=== PATIENT | female | born 1950 | race Caucasian/White ===

== ENCOUNTER → 2018-04-06 07:50 | Outpatient (CLI) | payer MEDICARE, OTHER, SELFPAY ==
[2018-04-06 08:41] LABS: Estimated Glomerular Filt Rate 49.7 mL/min (>60)
[2018-04-06 09:20] LABS: Cortisol AM (Before 10AM) 14.2 ug/dL (4.46-22.7)
[2018-04-08 18:42] LABS: Aldosterone/Renin Activity Rat 33.3 Ratio (0.9-28.9); Plama Renin, LC/MS/MS 0.12 ng/mL/h (0.25-5.82)
== END ==
PROVIDERS: Family Provider Physician Assistant; PCP Physician Assistant; Visit Provider Internal Medicine Endocrinology, Diabetes & Metabolism
DX: D35.00 Benign neoplasm of unspecified adrenal gland (principal)
CPT/HCPCS: 36415; 82088; 82533; 82565; 84244

== ENCOUNTER → 2018-04-07 10:01 | Outpatient (CLI) | payer MEDICARE, OTHER, SELFPAY ==
--- NOTE | 2018-04-07 | DI.RAD.S_ITS ---
PROCEDURE: XR CHEST 2V INDICATIONS: Acute upper respiratory infection TECHNIQUE: 2 views of the chest were acquired. COMPARISON: [facility], CR, CHEST 1 VIEW, 08/12/2017, 13:38. [facility], CR, CHEST 1 VIEW, 08/10/2017, 20:18. [facility], CT, CHEST/ABD/PEL WITHOUT CONTRAST, 08/12/2017, 15:09. [facility], CR, CHEST FOR PICC PLACEMENT, 08/12/2017, 17:13. FINDINGS: Surgical changes and devices: None. Lungs and pleura: The right lower lobe infiltrate is seen. Blunting of the costophrenic angles can be seen. No pneumothorax is detected. Mediastinum: The cardiac contours are within normal limits. The aorta demonstrates calcification and tortuosity. Bones and chest wall: No suspicious bony abnormalities. Age-appropriate bony degenerative changes are seen. Levoconvex thoracolumbar scoliotic curvature is seen. Soft tissues appear unremarkable. IMPRESSION: Right lower lobe infiltrate. Note: Findings relayed to [facility] office staff, Goldie, at 10:31 AM [place] time on April 07, 2018. [facility] will call back if there any questions. Dictated by: Juan Manuel Pink M.D. on 04/07/2018 at 9:28 Approved by: Juan Manuel Pink M.D. on 04/07/2018 at 9:33
== END ==
PROVIDERS: PCP Physician Assistant; Visit Provider Physician Assistant
DX: J06.9 Acute upper respiratory infection, unspecified (principal)
CPT/HCPCS: 71046

== ENCOUNTER → 2018-04-22 09:21 | Outpatient (CLI) | payer MEDICARE, OTHER, SELFPAY ==
[2018-04-22 11:32] LABS: Collection Time Urine 24 Hours; Creatinine 24 Hour Urine 754 mg/day (800-1800); Total Volume Urine 2600 mL
== END ==
PROVIDERS: Family Provider Physician Assistant; PCP Physician Assistant; Visit Provider Internal Medicine Endocrinology, Diabetes & Metabolism
DX: D35.00 Benign neoplasm of unspecified adrenal gland (principal)
CPT/HCPCS: 82530; 82570

== ENCOUNTER 2018-06-21 08:56 | Emergency (ER) | payer MEDICARE, OTHER, SELFPAY ==
[2018-06-21 09:06] VITALS: BP 145/82; PULSE 94; RESP 18; O2SAT 93; BMI 18.0
--- NOTE | 2018-06-21 09:11 | ED.SOB ---
HPI - SOB/Dyspnea General Chief Complaint: Shortness of Breath/Dyspnea Stated Complaint: DEHYDRATED,CHEST HURTS Time Seen by Provider: 06/21/18 09:06 Source: patient Mode of arrival: ambulatory Limitations: no limitations History of Present Illness Patient is a 68-year-old female here for evaluation of a productive cough, chest discomfort secondary to the cough, diarrhea. Patient states that she also feels very lethargic and dehydrated. States she is taking her medications. Has never been diagnosed with COPD but is a long-term smoker. She received a DuoNeb prior to my evaluation due to right-sided diminished sounds per respiratory therapy evaluation. Patient states that the DuoNeb did help her symptoms somewhat. She denies any fevers. Has had pneumonia multiple times in the past. Related Data Home Medications Medication Instructions Recorded Confirmed amlodipine [Norvasc] 10 mg PO HS #0 04/03/12 11/11/17 diazepam [Valium] 2.5 - 5 mg PO Q8HP #0 04/03/12 11/11/17 levothyroxine 0.088 mg PO QAM #0 04/03/12 11/11/17 morphine [MS Contin] 15 mg PO QAM #0 04/03/12 11/11/17 simvastatin [Zocor] 20 mg PO HS #0 04/03/12 11/11/17 omega 0-pfm-meo-fish oil [Fish Oil] 1,400 mg PO BID #0 08/05/12 11/11/17 topiramate [Topamax] 200 mg PO BID #0 08/05/12 11/11/17 [boswellia glucosamin] PO BID #0 08/10/17 aspirin 81 mg PO QDAY #0 08/10/17 11/11/17 hydromorphone [Dilaudid] 4 mg PO PRN PRN #0 08/10/17 11/12/17 losartan 50 mg PO QDAY #0 08/10/17 11/11/17 methocarbamol 500 mg PO PRN PRN #0 08/10/17 11/11/17 venlafaxine 150 mg PO QDAY #0 08/10/17 11/11/17 calcium citrate-vitamin D3 1,200 mg PO QDAY #0 08/12/17 11/11/17 [Citracal Regular] multivitamin [Multiple Vitamins] 1 tab PO QDAY #0 08/12/17 11/11/17 propranolol 1 cap PO QDAY 11/11/17 11/11/17 Previous Rx's Medication Instructions Recorded albuterol sulfate 2 puff INHALATION Q4-6H PRN #18 06/21/18 gram doxycycline hyclate 100 mg PO BID 7 Days #14 cap 06/21/18 Allergies Allergy/AdvReac Type Severity Reaction Status Date / Time latex Allergy Intermediate HIVES Verified 06/21/18 09:06 adhesive Allergy Mild HIVES Verified 06/21/18 09:06 [place] bupropion [From WELLBUTRIN] Allergy Mild Verified 06/21/18 09:06 cephalexin [From KEFLEX] Allergy Mild Verified 06/21/18 09:06 gabapentin [From NEURONTIN] Allergy Mild Verified 06/21/18 09:06 pregabalin [From LYRICA] Allergy Mild Verified 06/21/18 09:06 indomethacin [INDOMETHACIN] AdvReac Intermediate MEMORY Verified 06/21/18 09:06 ISSUES Review of Systems Constitutional Denies fever(s), Reports lethargy and Reports weakness Cardiovascular Reports chest pain, Denies palpitations, Reports dyspnea and Denies slow heart rate Respiratory Reports cough, Reports excessive phlegm production, Reports dyspnea and Reports wheezing Gastrointestinal Gastrointestinal: Denies abdominal pain, Reports diarrhea, Denies nausea and Denies vomiting Genitourinary Denies dysuria Musculoskeletal Denies myalgias and Denies arthralgias Integumentary/Breasts Denies lesions and Denies rash Neurologic Denies behavioral changes and Reports weakness Comments: Decreased activity Psychiatric Denies behavioral changes Endocrine Denies palpitations Hematologic/Lymphatic Comments: Not on anticoagulation Allergic/Immunologic Denies urticaria and Reports wheezing PFSH Medical History CVA (cerebral vascular accident) (Acute) Social History Smoking Status: Current every day smoker Social History Smoking Status: Current every day smoker Exam Initial Vital Signs Initial Vital Signs: Vital Signs Pulse Rate 94 H 06/21/18 09:06 Respiratory Rate 18 06/21/18 09:06 Blood Pressure 145/82 H 06/21/18 09:06 Pulse Oximetry 93 06/21/18 09:06 Const General: cooperative, comfortable, well developed, well groomed and No acute distress Orientation: alert, awake and oriented x3 HENMT Head: normocephalic Chest Chest: normal inspection of the chest Resp Effort & Inspection: normal respiratory effort Auscultation: other (Coarse breath sounds right side throughout.) Cardio Rate: regular rate Rhythm: regular rhythm Pulses: radial pulses present GI Inspection: non-distended Palpation: soft, No firm and No tender Skin Lesions: no lesions Rashes: no rashes Neuro General: alert, awake and oriented x3 Extrem General: normal to inspection and capillary refill normal Psych Appearance: grossly normal and well kempt Course Orders Ordered: ED Orders 06/21/18 09:10 XR chest 1V Stat B Type Natriuretic Peptide Stat Complete Blood Count AUTO DIFF Stat Comprehensive Metabolic Panel Stat Partial Thromboplastin Time Stat Prothrombin Time INR Stat Troponin I Stat EKG-12 Lead Stat RT Consult Eval and Treat Now Discontinued Medications Albuterol/Ipratropium (Duoneb) 3 ml INH NOW ONE Stop: 06/21/18 09:10 Last Admin: 06/21/18 09:12 Dose: 3 ml Sodium Chloride (Normal Saline 0.9%) 1,000 mls @ 1,000 mls/hr IV BOLUS ONE Stop: 06/21/18 10:10 Last Infusion: 06/21/18 11:14 Dose: 0 mls/hr Admin: 06/21/18 09:27 Dose: 1,000 mls/hr Vital Signs - 8 hr 06/21/18 10:32 06/21/18 11:00 Temperature 98.2 F Pulse Rate 82 87 Respiratory Rate 21 14 Blood Pressure [Right Arm] 152/83 H 149/88 H Pulse Oximetry 95 MDM - SOB/Dyspnea Medical Records Attestation: I reviewed the patient's medical records. Lab Data Attestation: I reviewed the patient's lab results. Result diagrams: 06/21/18 09:10 06/21/18 09:10 Lab Results 06/21/18 06/21/18 06/21/18 Range/Units 09:10 09:10 09:10 WBC 17.9 H (4.5-11.0) X10^3/uL RBC 4.42 (4.0-5.2) X10^6/uL Hgb 12.2 (12.0-16.0) g/dL Hct 37.7 (36-46) % MCV 85.3 (80-100) fL MCH 27.7 (26-34) PG MCHC 32.4 (30-36) % RDW 15.7 H (11.6-14.8) % Plt Count 661 H (150-400) X10^3/uL Neut % (Auto) 81.9 H (50-75) % Lymph % (Auto) 8.7 L (25-40) % [place] % (Auto) 7.7 (3-14) % Eos % (Auto) 0.9 L (2-4) % Baso % (Auto) 0.8 (0-2) % Neut # (Auto) 43535 H (9340-9441) /uL Lymph # (Auto) 1600 (6774-7992) /uL [place] # (Auto) 1400 H (0-900) /uL Eos # (Auto) 200 (0-450) /uL Baso # (Auto) 100 (0-100) /uL PT 12.1 (10.1-12.7) SECONDS INR 1.0 (0.9-1.3) APTT 32 (26.4-36.2) SECONDS Sodium 140 (137-145) mmol/L Potassium 3.4 (3.4-5.1) mmol/L Chloride 105 (98-107) mmol/L Carbon Dioxide 23 (22-32) mmol/L BUN 17 (7-17) mg/dL Creatinine 1.10 H (0.52-1.04) mg/dL Estimated GFR 49.5 L (>60) mL/min BUN/Creatinine Ratio 15.5 (6-22) Glucose 149 H (80-110) mg/dL Calcium 9.9 (8.4-10.2) mg/dL Total Bilirubin 0.6 (0.2-1.3) mg/dL AST 51 H (14-36) IU/L ALT 42 (9-52) IU/L Alkaline Phosphatase 141 H (38-126) U/L Troponin I (0.01-0.034) ng/mL B-Natriuretic Peptide 221 H (<100) Total Protein 8.9 H (6.3-8.2) g/dL Albumin 4.2 (3.5-5.0) g/dL Globulin 4.7 H (1.7-4.1) g/dL Albumin/Globulin Ratio 0.9 L (1.0-2.8) 06/21/18 Range/Units 09:10 WBC (4.5-11.0) X10^3/uL RBC (4.0-5.2) X10^6/uL Hgb (12.0-16.0) g/dL Hct (36-46) % MCV (80-100) fL MCH (26-34) PG MCHC (30-36) % RDW (11.6-14.8) % Plt Count (150-400) X10^3/uL Neut % (Auto) (50-75) % Lymph % (Auto) (25-40) % [place] % (Auto) (3-14) % Eos % (Auto) (2-4) % Baso % (Auto) (0-2) % Neut # (Auto) (1251-0629) /uL Lymph # (Auto) (3741-1476) /uL [place] # (Auto) (0-900) /uL Eos # (Auto) (0-450) /uL Baso # (Auto) (0-100) /uL PT (10.1-12.7) SECONDS INR (0.9-1.3) APTT (26.4-36.2) SECONDS Sodium (137-145) mmol/L Potassium (3.4-5.1) mmol/L Chloride (98-107) mmol/L Carbon Dioxide (22-32) mmol/L BUN (7-17) mg/dL Creatinine (0.52-1.04) mg/dL Estimated GFR (>60) mL/min BUN/Creatinine Ratio (6-22) Glucose (80-110) mg/dL Calcium (8.4-10.2) mg/dL Total Bilirubin (0.2-1.3) mg/dL AST (14-36) IU/L ALT (9-52) IU/L Alkaline Phosphatase (38-126) U/L Troponin I < 0.012 (0.01-0.034) ng/mL B-Natriuretic Peptide (<100) Total Protein (6.3-8.2) g/dL Albumin (3.5-5.0) g/dL Globulin (1.7-4.1) g/dL Albumin/Globulin Ratio (1.0-2.8) Imaging Data Chest x-ray: Radiologist's impression: [address] [id number] XRay Report Signed Patient: Yisel Cuevas JMR#: [id number] : 2Acct:[id number] Age/Sex: 68 / FDate of Service: 06/21/18 Loc: ED Accession Number: [id number] Procedure: XR chest 1V Ordering Provider: Andrea Shaffer D.O. PROCEDURE: XR CHEST 1V INDICATIONS: Shortness of breath TECHNIQUE: One view of the chest was acquired. COMPARISON: [facility], CR, XR CHEST 2V, 04/07/2018, 10:08. [facility], CR, CHEST FOR PICC PLACEMENT, 08/12/2017, 17:13. FINDINGS: Surgical changes and devices: None. Lungs and pleura: Lungs are abnormal with a chronic interstitial prominence and what appears to be mild or early pneumonia left lower lobe. Also, lung volumes are large, COPD is suspected. No pleural effusions or pneumothorax. Mediastinum: Mediastinal contours appear normal. Heart size is normal. Bones and chest wall: No suspicious bony lesions. Overlying soft tissues appear unremarkable. IMPRESSION: Suspect COPD given the large lung volumes present. Chronic interstitial prominence. Left lower lobe mild or early pneumonia. Dictated by: Jose Montoya M.D. on 06/21/2018 at 9:56 Approved by: Jose Montoya M.D. on 06/21/2018 at 9:56 ECG Data Attestation: I personally reviewed and interpreted this ECG as follows: Prior ECG tracings: not available for review Interpretation: Sinus rhythm Ventricular rate of 91 Normal axis Normal QRS Normal QTC LVH Nonspecific ST T wave changes MDM Narrative Medical decision making narrative: Patient not in any respiratory distress. Has a left-sided pneumonia on the chest x-ray. This does explain her leukocytosis. Patient has had thrombocytosis in the past. Was slightly elevated today but this could also be an acute phase reactant secondary to her pneumonia. Will treat the patient with antibiotics. Do not feel like she needs admitted to the hospital. I discussed return precautions with the patient. She expressed understanding and agreement with plan. Discharge Plan Departure Patient Disposition: Home Clinical Impression: Pneumonia, Thrombocytosis Discharge Date/Time: 06/21/18 11:30 Interventions: ED Discharge Assessment Last Done: 06/21/18 12:02 Instructions: DI for Pneumonia -- Adult Activity Restrictions/Additional Instructions: I do recommend that on Friday you contact your primary care doctor for a follow-up. Take your medications as directed. Return to the emergency department for any new or worsening symptoms Prescriptions: New doxycycline hyclate 100 mg capsule 100 mg PO BID 7 Days Qty: 14 RF: 0 albuterol sulfate 90 mcg/actuation HFA aerosol inhaler 2 puff INHALATION Q4-6H PRN (Reason: shortness of breath or wheezing) Qty: 18 RF: 0 No Action morphine [MS Contin] 30 MG tablet extended release 15 mg PO QAM Qty: 0 RF: 0 levothyroxine 88 MCG tablet 0.088 mg PO QAM Qty: 0 RF: 0 simvastatin [Zocor] 20 MG tablet 20 mg PO HS Qty: 0 RF: 0 amlodipine [Norvasc] 10 MG tablet 10 mg PO HS Qty: 0 RF: 0 diazepam [Valium] 5 MG tablet 2.5 - 5 mg PO Q8HP Qty: 0 RF: 0 topiramate [Topamax] 100 MG tablet 200 mg PO BID Qty: 0 RF: 0 omega 1-zcs-xsr-fish oil [Fish Oil] 1,000 mg (120 mg-180 mg) Capsule 1,400 mg PO BID Qty: 0 RF: 0 aspirin 81 MG tablet,chewable 81 mg PO QDAY Qty: 0 RF: 0 [boswellia glucosamin] PO BID Qty: 0 RF: 0 losartan 50 MG tablet 50 mg PO QDAY Qty: 0 RF: 0 hydromorphone [Dilaudid] 4 MG tablet 4 mg PO PRN PRN (Reason: Pain (Scale Score 7-10)) Qty: 0 RF: 0 methocarbamol 500 MG tablet 500 mg PO PRN PRN (Reason: UNKNOWN) Qty: 0 RF: 0 venlafaxine 150 MG capsule,extended release 24hr 150 mg PO QDAY Qty: 0 RF: 0 calcium citrate-vitamin D3 [Citracal Regular] 250 mg calcium- 200 unit Tablet 1,200 mg PO QDAY Qty: 0 RF: 0 multivitamin [Multiple Vitamins] 1 EACH tablet 1 tab PO QDAY Qty: 0 RF: 0 propranolol 120 MG capsule,extended release 24 hr 1 cap PO QDAY RF: 0
[2018-06-21 09:12] VITALS: PULSE 85; RESP 12; O2SAT 92
[2018-06-21] MEDS: ALBUTEROL/IPRATROPIUM 3 ML AMPUL INH (09:12)
[2018-06-21 09:19] LABS: Add Manual Diff / Slide Review NO; Basophils Absolute Auto 100 /uL (0-100); Basophils Percent Auto 0.8 % (0-2); Eosinophils Absolute Auto 200 /uL (0-450); Eosinophils Percent Auto 0.9 % (2-4); Hematocrit 37.7 % (36-46); Hemoglobin 12.2 g/dL (12.0-16.0); Lymphocytes Absolute Auto 1600 /uL (1100-4500); Lymphocytes Percent Auto 8.7 % (25-40); Mean Corpuscular HGB Conc 32.4 % (30-36); Mean Corpuscular Hemoglobin 27.7 PG (26-34); Mean Corpuscular Volume 85.3 fL (80-100); Monocytes Absolute Auto 1400 /uL (0-900); Monocytes Percent Auto 7.7 % (3-14); Neutrophils Absolute Auto 14700 /uL (1500-7000); Neutrophils Percent Auto 81.9 % (50-75); Platelet Count 661 X10^3/uL (150-400); Red Blood Cell Count 4.42 X10^6/uL (4.0-5.2); Red Cell Distribution Width 15.7 % (11.6-14.8); White Blood Cell Count 17.9 X10^3/uL (4.5-11.0)
[2018-06-21 09:25] LABS: Prothrombin Time 12.1 SECONDS (10.1-12.7)
[2018-06-21] MEDS: SODIUM CHLORIDE 0.9% 1,000 ML 1000 ML IV (09:27)
[2018-06-21 09:28] LABS: PTT Partial Thromboplastin Tim 32 SECONDS (26.4-36.2)
[2018-06-21 09:30] LABS: Alanine Aminotransferase 42 IU/L (9-52); Albumin 4.2 g/dL (3.5-5.0); Albumin Globulin Ratio 0.9 (1.0-2.8); Alkaline Phosphatase 141 U/L (38-126); Aspartate Aminotransferase 51 IU/L (14-36); BUN Creatinine Ratio 15.5 (6-22); Bilirubin Total 0.6 mg/dL (0.2-1.3); Blood Urea Nitrogen 17 mg/dL (7-17); Calcium 9.9 mg/dL (8.4-10.2); Carbon Dioxide 23 mmol/L (22-32); Chloride 105 mmol/L (98-107); Estimated Glomerular Filt Rate 49.5 mL/min (>60); Globulin 4.7 g/dL (1.7-4.1); Glucose 149 mg/dL (80-110); HEMOLYSIS 41 (0-50); Potassium 3.4 mmol/L (3.4-5.1); Sodium 140 mmol/L (137-145); Total Protein 8.9 g/dL (6.3-8.2)
[2018-06-21 09:43] LABS: Troponin I < 0.012 ng/mL (0.01-0.034)
[2018-06-21 09:44] LABS: B Type Natriuretic Peptide 221 (<100)
[2018-06-21 10:32] VITALS: BP 152/83; PULSE 82; RESP 21
[2018-06-21 11:00] VITALS: BP 149/88; PULSE 87; RESP 14; TEMP 36.8; O2SAT 95
--- NOTE | 2018-06-21 12:02 | PC.NURSE ---
spacer training done by RT.
== END 2018-06-21 11:30 | disposition home or self-care (01) ==
PROVIDERS: Emergency Provider Emergency Medicine; Family Provider Physician Assistant; PCP Physician Assistant
DX: J18.9 Pneumonia, unspecified organism (principal); D69.6 Thrombocytopenia, unspecified
CPT/HCPCS: 36591; 71045; 80053; 83880; 84484; 85025; 85610; 85730; 93005; 94640; 96360; 96361; 99283; 99285

== ENCOUNTER → 2018-07-15 10:33 | Outpatient (CLI) | payer MEDICARE, OTHER, SELFPAY ==
--- NOTE | 2018-07-15 | DI.CT.S_ITS ---
PROCEDURE: CT CHEST WO CON INDICATIONS: Pneumonia TECHNIQUE: Noncontrast 5 mm thick sections acquired from the pulmonary apices to the posterior costophrenic angles. 7 mm thick coronal and sagittal MIP reformats were then acquired. For radiation dose reduction, the following was used: automated exposure control, adjustment of mA and/or kV according to patient size. COMPARISON: [facility], CT, CHEST/ABD/PEL WITHOUT CONTRAST, 08/12/2017, 15:09. [facility], CR, XR CHEST 2V, 04/07/2018, 10:08. [facility], CR, XR CHEST 1V, 06/21/2018, 9:14. FINDINGS: Image quality: Excellent. Lungs and pleura: Minimal patchy opacities can be seen within the dependent lower lobes, right worse than left. There is also mild patchy opacity seen within the lingula. These areas of abnormal consolidation are clearly improved compared to 08/12/17 and are also believed to be compared to the prior recent plain film. Within the left upper lobe, patchy nodular opacities can be seen. No pneumothorax or pleural effusions are seen. The central airways are patent. Centrilobular emphysematous changes are seen. These are more prominent at the lung apices than at the lung bases. Mediastinum: Heart size is normal. No pericardial effusion. No mediastinal adenopathy by size criteria. Thoracic aorta and central pulmonary arteries are normal in size. Atherosclerotic calcification is noted. Esophagus is normal in caliber. No hiatal hernia. Bones and chest wall: No suspicious bony lesions. No vertebral body compression fractures. No axillary or supraclavicular adenopathy by size criteria. Thyroid gland demonstrates no significant noncontrast abnormality. Abdomen: There is a low-density right adrenal nodule seen that measures 2.3 cm and -18 Hounsfield units. Low-density nodular thickening can also be seen on the left adrenal gland, with the largest nodule measuring 2.6 cm and the -8 Hounsfield units. Visualized upper abdominal solid organs and bowel loops appear normal in the absence of contrast. IMPRESSION: Improving opacity seen at the lung bases, with an appearance is most consistent with resolving infection. As clinically appropriate, please consider a followup noncontrast chest CT in 3 months, to assure complete resolution. Benign fatty lesions are seen of both adrenal glands. As clinically appropriate, please correlate with macronodular adrenal hyperplasia and serum cortical levels. Dictated by: Juan Manuel Pink M.D. on 07/15/2018 at 12:32 Approved by: Juan Manuel Pink M.D. on 07/15/2018 at 12:37
== END ==
PROVIDERS: Family Provider Physician Assistant; PCP Physician Assistant; Visit Provider Physician Assistant
DX: J18.9 Pneumonia, unspecified organism (principal)
CPT/HCPCS: 71250

== ENCOUNTER → 2018-07-20 07:41 | Outpatient (CLI) | payer MEDICARE, OTHER, SELFPAY ==
--- NOTE | 2018-07-20 | DI.MG.S_ITS ---
BILATERAL DIGITAL SCREENING MAMMOGRAM 3D/2D WITH CAD: 07/20/2018 CLINICAL: Routine screening. Family history of breast cancer. Comparison is made to exams dated: 04/21/2017 mammogram, 04/11/2014 mammogram, and 03/28/2011 mammogram - [facility]. The tissue of both breasts is heterogeneously dense. This may lower the sensitivity of mammography. Current study was also evaluated with a Computer Aided Detection (CAD) system. No significant masses, calcifications, or other findings are seen in either breast. There has been no significant interval change. IMPRESSION: NEGATIVE There is no mammographic evidence of malignancy. A 1 year screening mammogram is recommended. This exam was interpreted at Station ID: [id number]. NOTE: For mammograms, a report in lay terms will be sent to the patient. Approximately 15% of breast malignancies will not be visualized mammographically. In the management of a palpable breast mass, a negative mammogram must not discourage biopsy of a clinically suspicious lesion. Electronically Signed By: Antony heredia/lynn:07/20/2018 12:43:50 letter sent: Normal Exam ACR BI-RADS Category 1: Negative [id number]
== END ==
PROVIDERS: PCP Physician Assistant; Visit Provider Physician Assistant
DX: Z12.31 Encounter for screening mammogram for malignant neoplasm of breast (principal); Z80.3 Family history of malignant neoplasm of breast
CPT/HCPCS: 77063; 77067

== ENCOUNTER → 2018-07-23 06:39 | Outpatient (CLI) | payer MEDICARE, OTHER, SELFPAY ==
--- NOTE | 2018-07-23 06:40 | DI.US.S_ITS ---
PROCEDURE: US ABDOMEN LIMITED INDICATIONS: ESSENTIAL THROBOCYTHEMIA TECHNIQUE: Real-time focused scanning was performed of the abdomen, with image documentation. COMPARISON: None. FINDINGS: Study limited at clinician request to splenic evaluation. There is normal spleen volume at 33.3 CC with a craniocaudad length of the spleen at 7.6 cm. Splenic vein thrombosis is not present. IMPRESSION: Normal spleen. Dictated by: Jose Montoya M.D. on 07/23/2018 at 9:06 Approved by: Jose Montoya M.D. on 07/23/2018 at 9:07
== END ==
PROVIDERS: Family Provider Physician Assistant; PCP Physician Assistant; Visit Provider Nurse Practitioner Gerontology
DX: D47.3 Essential (hemorrhagic) thrombocythemia (principal)
CPT/HCPCS: 76705

== ENCOUNTER → 2018-10-19 08:52 | Outpatient (CLI) | payer MEDICARE, OTHER, SELFPAY ==
[2018-10-19 09:49] LABS: Add Manual Diff / Slide Review NO; Basophils Absolute Auto 100 /uL (0-100); Basophils Percent Auto 1.2 % (0-2); Eosinophils Absolute Auto 300 /uL (0-450); Hematocrit 35.8 % (36-46); Hemoglobin 11.4 g/dL (12.0-16.0); Lymphocytes Absolute Auto 2600 /uL (1100-4500); Lymphocytes Percent Auto 22.1 % (25-40); Mean Corpuscular HGB Conc 31.9 % (30-36); Mean Corpuscular Hemoglobin 27.8 PG (26-34); Mean Corpuscular Volume 87.2 fL (80-100); Monocytes Absolute Auto 900 /uL (0-900); Monocytes Percent Auto 7.4 % (3-14); Neutrophils Absolute Auto 7700 /uL (1500-7000); Neutrophils Percent Auto 66.3 % (50-75); Platelet Count 420 X10^3/uL (150-400); Red Cell Distribution Width 17.6 % (11.6-14.8); White Blood Cell Count 11.6 X10^3/uL (4.5-11.0)
[2018-10-19 09:58] LABS: Alanine Aminotransferase 38 IU/L (9-52); Albumin Globulin Ratio 1.2 (1.0-2.8); Alkaline Phosphatase 67 U/L (38-126); Aspartate Aminotransferase 37 IU/L (14-36); BUN Creatinine Ratio 13.6 (6-22); Bilirubin Total 0.3 mg/dL (0.2-1.3); Blood Urea Nitrogen 15 mg/dL (7-17); Calcium 9.4 mg/dL (8.4-10.2); Carbon Dioxide 27 mmol/L (22-32); Chloride 108 mmol/L (98-107); Estimated Glomerular Filt Rate 49.5 mL/min (>60); Globulin 3.3 g/dL (1.7-4.1); Glucose 161 mg/dL (80-110); HEMOLYSIS < 15 (0-50); Lactate Dehydrogenase 569 U/L (313-618); Sodium 143 mmol/L (137-145); Total Protein 7.3 g/dL (6.3-8.2)
[2018-10-19 09:59] LABS: Potassium 2.8 mmol/L (3.4-5.1)
[2018-10-19 10:10] LABS: HEMOLYSIS < 15 (0-50); Iron 41 ug/dL (37-170)
[2018-10-19 10:22] LABS: Percent Iron Saturation 10 % (15-50); Total Iron Binding Capacity 394 ug/dL (265-497); Transferrin 323 mg/dL (206-381)
[2018-10-19 10:32] LABS: Ferritin 10.5 ng/mL (11.1-264)
[2018-10-21 13:53] LABS: Beta-2-Microglobulin 2.86 mg/L (< 2.52)
[2018-10-21 21:37] LABS: Albumin 3.5 g/dL (3.8-4.8); Alpha 1 Globulin 0.3 g/dL (0.2-0.3); Alpha 2 Globulin 0.9 g/dL (0.5-0.9); Beta 1 Globulin 0.5 g/dL (0.4-0.6); Protein, Total 6.7 g/dL (6.1-8.1)
== END ==
PROVIDERS: Family Provider Physician Assistant; PCP Physician Assistant; Visit Provider Internal Medicine Hematology & Oncology
DX: D47.3 Essential (hemorrhagic) thrombocythemia (principal)
CPT/HCPCS: 36415; 80053; 82232; 82728; 83540; 83550; 83615; 84155; 84165; 85025

== ENCOUNTER 2018-12-03 11:08 | Day surgery (SDC) | payer MEDICARE, OTHER, SELFPAY ==
[2018-12-03] MEDS: PROPARACAINE 0.5% OPHTH SOL 2 DROPS EYE-OP (11:28)
[2018-12-03 11:34] VITALS: BP 153/89; PULSE 75; RESP 16; TEMP 37; O2SAT 99; BMI 20.5
[2018-12-03] MEDS: CATARACT EYE COMPOUND (10 DROPS/SYRINGE) 3 DROPS EYE-OP (11:36)
--- NOTE | 2018-12-03 11:58 | PM.PREOP ---
Pre-operative Note Interval Note History & Physical reviewed/Exam performed by Physician: Yes Changes to H&P: No
[2018-12-03] MEDS: MOXIFLOXACIN OPHTH DROPS 3 ML BOTTLE 2 DROPS INJ (12:22)
[2018-12-03] MEDS: PHENYLEPHRINE/LIDOCAINE VIAL (OR) 0.2 ML EYE-OP (12:22)
[2018-12-03] MEDS: TETRACAINE 0.5% OPHTH DROPS 4 ML 2 DROPS EYE-OP (12:23)
[2018-12-03] MEDS: CHONDROIDTIN/SOD HYALURONATE 1.05 ML SYRINGE INTRAOCULA (12:23)
[2018-12-03] MEDS: BALANCED SALT IRRIG SOLN NO.2 15 ML 5 ML IRR (12:23)
[2018-12-03] MEDS: LIDOCAINE 2% INJ SDV 0.5 ML TOP (12:24)
[2018-12-03] MEDS: BALANCED SALT IRRIG SOLN NO.2 500 ML, EPINEPHrine 1 MG IRR (12:24)
--- NOTE | 2018-12-03 12:50 | PM.OP.1 ---
Procedure & Clinicians Procedure: Cataract extraction with intraocular lens implant, right Same procedure as scheduled: Yes Indications: Visually significant age related nuclear sclerosis cataract, right Surgeon: Girma Regan Click Yes if Unassisted: Yes Anesthesia Type: MAC +/- Operative Notes Procedure in detail: The patient was brought to the operating suite. The correct patient, surgical site and lens were confirmed. 0.5 % tetracaine drops were placed in the right eye. The patient was prepped and draped in the typical sterile manner. A lid speculum was placed in the eye. 2% lidocaine was placed on the eye. A paracentesis port was created with a side-port blade. 0.1 mL of 1% preservative free lidocaine with phenylephrine was injected into the anterior chamber. Viscoelastic was injected into the anterior chamber. A 2.6mm keratome was used to create a clear corneal temporal incision. Cystotome and Utrata forceps were used to create a continuous curvilinear capsulorrhexis. Balanced salt solution was used to hydrodissect the nucleus. Phacoemulsification was used to remove the lens. The capsular bag was inflated with viscoelastic. A Beckford ZBOO +23.0D lens was inserted into the capsule. Viscoelastic was removed and the wound hydrated. The wound was found to be leak free and the eye was assessed to be at normal physiologic pressure. 0.1mL Vigamox was injected into the anterior chamber. The lid speculum was removed and the patient left the operating room in excellent condition. Complications: none Condition: stable Disposition: same day surgery
[2018-12-03 12:52] VITALS: BP 135/81; PULSE 59; RESP 16; TEMP 36.8; O2SAT 100
[2018-12-03 13:03] VITALS: BP 135/81; PULSE 59; RESP 16; TEMP 36.8; O2SAT 100
--- NOTE | 2018-12-03 14:57 | SUR.PHASEII ---
R eye c/d/i dr singh retaped clear patch, pt dressedw hen ready and left when ready and in stable condition.
== END 2018-12-03 13:10 | disposition home or self-care (01) ==
LOC: OR 11:13
PROVIDERS: Family Provider Physician Assistant; PCP Physician Assistant; Visit Provider Ophthalmology
PROC: (CPT 66984; principal; 2018-12-03 12:30)
DX: H25.11 Age-related nuclear cataract, right eye (principal); I10 Essential (primary) hypertension; D64.9 Anemia, unspecified; F41.9 Anxiety disorder, unspecified
CPT/HCPCS: 66984; J0171; J2250; J3010

== ENCOUNTER 2018-12-24 08:46 | Day surgery (SDC) | payer MEDICARE, OTHER, SELFPAY ==
[2018-12-24 07:55] VITALS: BP 167/92; PULSE 64; RESP 15; TEMP 36; O2SAT 99
[2018-12-24] MEDS: PROPARACAINE 0.5% OPHTH SOL 2 DROPS EYE-OP (08:18)
[2018-12-24] MEDS: CATARACT EYE COMPOUND (10 DROPS/SYRINGE) 3 DROPS EYE-OP ×3 (08:23→08:33)
[2018-12-24 08:32] VITALS: BMI 19.9
--- NOTE | 2018-12-24 08:47 | PM.PREOP ---
Pre-operative Note Interval Note History & Physical reviewed/Exam performed by Physician: Yes Changes to H&P: No
[2018-12-24] MEDS: CHONDROIDTIN/SOD HYALURONATE 1.05 ML SYRINGE INTRAOCULA (09:18)
[2018-12-24] MEDS: MOXIFLOXACIN OPHTH DROPS 3 ML BOTTLE 2 DROPS INJ (09:18)
[2018-12-24] MEDS: PHENYLEPHRINE/LIDOCAINE VIAL (OR) 0.2 ML EYE-OP (09:18)
[2018-12-24] MEDS: BALANCED SALT IRRIG SOLN NO.2 15 ML 5 ML IRR (09:18)
[2018-12-24] MEDS: LIDOCAINE 2% INJ SDV 2 ML INJ (09:19)
[2018-12-24] MEDS: BALANCED SALT IRRIG SOLN NO.2 500 ML, EPINEPHrine 1 MG IRR (09:19)
[2018-12-24] MEDS: TETRACAINE 0.5% OPHTH DROPS 15 ML 2 DROPS EYE-LEFT (09:19)
--- NOTE | 2018-12-24 09:40 | PM.OP.1 ---
Procedure & Clinicians Procedure: Cataract extraction with intraocular lens implant, left Same procedure as scheduled: Yes Indications: Visually significant nuclear sclerosis, left Surgeon: Girma Regan Click Yes if Unassisted: Yes Operative Notes Procedure in detail: The patient was brought to the operating suite. The correct patient, surgical site and lens were confirmed. 0.5 % tetracaine drops were placed in the left eye. The patient was prepped and draped in the typical sterile manner. A lid speculum was placed in the eye. 2% lidocaine was placed on the eye. A paracentesis port was created with a side-port blade. 0.1 mL of 1% preservative free lidocaine with phenylephrine was injected into the anterior chamber. Viscoelastic was injected into the anterior chamber. A 2.6mm keratome was used to create a clear corneal temporal incision. Cystotome and Utrata forceps were used to create a continuous curvilinear capsulorrhexis. Balanced salt solution was used to hydrodissect the nucleus. Phacoemulsification was used to remove the lens. The capsular bag was inflated with viscoelastic. A Beckford ZBOO +23.0D lens was inserted into the capsule. Viscoelastic was removed and the wound hydrated. The wound was found to be leak free and the eye was assessed to be at normal physiologic pressure. 0.1mL Vigamox was injected into the anterior chamber. The lid speculum was removed and the patient left the operating room in excellent condition. Complications: none Condition: stable Disposition: same day surgery
[2018-12-24 09:55] VITALS: BP 145/79; PULSE 66; RESP 16; TEMP 36.6; O2SAT 99
== END 2018-12-24 10:10 | disposition home or self-care (01) ==
LOC: OR 08:47
PROVIDERS: PCP Internal Medicine; Visit Provider Ophthalmology
PROC: (CPT 66984; principal; 2018-12-24 08:45)
DX: H25.12 Age-related nuclear cataract, left eye (principal); I10 Essential (primary) hypertension; M79.7 Fibromyalgia; B19.20 Unspecified viral hepatitis C without hepatic coma; D64.9 Anemia, unspecified; F41.9 Anxiety disorder, unspecified; Z86.73 Personal history of transient ischemic attack (TIA), and cerebral infarction without residual deficits
CPT/HCPCS: 66984; J0171; J2250; J3010

== ENCOUNTER → 2019-01-05 10:50 | Outpatient (CLI) | payer MEDICARE, OTHER, SELFPAY ==
--- NOTE | 2019-01-05 | DI.CT.S_ITS ---
PROCEDURE: CT CHEST ABD PEL W CON INDICATIONS: Disorder of adrenal gland, unspecified TECHNIQUE: After the administration of oral and intravenous contrast, 5 mm thick sections acquired from the lung apices to the symphysis. 5 mm coronal and sagittal reformats were performed, with additional 7 mm coronal MIP reformats through the lungs. For radiation dose reduction, the following was used: automated exposure control, adjustment of mA and/or kV according to patient size. COMPARISON: [facility], CT, CT CHEST WO CON, 07/15/2018, 10:47. Merged With [facility], CT, CHEST/ABD/PEL WITHOUT CONTRAST, 08/12/2017, 15:09. FINDINGS: Image quality: Excellent. CHEST: Lungs and pleura: No acute consolidative opacities. Spiculated left upper lobe pulmonary nodule measures 1.7 x 0.8 cm, previously 1.0 x 0.6 cm. There is upper lobe predominant centrilobular emphysema. Additional 4 mm nodule seen in the lingula appears increased in size, previously 1 mm. Branching tubular structure in the left upper lobe image 75 could represent mucoid impaction. No pleural effusions or pneumothorax. Central and peripheral airways appear patent and normal in caliber. Scattered scarring and atelectasis. Mediastinum: Heart size is normal. No pericardial effusion. No mediastinal or hilar adenopathy by size criteria. Thoracic aorta and central pulmonary arteries are normal in size. Esophagus is normal in caliber. No hiatal hernia. Chest wall: No axillary or supraclavicular adenopathy by size criteria. Thyroid gland unremarkable. ABDOMEN: Solid organs: Hepatic steatosis. Gallbladder unremarkable. Biliary system is mildly prominent although probably unchanged since 08/12/17. Pancreas enhances normally. Spleen is normal in size and enhancement. Bilateral adrenal nodules or hyperplasia appear grossly unchanged dating back to 08/12/17. Kidneys demonstrate normal size and enhancement, without hydronephrosis. Peritoneum and bowel: Bowel loops demonstrate normal wall thickness and caliber. No free fluid or air. Nodes and vessels: No retroperitoneal or mesenteric adenopathy by size criteria. Aorta and inferior vena cava are normal in size. Scattered vascular calcifications. As Miscellaneous: No ventral hernias. PELVIS: Distended appearance of the bladder. Miscellaneous: No inguinal hernias or adenopathy. Bones: No suspicious bony lesions. No vertebral body compression fractures. Multilevel spondylosis, Multilevel degenerative endplate sclerosis and spurring. Diffuse facet arthropathy. IMPRESSION: Bilateral adrenal hyperplasia appears grossly unchanged. Interval enlargement of left upper lobe spiculated pulmonary nodule now measuring 1.7 cm, concerning for active metastatic disease. Interval development of 4 mm lingular pulmonary nodule also suspicious for early metastatic disease although recommend continued surveillance on subsequent studies. Additional chronic and incidental findings as above. Upper lobe predominant centrilobular emphysema. No acute consolidation. Dictated by: Raffaele Ramirez M.D. on 01/05/2019 at 15:57 Approved by: Raffaele Ramirez M.D. on 01/05/2019 at 16:09
[2019-01-05 11:57] LABS: BUN Creatinine Ratio 17.3 (6-22); Blood Urea Nitrogen 19 mg/dL (7-17); Estimated Glomerular Filt Rate 49.5 mL/min (>60)
== END ==
PROVIDERS: PCP Internal Medicine; Visit Provider Internal Medicine
DX: E27.9 Disorder of adrenal gland, unspecified (principal); R91.8 Other nonspecific abnormal finding of lung field
CPT/HCPCS: 36415; 71260; 74177; 82565; 84520; Q9967

== ENCOUNTER → 2019-01-22 10:41 | Outpatient (CLI) | payer MEDICARE, OTHER, SELFPAY ==
--- NOTE | 2019-01-29 09:00 | PM.PFT.1 ---
Pulmonary Function Test Referral & Results Date Patient Seen: 01/22/19 Requesting provider: Ce Contreras Results: The spirometry demonstrates an FVC of 3.48 L which is 112% of predicted. The FEV1 was measured at 2.58 L which is 110% of predicted. The FEV1/FVC ratio was 70 for which is 97% of predicted. Following the administration of bronchodilator there was no appreciable change to above normal numbers. Lung volumes show an SVC of 3.36 L which is 115% of predicted. The diffusing capacity was measured at 11.90 which is 49% of predicted. No hemoglobin value was provided, so no correction for potential anemia could be made, if appropriate. The maximum voluntary ventilation was slightly reduced Interpretation: This study demonstrates normal spirometry There is a significant reduction in diffusing capacity suggesting significant disease at the capillary alveolar level.
== END ==
PROVIDERS: PCP Internal Medicine; Visit Provider Internal Medicine
DX: R91.8 Other nonspecific abnormal finding of lung field (principal); J44.9 Chronic obstructive pulmonary disease, unspecified; J43.2 Centrilobular emphysema
CPT/HCPCS: 94060; 94726; 94729

== ENCOUNTER → 2019-01-26 06:19 | Outpatient (CLI) | payer MEDICARE, OTHER, SELFPAY | PROVIDERS: PCP Internal Medicine; Visit Provider Internal Medicine | DX: M54.16 Radiculopathy, lumbar region (principal); Z53.9 Procedure and treatment not carried out, unspecified reason ==

== ENCOUNTER → 2019-02-09 09:03 | Outpatient (CLI) | payer MEDICARE, OTHER, SELFPAY ==
--- NOTE | 2019-02-09 | DI.MRI.S_ITS ---
PROCEDURE: MR LUMBAR SPINE WO CON INDICATIONS: Radiculopathy, lumbar region TECHNIQUE: Noncontrast sagittal T1 spin echo and T2 fast echo, coronal T2, sagittal STIR, axial T1 and T2 fast spin echo through the lumbar spine. COMPARISON: [facility], CT, CT CHEST ABD PEL W CON, 01/05/2019, 12:13. [facility], MR, LUMBAR SPINE W&W/O CONTRAST, 04/09/2010, 14:58. [facility], CT, L-SPINE W/O CONTRAST, 04/09/2010, 11:04. [facility], CR, L-SPINE 2-3 VIEWS, 08/18/2012, 8:27. FINDINGS: Image quality: Excellent. Alignment and Curvature: The same numbering system which was employed on the prior MRI and CT reports will be used on the current examination. There is mild grade 1 retrolisthesis of L1 on L2 and L2 on L3. Mild grade 1 anterolisthesis of L4 on L5. Moderate leftward curvature of the upper lumbar spine. Mild rightward curvature of the lower lumbar spine. Bone Marrow: Marrow is of normal overall signal. No acute vertebral body compression fractures. Left-sided L5-S1 fusion has been performed. Right-sided L4-L5 fusion has been performed. Moderate reactive signal within the endplates adjacent to the L1-L2 and L4-L5 intervertebral discs. Mild reactive signal within the endplates adjacent to the T12-L1, L2-L3, and L3-L4 intervertebral discs. Spinal Cord: Conus medullaris terminates at the L1-L2 disc space level. Visualized cord demonstrates normal signal and size. Paraspinous Soft Tissues: No change in bilateral adrenal nodules. T12-L1: Moderate disc desiccation. Mild disc height loss. Mild diffuse disc bulge with superimposed right paracentral protrusion. Mild facet and ligament flavum hypertrophy. Mild canal stenosis. Mild bilateral foraminal stenosis. No change. L1-L2: Severe disc height loss and desiccation. Moderate diffuse disc bulge with superimposed broad-based right far lateral protrusion. Mild facet and ligamentum flavum hypertrophy. Mild canal stenosis is unchanged. Increased, moderate right foraminal stenosis. No change in mild left foraminal stenosis. L2-L3: Moderate disc height loss and desiccation. Moderate diffuse disc bulge. Mild facet and ligamentum flavum hypertrophy. Mild epidural lipomatosis. Increased, severe canal stenosis. Increased, moderate right and severe left foraminal stenosis. Left intraforaminal L2 nerve root compression, new since the prior examination. L3-L4: Mild disc height loss and desiccation. Mild diffuse disc bulge. Moderate facet and ligamentum flavum hypertrophy. Mild canal stenosis. Mild right and moderate left foraminal stenosis. No change. L4-L5: Interbody device placement and right kelsey-fusion. Mild residual disc osteophyte complex. Mild facet hypertrophy bilaterally. Mild canal stenosis. Moderate left and mild right foraminal stenosis. No change. L5-S1: Interbody device placement and left kelsey-fusion. Mild bilateral facet hypertrophy. No significant canal stenosis. Mild bilateral foraminal stenosis. No change. IMPRESSION: 1. L4-L5 and L5-S1 fusion has been performed, with no significant canal, nor foraminal stenosis at the fused levels. 2. Multilevel degenerative disc and facet disease, as well as ligamentum flavum hypertrophy and epidural lipomatosis. 3. Multilevel canal stenoses, worst at L2-L3, where there is severe canal stenosis. 4. Multilevel foraminal stenoses, worst at L2-L3 on the left, where there is associated L2 nerve root compression. Recommend correlation with clinical symptoms to ascertain relevance of this finding. 5. No change in bilateral adrenal nodules. Dictated by: Harpreet Miller M.D. on 02/09/2019 at 10:16 Approved by: Harpreet Miller M.D. on 02/09/2019 at 10:26
== END ==
PROVIDERS: PCP Internal Medicine; Visit Provider Internal Medicine
DX: M51.16 Intervertebral disc disorders with radiculopathy, lumbar region (principal); M47.26 Other spondylosis with radiculopathy, lumbar region; M48.061 Spinal stenosis, lumbar region without neurogenic claudication; E27.9 Disorder of adrenal gland, unspecified; E88.2 Lipomatosis, not elsewhere classified; Z98.1 Arthrodesis status
CPT/HCPCS: 72148

== ENCOUNTER 2019-05-22 19:13 | Emergency (ER) | payer MEDICARE, OTHER, SELFPAY ==
[2019-05-22 19:16] VITALS: BP 145/88; PULSE 69; RESP 24; TEMP 36.3; O2SAT 97
--- NOTE | 2019-05-22 19:17 | DI.RAD.S_ITS ---
PROCEDURE: XR CHEST 1V INDICATIONS: CP, SOB, felt pop in chest TECHNIQUE: One view of the chest was acquired. COMPARISON: [facility], CR, XR CHEST 1V, 06/21/2018, 9:14. FINDINGS: Surgical changes and devices: None. Lungs and pleura: Small left pleural effusion and left basilar infiltrate/atelectasis is seen. No gross pneumothorax. Right lung is clear. Mediastinum: Mediastinal contours appear normal. Heart size is enlarged. Bones and chest wall: No suspicious bony lesions. Overlying soft tissues appear unremarkable. IMPRESSION: Finding is suggestive of small left pleural effusion and left basilar infiltrate/atelectasis. No gross pneumothorax. Dictated by: Norbert Pena M.D. on 05/22/2019 at 19:31 Approved by: Norbert Pena M.D. on 05/22/2019 at 19:33
--- NOTE | 2019-05-22 19:31 | ED_ITS ---
HPI - Chest Pain General Chief Complaint: Chest Pain Stated Complaint: Chest pain Time Seen by Provider: 05/22/19 19:13 Source: patient and EMS Mode of arrival: EMS Limitations: no limitations History of Present Illness HPI narrative: 68F former smoker with history of lung cancer, HTN, and lymphoma presents with a sudden onset left-sided chest pain with any inspiration after she felt a pop this afternoon at about noon. She denies any fever or chills and states she is short of breath only because it hurts to breathe. She denies any nausea, vomiting or diarrhea. She recently had partial lung resection due to lung cancer at the [facility] about 3 weeks ago. She was seen and evaluated by her oncologist yesterday and otherwise had been at her baseline. She denies any other cardiac equivalent such as dizziness, weakness, lightheadedness, nausea, vomiting or profound fatigue. MD complaint: chest pain Onset (ago): hour(s) Duration: intermittent Onset: during rest Pain location: left chest Severity: severe Quality: sharp Pain radiation: none Relieving factors: nothing Exacerbating factors: inspiration and movement Context: recent surgery Related Data On Oral Contraceptives: No Home Medications Medication Instructions Recorded Confirmed amlodipine [Norvasc] 10 mg PO HS #0 04/03/12 12/24/18 diazepam [Valium] 2.5 - 5 mg PO Q8HP #0 04/03/12 12/24/18 levothyroxine 0.088 mg PO QAM #0 04/03/12 12/24/18 morphine [MS Contin] 15 mg PO QAM #0 04/03/12 12/24/18 simvastatin [Zocor] 20 mg PO HS #0 04/03/12 12/24/18 omega [id number]-fish oil [Fish Oil] 1,400 mg PO BID #0 08/05/12 12/24/18 topiramate [Topamax] 200 mg PO BID #0 08/05/12 12/24/18 [boswellia glucosamin] See Rx Instructions .ROUTE 08/10/17 12/17/18 .COMPLEX #0 aspirin 81 mg PO QDAY #0 08/10/17 12/24/18 hydromorphone [Dilaudid] 4 mg PO PRN PRN #0 08/10/17 12/24/18 losartan 50 mg PO QDAY #0 08/10/17 12/24/18 venlafaxine 150 mg PO QDAY #0 08/10/17 12/24/18 calcium citrate-vitamin D3 1,200 mg PO QDAY #0 08/12/17 12/24/18 [Citracal Regular] multivitamin [Multiple Vitamins] 1 tab PO QDAY #0 08/12/17 12/24/18 propranolol 1 cap PO QDAY 11/11/17 12/24/18 biotin See Rx Instructions .ROUTE .COMPLEX 07/21/18 12/24/18 Allergies Allergy/AdvReac Type Severity Reaction Status Date / Time latex Allergy Intermediate HIVES Verified 05/22/19 19:20 adhesive Allergy Mild HIVES Verified 05/22/19 19:20 [place] bupropion [From WELLBUTRIN] Allergy Mild Verified 05/22/19 19:20 cephalexin [From KEFLEX] Allergy Mild Verified 05/22/19 19:20 gabapentin [From NEURONTIN] Allergy Mild Verified 05/22/19 19:20 pregabalin [From LYRICA] Allergy Mild Verified 05/22/19 19:20 indomethacin [INDOMETHACIN] AdvReac Intermediate MEMORY Verified 05/22/19 19:20 ISSUES Review of Systems Constitutional Constitutional: Denies chills, Denies fatigue, Denies fever(s), Denies frequent falls, Denies lethargy and Denies weakness Eyes Eyes: Denies change in vision, Denies eye discharge, Denies irritation and Denies loss of vision ENT Ears, Nose, Mouth, and Throat: Denies change in voice, Denies dizziness, Denies neck pain, Denies sore throat and Denies throat swelling Cardiovascular Cardiovascular: Denies chest pain, Denies irregular heart rhythm, Denies lightheadedness, Denies palpitations, Denies dyspnea, Denies dyspnea on exertion and Denies orthopnea Respiratory Respiratory: Denies cough, Reports pain on inspiration, Reports pain with cough, Denies dyspnea, Denies dyspnea on exertion and Denies wheezing Gastrointestinal Gastrointestinal: Denies abdominal pain, Denies change in bowel habits, Denies diarrhea, Denies nausea and Denies vomiting Genitourinary Genitourinary: Denies hematuria, Denies flank pain, Denies urinary incontinence and Denies urinary urgency Musculoskeletal Musculoskeletal: Denies back pain, Denies muscle weakness, Denies neck pain, Denies numbness and Denies tingling Integumentary/Breasts Skin/Breast: Denies pruritus, Denies erythema, Denies rash and Denies wounds Neurologic Neurologic: Denies behavioral changes, Denies confusion, Denies dizziness, Denies frequent falls, Denies loss of vision, Denies numbness, Denies tingling and Denies weakness Psychiatric Psychiatric: Denies anxiety, Denies behavioral changes, Denies confusion, Denies depression, Denies homicidal ideation and Denies suicidal ideation Endocrine Endocrine: Denies fatigue, Denies flushing and Denies palpitations Hematologic/Lymphatic Hematologic/Lymphatic: Denies easy bruising Allergic/Immunologic Allergic/Immunologic: Denies urticaria, Denies throat swelling and Denies wheezing Patient History Medical History CVA (cerebral vascular accident) (Acute) Social History household members: spouse Smoking Status: Former smoker Smoking Status: Former smoker alcohol intake frequency: other Substance Use Type: marijuana Exam Narrative Exam Narrative: GENERAL: [68] year old patient appears stated age. Well-n ourished, well-developed patient, in mild distress. Obviously uncomfortable and clutching her left chest HEAD: Atraumatic. Normocephalic. EYES: Pupils equal round and reactive. Extraocular motions intact. No scleral icterus. No injection or drainage. ENT: Nose without bleeding, purulent drainage. Throat without erythema, tonsillar hypertrophy or exudate. Airway patent. NECK: Trachea midline. Non tender CARDIOVASCULAR: Regular rate and rhythm without murmurs, gallops, or rubs. Incision is clean, dry and intact with no evidence of swelling, infection or dehiscence RESPIRATORY: Clear to auscultation. Breath sounds equal bilaterally. No wheezes, rales, or rhonchi. GASTROINTESTINAL: Abdomen soft, non-tender, nondistended. EXTREMITIES: No edema or joint tenderness. BACK: Nontender without deformity or crepitance. No flank tenderness. NEURO: AOx3. SKIN: No rash or erythema of visible areas Initial Vital Signs Initial Vital Signs: Vital Signs Temperature 97.4 F L 05/22/19 19:16 Pulse Rate 69 05/22/19 19:16 Respiratory Rate 24 05/22/19 19:16 Blood Pressure 145/88 H 05/22/19 19:16 Pulse Oximetry 97 05/22/19 19:16 Course Orders Ordered: ED Orders 05/22/19 19:43 CT angio chest PE protocol Stat Discontinued Medications Hydromorphone HCl (Dilaudid) 1 mg IV NOW ONE Stop: 05/22/19 22:34 Last Admin: 05/22/19 22:40 Dose: 1 mg Documented by: TONYA Sodium Chloride (Normal Saline 0.9%) 1,000 mls @ 150 mls/hr IV BOLUS ONE Stop: 05/23/19 02:08 Last Infusion: 05/22/19 23:16 Dose: 0 mls/hr Documented by: Admin: 05/22/19 19:35 Dose: 150 mls/hr Documented by: DAMARIS Ketorolac Tromethamine (Toradol) 15 mg IV NOW ONE Stop: 05/22/19 22:46 Last Admin: 05/22/19 22:52 Dose: 15 mg Documented by: TONYA Consultations Consultation #1: Of discussed this case with the on-call cardiothoracic surgeon at the [facility]. After discussing her history and physical as well as labs and imaging we sure the opinion that this is a scenario that will require symptomatic treatment, close follow-up and extensive return precautions. There is nothing in the story that prompts the need for transfer or other specific intervention. Vital Signs Vital signs: Vital Signs - 8 hr 05/22/19 20:43 05/22/19 21:30 05/22/19 22:54 Pulse Rate 88 84 90 Respiratory Rate 25 H 18 19 Blood Pressure [Right Arm] 152/78 H 160/89 H 155/95 H Pulse Oximetry 88 L 92 92 MDM - Chest Pain Lab Data Result diagrams: 05/22/19 19:27 05/22/19 19:27 Labs: Lab Results 05/22/19 05/22/19 05/22/19 Range/Units 19:27 19:27 19:27 WBC 12.7 H (4.5-11.0) X10^3/uL RBC 4.12 (4.0-5.2) X10^6/uL Hgb 11.0 L (12.0-16.0) g/dL Hct 34.1 L (36-46) % MCV 82.9 (80-100) fL MCH 26.7 (26-34) PG MCHC 32.2 (30-36) % RDW 16.8 H (11.6-14.8) % Plt Count 634 H (150-400) X10^3/uL Neut % (Auto) 77.2 H (50-75) % Lymph % (Auto) 10.8 L (25-40) % [place] % (Auto) 6.4 (3-14) % Eos % (Auto) 4.3 H (2-4) % Baso % (Auto) 1.3 (0-2) % Neut # (Auto) 9800 H (3865-5094) /uL Lymph # (Auto) 1400 (2602-8564) /uL [place] # (Auto) 800 (0-900) /uL Eos # (Auto) 500 H (0-450) /uL Baso # (Auto) 200 H (0-100) /uL PT 10.3 (10.1-12.7) SECONDS INR 0.9 (0.9-1.3) Sodium 141 (137-145) mmol/L Potassium 3.3 L (3.4-5.1) mmol/L Chloride 108 H (98-107) mmol/L Carbon Dioxide 25 (22-32) mmol/L BUN 13 (7-17) mg/dL Creatinine 1.00 (0.52-1.04) mg/dL Estimated GFR 55.3 L (>60) mL/min BUN/Creatinine Ratio 13.0 (6-22) Glucose 135 H (80-110) mg/dL Calcium 8.8 (8.4-10.2) mg/dL Total Creatine Kinase 124 (30-135) U/L CK-MB (CK-2) 4.87 H (<2.37) ng/mL CK-MB (CK-2) Rel Index 3.9 (1.5-5.0) % Troponin I < 0.012 (0.01-0.034) ng/mL MDM Narrative Medical decision making narrative: Patient with extensive medical history and recent thoracotomy and lobectomy presents with sudden onset left chest pain which is sharp and stabbing and in the absence of many other symptoms. Extensi ve evaluation rules out multiple significant diagnoses such as pneumothorax, cardiac ischemia, pulmonary contusion, hematoma or other postoperative complications. Patient given return precautions and had questions answered to her apparent satisfaction Critical Care Time Critical Care Time Critical Care Time: Yes Total Critical Care Time: 30 Attestation: The high probability of a clinically significant, sudden or life threatening deterioration of the [CV] system(s) required my full and direct attention, intervention and personal management. The aggregate critical care time was [30] minutes. This time is in addition to time spent performing reported procedures but includes the following: [x] Data Review and interpretation [x] Patient assessment and monitoring of vital signs [x] Documentation [x] Medication orders and management Discharge Plan Departure Patient Disposition: Home Clinical Impression: Atypical chest pain Discharge Date/Time: 05/22/19 23:15 Instructions: DI for Atypical Chest Pain Activity Restrictions/Additional Instructions: *You have been diagnosed with [ atypical chest pain ] *What to do: *Take medications as directed *Follow up with your primary care provider in 2-3 days, call for an appo intment. Let them know you were seen in the Emergency Department and that we ask that you be seen in follow up. Call your doctors at on Friday to let them know you were here. *Return to ER if you should have any new, worsening or concerning symptoms Prescriptions: No Action morphine [MS Contin] 30 MG tablet extended release 15 mg PO QAM Qty: 0 RF: 0 levothyroxine 88 MCG tablet 0.088 mg PO QAM Qty: 0 RF: 0 simvastatin [Zocor] 20 MG tablet 20 mg PO HS Qty: 0 RF: 0 amlodipine [Norvasc] 10 MG tablet 10 mg PO HS Qty: 0 RF: 0 diazepam [Valium] 5 MG tablet 2.5 - 5 mg PO Q8HP Qty: 0 RF: 0 topiramate [Topamax] 100 MG tablet 200 mg PO BID Qty: 0 RF: 0 omega 1-jnn-nkt-fish oil [Fish Oil] 1,000 mg (120 mg-180 mg) Capsule 1,400 mg PO BID Qty: 0 RF: 0 aspirin 81 MG tablet,chewable 81 mg PO QDAY Qty: 0 RF: 0 [boswellia glucosamin] See Rx Instructions .ROUTE .COMPLEX Qty: 0 RF: 0 losartan 50 MG tablet 50 mg PO QDAY Qty: 0 RF: 0 hydromorphone [Dilaudid] 4 MG tablet 4 mg PO PRN PRN (Reason: Pain (Scale Score 7-10)) Qty: 0 RF: 0 venlafaxine 150 MG capsule,extended release 24hr 150 mg PO QDAY Qty: 0 RF: 0 calcium citrate-vitamin D3 [Citracal Regular] 250 mg calcium- 200 unit Tablet 1,200 mg PO QDAY Qty: 0 RF: 0 multivitamin [Multiple Vitamins] 1 EACH tablet 1 tab PO QDAY Qty: 0 RF: 0 propranolol 120 MG capsule,extended release 24 hr 1 cap PO QDAY RF: 0 biotin 5 mg Capsule See Rx Instructions .ROUTE .COMPLEX RF: 0 Referrals: Ce Contreras MD [Primary Care Provider] -
[2019-05-22 19:33] LABS: Add Manual Diff / Slide Review NO; Basophils Absolute Auto 200 /uL (0-100); Basophils Percent Auto 1.3 % (0-2); Eosinophils Absolute Auto 500 /uL (0-450); Eosinophils Percent Auto 4.3 % (2-4); Hematocrit 34.1 % (36-46); Lymphocytes Absolute Auto 1400 /uL (1100-4500); Lymphocytes Percent Auto 10.8 % (25-40); Mean Corpuscular HGB Conc 32.2 % (30-36); Mean Corpuscular Hemoglobin 26.7 PG (26-34); Mean Corpuscular Volume 82.9 fL (80-100); Monocytes Absolute Auto 800 /uL (0-900); Monocytes Percent Auto 6.4 % (3-14); Neutrophils Absolute Auto 9800 /uL (1500-7000); Neutrophils Percent Auto 77.2 % (50-75); Platelet Count 634 X10^3/uL (150-400); Red Blood Cell Count 4.12 X10^6/uL (4.0-5.2); Red Cell Distribution Width 16.8 % (11.6-14.8); White Blood Cell Count 12.7 X10^3/uL (4.5-11.0)
[2019-05-22] MEDS: SODIUM CHLORIDE 0.9% 1,000 ML 150 ML IV (19:35)
[2019-05-22] MEDS: HYDROMORPHONE 1 MG INJ (19:36)
[2019-05-22] MEDS: ONDANSETRON 4 MG/2 ML INJ (19:36)
--- NOTE | 2019-05-22 19:43 | DI.CT.S_ITS ---
PROCEDURE: CT ANGIO CHEST PE PROTOCOL INDICATIONS: CP, recent surgery, history of cancer, pleuritic TECHNIQUE: After the administration of intravenous contrast, 2 mm thick sections acquired from the pulmonary apices to the posterior costophrenic angles. 3-dimensional maximum intensity projection (MIP) coronal and sagittal reformats were then acquired through the thorax. For radiation dose reduction, the following was used: automated exposure control, adjustment of mA and/or kV according to patient size. COMPARISON: [facility], CT, CT CHEST ABD PEL W CON, 01/05/2019, 12:13. [facility], NM, NM PET CT FUSION SKULL 2 THIGH, 02/03/2019, 18:04. FINDINGS: Image quality: Excellent. Pulmonary arteries: Pulmonary arteries are normal in size, and demonstrate no intraluminal filling defects to suggest central pulmonary embolism. Lungs and pleura: There is a moderate sized at least partially left pleural effusion with compressive atelectasis in left upper and lower lobes. Hazy groundglass opacities are seen throughout bilateral aerated lung box suggestive of pulmonary edema versus pneumonitis. No definite discrete pulmonary nodule is noted on the current study. No pneumothorax. No right-sided pleural effusion. Chronic emphysematous changes are seen. Central and peripheral airway is patent. Mediastinum: Heart size is normal, with small pericardial effusion. A few small pockets of air are seen in anterior superior mediastinum measures up to 9 mm in size and likely represent post procedural changes. Excessive mediastinal and hilar soft tissue fullness is seen suggestive of lymphadenopathy.. Thoracic aorta is normal in caliber and enhancement. Esophagus is normal in caliber, with a small hiatal hernia. Bones and chest wall: No suspicious bony lesions. Ribs and thoracic spine appear intact throughout. Thyroid gland is within normal limits. No axillary or supraclavicular adenopathy. Abdomen: Visualized upper abdominal solid organs appear normal in the early arterial phase of enhancement. Extensive bilateral hypodense adrenal nodules are not significantly changed in size and appearance from prior studies. IMPRESSION: 1. Moderate-sized partially loculated left pleural effusion with left lung atelectasis. No significant right-sided pleural effusion. Centrilobular emphysema. Hazy groundglass opacities scattered throughout bilateral lung box concerning for pulmonary edema versus pneumonitis. No pneumothorax. 2. Extensive mediastinal and hilar lymphadenopathy. Small pockets of air seen in superior mediastinum, likely represent iatrogenic air from recent chest procedure. 3. Cardiomegaly and small amount of pericardial effusion. 4. Small hiatal hernia. Stable appearing bilateral adrenal gland hypodense nodules. 5. No evidence of pulmonary emboli. No thoracic aortic dissection or aneurysm. Dictated by: Norbert Pena M.D. on 05/22/2019 at 20:44 Approved by: Norbert Pena M.D. on 05/22/2019 at 21:02
[2019-05-22 19:44] LABS: INR 0.9 (0.9-1.3); Prothrombin Time 10.3 SECONDS (10.1-12.7)
[2019-05-22 19:49] LABS: Blood Urea Nitrogen 13 mg/dL (7-17); Calcium 8.8 mg/dL (8.4-10.2); Carbon Dioxide 25 mmol/L (22-32); Chloride 108 mmol/L (98-107); Creatine Kinase 124 U/L (30-135); Estimated Glomerular Filt Rate 55.3 mL/min (>60); Glucose 135 mg/dL (80-110); HEMOLYSIS < 15 (0-50); Potassium 3.3 mmol/L (3.4-5.1); Sodium 141 mmol/L (137-145)
[2019-05-22 20:00] LABS: Troponin I < 0.012 ng/mL (0.01-0.034)
[2019-05-22 20:03] LABS: CKMB % Relative Index 3.9 % (1.5-5.0); Creatine Kinase MB 4.87 ng/mL (<2.37)
[2019-05-22 20:43] VITALS: BP 152/78; PULSE 88; RESP 25; O2SAT 88
[2019-05-22 21:30] VITALS: BP 160/89; PULSE 84; RESP 18; O2SAT 92
[2019-05-22] MEDS: HYDROMORPHONE 1 MG INJ IV (22:40)
[2019-05-22] MEDS: KETOROLAC 60 MG/2 ML VIAL 15 MG IV (22:52)
[2019-05-22 22:54] VITALS: BP 155/95; PULSE 90; RESP 19; O2SAT 92
== END 2019-05-22 23:15 | disposition home or self-care (01) ==
PROVIDERS: Emergency Provider Emergency Medicine; PCP Internal Medicine
DX: R07.89 Other chest pain (principal); C34.90 Malignant neoplasm of unspecified part of unspecified bronchus or lung; Z98.890 Other specified postprocedural states
CPT/HCPCS: 36415; 71045; 71275; 80048; 82550; 82553; 84484; 85025; 85610; 96361; 96374; 96375; 96376; 99284; 99291; J1170; J1885; J2405

== ENCOUNTER 2020-02-02 09:54 | Emergency (ER) | payer MEDICARE, OTHER, SELFPAY ==
[2020-02-02] VITALS (11 sets, daily range): BP systolic 115–148; BP diastolic 64–77; PULSE 84–89; RESP 14–18; TEMP 36.6; O2SAT 93–100; BMI 20.9
[2020-02-02 10:22] LABS: Bacteria Urine None Seen
[2020-02-02 10:32] LABS: Appearance Urine UA CLOUDY; Bilirubin Urine UA NEGATIVE (NEGATIVE); Color Urine UA RED; Glucose Urine UA NEGATIVE (Negative); Ketones Urine UA NEGATIVE (NEGATIVE); Leukocyte Esterase Urine UA 1+ (NEGATIVE); Nitrite Urine UA NEGATIVE (Negative); Occult Blood Urine UA 3+ (Negative); Protein Urine UA 2+ (Negative); Specific Gravity Urine UA 1.015 (1.000-1.035); Urobilinogen Urine UA 0.2 E.U./dL (0.2); pH Urine UA 5.5 (4.5-8.0)
[2020-02-02 10:33] LABS: Culture Indicated Urine Specimen Cultured; RBC Urine >100/HPF (0-5/HPF); WBC Urine >100/HPF (0-5/HPF)
[2020-02-02 11:11] LABS: Add Manual Diff / Slide Review NO; Basophils Absolute Auto 200 /uL (0-100); Basophils Percent Auto 1.2 % (0-2); Eosinophils Absolute Auto 200 /uL (0-450); Hematocrit 42.5 % (36-46); Lymphocytes Absolute Auto 700 /uL (1100-4500); Lymphocytes Percent Auto 4.4 % (25-40); Mean Corpuscular Hemoglobin 31.4 PG (26-34); Mean Corpuscular Volume 95.2 fL (80-100); Monocytes Absolute Auto 1700 /uL (0-900); Monocytes Percent Auto 11.1 % (3-14); Neutrophils Absolute Auto 12700 /uL (1500-7000); Neutrophils Percent Auto 82.3 % (50-75); Platelet Count 510 X10^3/uL (150-400); Red Blood Cell Count 4.46 X10^6/uL (4.0-5.2); Red Cell Distribution Width 14.1 % (11.6-14.8); White Blood Cell Count 15.5 X10^3/uL (4.5-11.0)
[2020-02-02 11:19] LABS: Alanine Aminotransferase 61 IU/L (<35); Alkaline Phosphatase 126 U/L (38-126); Aspartate Aminotransferase 41 IU/L (14-36); BUN Creatinine Ratio 21.9 (6-22); Bilirubin Total 0.5 mg/dL (0.2-1.3); Blood Urea Nitrogen 60 mg/dL (7-17); Calcium 9.4 mg/dL (8.4-10.2); Carbon Dioxide 24 mmol/L (22-32); Chloride 99 mmol/L (98-107); Estimated Glomerular Filt Rate 17.2 mL/min (>60); Globulin 4.2 g/dL (1.7-4.1); Glucose 128 mg/dL (80-110); HEMOLYSIS 19 (0-50); Potassium 4.5 mmol/L (3.4-5.1); Sodium 135 mmol/L (137-145); Total Protein 8.2 g/dL (6.3-8.2)
--- NOTE | 2020-02-02 11:23 | PC.NURSE ---
Pt is very sleepy but rouses w/ general stimulation. States she is tired. Laying in position of comfort. Denies needs at this time. Records requested from [facility] and PCP office.
--- NOTE | 2020-02-02 11:25 | ED.FEMALEGU ---
HPI - Female Genitourinary <Joy Smalls PA-C - Last Filed: 02/02/20 21:59> General Chief complaint: Urogenital-Female Stated complaint: Thinks she had a stroke last Friday Time Seen by Provider: 02/02/20 10:59 Source: patient Mode of arrival: Wheelchair History of Present Illness HPI Narrative: This is a 69-year-old woman with a history of lung cancer, [place] lymphoma not actively being treated, HTN, renal failure, thrombocytosis, former smoker, abdominal hernia, and NSTEMI who presents to the emergency department complaining of increased fatigue, blood in her urine, generalized confusion and slow thinking, new flank pain on the right, abdominal pain, nausea today, balance issues. She states that on Friday of last week she was feeling more tired than usual and since that time she has been sleeping a lot alternating between sleeping and getting up and cleaning things obsessiveley and intensely, she says that she has been seeing people such as her or family members in her peripheral vision and when she turns to look, there is no one there. She says she has also been hearing very loud noises is is but there does not seem to be anything making the noises. She notes she has never had this experience before. She says that she has chronic back pain but she has new bad pain on the right side flank in the back, she says her last bowel movement was about ?2 and half days ago but it was very small couple little pellets.She says she is normally regular and goes every day. She has had abdominal surgery for an appendicitis. She has a hernia on the left side of her belly that she says ?they are not going to do anything about because all the other staff that is going on which only hurts ?if you press on it hard. She generally says that she does not eat very much and is not great a drinking fluids although in the last few days she has had no appetite and has had to try to force herself to eat. She thinks she has had some mild subjective fevers but denies any chills. Complaint: dysuria and other (fatigue, blood in urine, spacy) Onset (ago): day(s) (6) Location: other (RUQ, RLQ) Female Urogenital Radiation: R Flank Severity: moderate Severity scale (1-10): 4 Quality: Dull and Sharp (Abd pain is sharp, flank pain dull) Duration: constant and intermittent (Abd pain is not constant, flank/back pain is constant) Relieving factors: none Exacerbating factors: none Urinary symptoms: Flank Pain and Hematuria Related Data Home Medications Medication Instructions Recorded Confirmed amlodipine [Norvasc] 10 mg PO HS #0 04/03/12 02/02/20 diazepam [Valium] 2.5 - 5 mg PO Q8HP PRN #0 04/03/12 02/02/20 levothyroxine 0.088 mg PO QAM #0 04/03/12 02/02/20 morphine [MS Contin] 15 mg PO QAM #0 04/03/12 02/02/20 simvastatin [Zocor] 20 mg PO HS #0 04/03/12 02/02/20 omega 7-uvd-ndw-fish oil [Fish Oil] 1,400 mg PO BID #0 08/05/12 02/02/20 topiramate [Topamax] 200 mg PO BID #0 08/05/12 02/02/20 [boswellia glucosamin] See Rx Instructions .ROUTE 08/10/17 02/02/20 .COMPLEX #0 aspirin 81 mg PO QDAY #0 08/10/17 02/02/20 losartan 50 mg PO QDAY #0 08/10/17 02/02/20 venlafaxine 150 mg PO QDAY #0 08/10/17 02/02/20 calcium citrate-vitamin D3 1,200 mg PO QDAY #0 08/12/17 02/02/20 [Citracal Regular] multivitamin [Multiple Vitamins] 1 tab PO QDAY #0 08/12/17 02/02/20 propranolol 1 cap PO QDAY 11/11/17 02/02/20 biotin 10 mg PO DAILY 07/21/18 02/02/20 hydrocodone-acetaminophen 1 tab PO TID PRN 02/02/20 02/02/20 Allergies Allergy/AdvReac Type Severity Reaction Status Date / Time latex Allergy Intermediate HIVES Verified 02/02/20 11:11 adhesive Allergy Mild HIVES Verified 02/02/20 11:11 CLOTH [place]AN[place] bupropion [From WELLBUTRIN] Allergy Mild Verified 02/02/20 11:11 cephalexin [From KEFLEX] Allergy Mild Verified 02/02/20 11:11 gabapentin [From NEURONTIN] Allergy Mild Verified 02/02/20 11:11 pregabalin [From LYRICA] Allergy Mild Verified 02/02/20 11:11 indomethacin [INDOMETHACIN] AdvReac Intermediate MEMORY Verified 02/02/20 11:11 ISSUES Review of Systems <Joy Smalls PA-C - Last Filed: 02/02/20 21:59> Review of Systems Narrative: GENERAL: Denies chills, fatigue, malaise, positive for fever, negative for sweats. HEENT: Denies sinus pain, ear pain, sore throat, difficulty swallowing, dizziness. RESPIRATORY: Denies dyspnea, cough, wheezing, hemoptysis, sputum. CARDIOVASCULAR: Denies chest pain, palpitations, orthopnea, edema, GASTROINTESTINAL: Positive for nausea today, negative for vomiting, positive for abdominal pain, negative for diarrhea, positive for constipation, negative for melena. : Denies dysuria, frequency, incontinence, hematuria, urinary retention. MUSCULOSKELETAL: Positive for generalized weakness, negative for joint pain, or bony pain SKIN: Denies rash, skin lesions, or other NEUROLOGIC: Positive for general weakness, positive for headache last Friday that has resolved, negative for numbness, change in speech, positive for confusion compared to her baseline per her , ?spacey? per patient, negative for seizures, negative for incoordination. PSYCHIATRIC: Patient endorses hearing loud noises that do not have a cause, also endorses alternately sleeping for long periods and then being very active in cleaning things, also endorses seeing people in her peripheral vision turning to look and then they are not there, endorses no history of similar. No other concerning psychosocial issues. 12 point review of systems is negative except for those stated above Patient History <Joy Smalls PA-C - Last Filed: 02/02/20 21:59> Medical History CVA (cerebral vascular accident) (Acute) alcohol intake frequency: other Substance Use Type: marijuana Exam <Joy Smalls PA-C - Last Filed: 02/02/20 21:59> Narrative Exam Narrative: GENERAL: 69 year old patient appears stated age. Slim, well-developed patient, in mild distress, her speech is slightly delayed, difficulty gathering her thoughts, is able to answer questions appropriately. HEAD: Atraumatic. Normocephalic. EYES: Pupils equal round and reactive. Extraocular motions intact. No scleral icterus. No injection or drainage. ENT: Nose without bleeding, purulent drainage. Throat without erythema, tonsillar hypertrophy or exudate. Airway patent. NECK: Trachea midline. Non tender CARDIOVASCULAR: Regular rate and rhythm without murmurs, gallops, or rubs. RESPIRATORY: Clear to auscultation. Breath sounds equal bilaterally. No wheezes, rales, or rhonchi. GASTROINTESTINAL: Abdomen tender in the right upper quadrant and right lower quadrant, no epigastric tenderness, nondistended, there is a palpable mass consistent with a hernia containing small bowel on her left lateral abdomen/flank, it is without tenderness. EXTREMITIES: No edema or joint tenderness. BACK: Nontender without deformity or crepitance. Right flank tenderness, negative left flank tenderness. NEURO: AOx3. Cranial nerves are intact, strength is reduced bilaterally upper and lower extremities, 3/5 sensation is intact. Coordination is intact. Negative arm drift. SKIN: No rash or erythema of visible areas Initial Vital Signs Initial Vital Signs: Vital Signs Temperature 97.9 F 02/02/20 10:00 Pulse Rate 88 02/02/20 10:00 Respiratory Rate 14 02/02/20 10:00 Blood Pressure 135/77 02/02/20 10:00 Pulse Oximetry 100 02/02/20 10:00 <Lacey Mercado MD - Last Filed: 02/08/20 07:31> Initial Vital Signs Initial Vital Signs: Vital Signs Temperature 97.9 F 02/02/20 10:00 Pulse Rate 88 02/02/20 10:00 Respiratory Rate 14 02/02/20 10:00 Blood Pressure 135/77 02/02/20 10:00 Pulse Oximetry 100 02/02/20 10:00 Scores <Joy Smalls PA-C - Last Filed: 02/02/20 21:59> GCS Register coma scale eye opening: Spontaneous Register coma scale verbal response: Orientated Deisy coma scale motor response: Obey commands Register coma scale total score: 15 Course <Joy Smalls PA-C - Last Filed: 02/02/20 21:59> Course Course Narrative: Given the patient's presentation, workup for sepsis, also possible concern for metastasis affecting her brain, SHAYNA. Discussed this patient with Dr. Mercado who advises she will not be a candidate to be admitted here given her kidney failure, advising she be transferred to facility where she usually gets her care. She she also reviewed the patient's labs and history. We are still awaiting records from [facility] where she gets her cancer care. 1206 Attempted to find the patient's in the lobby however he was not there, to discuss the plan and where she normally gets her care as well as her recent symptoms from his perspective. 1237 Radiology call to report that this patient has a 6 mm stone the right UPJ which is causing hydronephrosis. 1 mm stone also noted that the renal pelvis. Difficult to tell without contrast but he also thinks there may be some thickening of the cecum wall which may correlate with an elevated white count. 1318 Attempted to work on transfer this patient to [facility] however they have a 4-5 hour wait for for beds. Spoke with Dr. Mercado again and we are consulting Dr. Ho, to see if he would consider putting a stent and may consider contacting Dr. Rizo to see if she would consider admitting this patient to the floor here for further management. [address] Vera at [facility], she says she is happy to take this patient they will admit her to general medicine floor, calling back with a bed assignment shortly. 1422 Orders Ordered: Discontinued Medications Sodium Chloride (Normal Saline 0.9%) 1,000 mls @ 1,000 mls/hr IV BOLUS ONE Stop: 02/02/20 12:31 Last Infusion: 02/02/20 13:29 Dose: 0 mls/hr Documented by: Admin: 02/02/20 11:36 Dose: 1,000 mls/hr Documented by: DAMARIS Sodium Chloride (Normal Saline 0.9%) 1,000 mls @ 1,000 mls/hr IV BOLUS PRN PRN Reason: Fluid replacement Piperacillin/Tazobactam/Dextrose (Zosyn) 2.25 gm in 50 mls @ 100 mls/hr IV NOW ONE Stop: 02/02/20 12:44 Last Infusion: 02/02/20 13:29 Dose: 0 mls/hr Documented by: Admin: 02/02/20 12:39 Dose: 100 mls/hr Documented by: DAMARIS Sodium Chloride (Normal Saline 0.9%) 1,000 mls @ 150 mls/hr IV BOLUS ONE Stop: 02/02/20 18:59 Last Infusion: 02/02/20 15:23 Dose: 0 mls/hr Documented by: Infusion: 02/02/20 14:25 Dose: 150 mls/hr Documented by: Admin: 02/02/20 12:39 Dose: 500 mls/hr Documented by: DAMARIS Vital Signs Vital signs: Vital Signs - 8 hr 02/02/20 14:00 02/02/20 15:12 Pulse Rate 85 Respiratory Rate 18 Blood Pressure 148/72 H 143/77 H Pulse Oximetry 98 <Lacey Mercado MD - Last Filed: 02/08/20 07:31> Orders Ordered: Discontinued Medications Sodium Chloride (Normal Saline 0.9%) 1,000 mls @ 1,000 mls/hr IV BOLUS ONE Stop: 02/02/20 12:31 Last Infusion: 02/02/20 13:29 Dose: 0 mls/hr Documented by: Admin: 02/02/20 11:36 Dose: 1,000 mls/hr Documented by: DAMARIS Sodium Chloride (Normal Saline 0.9%) 1,000 mls @ 1,000 mls/hr IV BOLUS PRN PRN Reason: Fluid replacement Piperacillin/Tazobactam/Dextrose (Zosyn) 2.25 gm in 50 mls @ 100 mls/hr IV NOW ONE Stop: 02/02/20 12:44 Last Infusion: 02/02/20 13:29 Dose: 0 mls/hr Documented by: Admin: 02/02/20 12:39 Dose: 100 mls/hr Documented by: DAMARIS Sodium Chloride (Normal Saline 0.9%) 1,000 mls @ 150 mls/hr IV BOLUS ONE Stop: 02/02/20 18:59 Last Infusion: 02/02/20 15:23 Dose: 0 mls/hr Documented by: Infusion: 02/02/20 14:25 Dose: 150 mls/hr Documented by: Admin: 02/02/20 12:39 Dose: 500 mls/hr Documented by: DAMARIS Vital Signs Vital signs: Vital Signs - 8 hr 02/02/20 14:00 02/02/20 15:12 Pulse Rate 85 Respiratory Rate 18 Blood Pressure 148/72 H 143/77 H Pulse Oximetry 98 MDM - Female Genitourinary <Joy Smalls PA-C - Last Filed: 02/02/20 21:59> Differential Diagnosis Differential diagnosis: Likely cystitis and other (Ureterolithiasis, hydronephrosis, SHAYNA, sepsis) Medical Records Attestation: I reviewed the patient's medical records. Medical records narrative: await records from , reviewed records from [facility] Lab Data Attestation: I reviewed the patient's lab results. Result diagrams: 02/02/20 10:30 02/02/20 10:30 Labs: Lab Results 02/02/20 02/02/20 02/02/20 Range/Units 10:10 10:30 10:30 WBC 15.5 H (4.5-11.0) X10^3/uL RBC 4.46 (4.0-5.2) X10^6/uL Hgb 14.0 (12.0-16.0) g/dL Hct 42.5 (36-46) % MCV 95.2 (80-100) fL MCH 31.4 (26-34) PG MCHC 33.0 (30-36) % RDW 14.1 (11.6-14.8) % Plt Count 510 H (150-400) X10^3/uL Neut % (Auto) 82.3 H (50-75) % Lymph % (Auto) 4.4 L (25-40) % Nance % (Auto) 11.1 (3-14) % Eos % (Auto) 1.0 L (2-4) % Baso % (Auto) 1.2 (0-2) % Neut # (Auto) 77515 H (3747-3618) /uL Lymph # (Auto) 700 L (6823-9571) /uL Nance # (Auto) 1700 H (0-900) /uL Eos # (Auto) 200 (0-450) /uL Baso # (Auto) 200 H (0-100) /uL PT (10.1-12.7) SECONDS INR (0.9-1.3) APTT (26.4-36.2) SECONDS Sodium 135 L (137-145) mmol/L Potassium 4.5 (3.4-5.1) mmol/L Chloride 99 (98-107) mmol/L Carbon Dioxide 24 (22-32) mmol/L BUN 60 H (7-17) mg/dL Creatinine 2.74 H (0.52-1.04) mg/dL Estimated GFR 17.2 L (>60) mL/min BUN/Creatinine Ratio 21.9 (6-22) Glucose 128 H (80-110) mg/dL Lactate (0.7-2.1) mmol/L Calcium 9.4 (8.4-10.2) mg/dL Total Bilirubin 0.5 (0.2-1.3) mg/dL AST 41 H (14-36) IU/L ALT 61 H (<35) IU/L Alkaline Phosphatase 126 (38-126) U/L Ammonia (9-30) umol/L Total Protein 8.2 (6.3-8.2) g/dL Albumin 4.0 (3.5-5.0) g/dL Globulin 4.2 H (1.7-4.1) g/dL Albumin/Globulin Ratio 1.0 (1.0-2.8) Lipase (23-300) U/L Procalcitonin (<0.5) ng/mL Urine Color Red Urine Appearance Cloudy Urine pH 5.5 (4.5-8.0) Ur Specific Bend 1.015 (1.000-1.035) Urine Protein 2+ H (Negative) Urine Glucose (UA) Negative (Negative) g/dL Urine Ketones Negative (NEGATIVE) Urine Occult Blood 3+ H (Negative) Urine Nitrate Negative (Negative) Urine Bilirubin Negative (NEGATIVE) Urine Urobilinogen 0.2 (0.2) E.U./dL Ur Leukocyte Esterase 1+ H (NEGATIVE) Urine RBC >100/hpf H (0-5/HPF) Urine WBC >100/hpf H (0-5/HPF) Urine Bacteria None seen (None) Ur Culture Indicated? Specimen cultured A. baumannii (PCR) Shefali albicans (PCR) C. glabrata (PCR) C. krusei (PCR) C. parapsilosis (PCR) C. tropicalis (PCR) COVID-19 PCR (Negative) Enterobacteriac sp PCR E. cloacae complex PCR Enterococcus sp PCR E. coli (PCR) H. influenzae (PCR) Klebsiella oxytoca PCR Klebsiella pneumoniae List. monocytogenes PCR N. meningitidis (PCR) Proteus species (PCR) Serratia marcescens PCR Staphylococcus sp PCR Staph aureus (PCR) mecA-Methicil Res Gene Streptococcus sp PCR Group A Strep (PCR) Strep agalactiae (PCR) Strep pneumoniae (PCR) P. aeruginosa (PCR) Rosendo/B-Vanco Res Genes KPC-Carbap Res Gene PCR 02/02/20 02/02/20 02/02/20 Range/Units 11:44 11:44 11:44 WBC (4.5-11.0) X10^3/uL RBC (4.0-5.2) X10^6/uL Hgb (12.0-16.0) g/dL Hct (36-46) % MCV (80-100) fL MCH (26-34) PG MCHC (30-36) % RDW (11.6-14.8) % Plt Count (150-400) X10^3/uL Neut % (Auto) (50-75) % Lymph % (Auto) (25-40) % Nance % (Auto) (3-14) % Eos % (Auto) (2-4) % Baso % (Auto) (0-2) % Neut # (Auto) (5683-9400) /uL Lymph # (Auto) (8819-2302) /uL Nance # (Auto) (0-900) /uL Eos # (Auto) (0-450) /uL Baso # (Auto) (0-100) /uL PT 10.7 (10.1-12.7) SECONDS INR 0.9 (0.9-1.3) APTT 31 (26.4-36.2) SECONDS Sodium (137-145) mmol/L Potassium (3.4-5.1) mmol/L Chloride (98-107) mmol/L Carbon Dioxide (22-32) mmol/L BUN (7-17) mg/dL Creatinine (0.52-1.04) mg/dL Estimated GFR (>60) mL/min BUN/Creatinine Ratio (6-22) Glucose (80-110) mg/dL Lactate 0.5 L (0.7-2.1) mmol/L Calcium (8.4-10.2) mg/dL Total Bilirubin (0.2-1.3) mg/dL AST (14-36) IU/L ALT (<35) IU/L Alkaline Phosphatase (38-126) U/L Ammonia (9-30) umol/L Total Protein (6.3-8.2) g/dL Albumin (3.5-5.0) g/dL Globulin (1.7-4.1) g/dL Albumin/Globulin Ratio (1.0-2.8) Lipase (23-300) U/L Procalcitonin 0.32 (<0.5) ng/mL Urine Color Urine Appearance Urine pH (4.5-8.0) Ur Specific Bend (1.000-1.035) Urine Protein (Negative) Urine Glucose (UA) (Negative) g/dL Urine Ketones (NEGATIVE) Urine Occult Blood (Negative) Urine Nitrate (Negative) Urine Bilirubin (NEGATIVE) Urine Urobilinogen (0.2) E.U./dL Ur Leukocyte Esterase (NEGATIVE) Urine RBC (0-5/HPF) Urine WBC (0-5/HPF) Urine Bacteria (None) Ur Culture Indicated? A. baumannii (PCR) Shefali albicans (PCR) C. glabrata (PCR) C. krusei (PCR) C. parapsilosis (PCR) C. tropicalis (PCR) COVID-19 PCR (Negative) Enterobacteriac sp PCR E. cloacae complex PCR Enterococcus sp PCR E. coli (PCR) H. influenzae (PCR) Klebsiella oxytoca PCR Klebsiella pneumoniae List. monocytogenes PCR N. meningitidis (PCR) Proteus species (PCR) Serratia marcescens PCR Staphylococcus sp PCR Staph aureus (PCR) mecA-Methicil Res Gene Streptococcus sp PCR Group A Strep (PCR) Strep agalactiae (PCR) Strep pneumoniae (PCR) P. aeruginosa (PCR) Rosendo/B-Vanco Res Genes KPC-Carbap Res Gene PCR 02/02/20 02/02/20 02/02/20 Range/Units 11:44 11:44 11:55 WBC (4.5-11.0) X10^3/uL RBC (4.0-5.2) X10^6/uL Hgb (12.0-16.0) g/dL Hct (36-46) % MCV (80-100) fL MCH (26-34) PG MCHC (30-36) % RDW (11.6-14.8) % Plt Count (150-400) X10^3/uL Neut % (Auto) (50-75) % Lymph % (Auto) (25-40) % Nance % (Auto) (3-14) % Eos % (Auto) (2-4) % Baso % (Auto) (0-2) % Neut # (Auto) (6092-5126) /uL Lymph # (Auto) (9223-5912) /uL Nance # (Auto) (0-900) /uL Eos # (Auto) (0-450) /uL Baso # (Auto) (0-100) /uL PT (10.1-12.7) SECONDS INR (0.9-1.3) APTT (26.4-36.2) SECONDS Sodium (137-145) mmol/L Potassium (3.4-5.1) mmol/L Chloride (98-107) mmol/L Carbon Dioxide (22-32) mmol/L BUN (7-17) mg/dL Creatinine (0.52-1.04) mg/dL Estimated GFR (>60) mL/min BUN/Creatinine Ratio (6-22) Glucose (80-110) mg/dL Lactate (0.7-2.1) mmol/L Calcium (8.4-10.2) mg/dL Total Bilirubin (0.2-1.3) mg/dL AST (14-36) IU/L ALT (<35) IU/L Alkaline Phosphatase (38-126) U/L Ammonia 13 (9-30) umol/L Total Protein (6.3-8.2) g/dL Albumin (3.5-5.0) g/dL Globulin (1.7-4.1) g/dL Albumin/Globulin Ratio (1.0-2.8) Lipase 87 (23-300) U/L Procalcitonin (<0.5) ng/mL Urine Color Urine Appearance Urine pH (4.5-8.0) Ur Specific Bend (1.000-1.035) Urine Protein (Negative) Urine Glucose (UA) (Negative) g/dL Urine Ketones (NEGATIVE) Urine Occult Blood (Negative) Urine Nitrate (Negative) Urine Bilirubin (NEGATIVE) Urine Urobilinogen (0.2) E.U./dL Ur Leukocyte Esterase (NEGATIVE) Urine RBC (0-5/HPF) Urine WBC (0-5/HPF) Urine Bacteria (None) Ur Culture Indicated? A. baumannii (PCR) Cancelled Shefali albicans (PCR) Cancelled C. glabrata (PCR) Cancelled C. krusei (PCR) Cancelled C. parapsilosis (PCR) Cancelled C. tropicalis (PCR) Cancelled COVID-19 PCR (Negative) Enterobacteriac sp PCR Cancelled E. cloacae complex PCR Cancelled Enterococcus sp PCR Cancelled E. coli (PCR) Cancelled H. influenzae (PCR) Cancelled Klebsiella oxytoca PCR Cancelled Klebsiella pneumoniae Cancelled List. monocytogenes PCR Cancelled N. meningitidis (PCR) Cancelled Proteus species (PCR) Cancelled Serratia marcescens PCR Cancelled Staphylococcus sp PCR Cancelled Staph aureus (PCR) Cancelled mecA-Methicil Res Gene Cancelled Streptococcus sp PCR Cancelled Group A Strep (PCR) Cancelled Strep agalactiae (PCR) Cancelled Strep pneumoniae (PCR) Cancelled P. aeruginosa (PCR) Cancelled Rosendo/B-Vanco Res Genes Cancelled KPC-Carbap Res Gene PCR Cancelled 02/02/20 Range/Units 11:55 WBC (4.5-11.0) X10^3/uL RBC (4.0-5.2) X10^6/uL Hgb (12.0-16.0) g/dL Hct (36-46) % MCV (80-100) fL MCH (26-34) PG MCHC (30-36) % RDW (11.6-14.8) % Plt Count (150-400) X10^3/uL Neut % (Auto) (50-75) % Lymph % (Auto) (25-40) % Nance % (Auto) (3-14) % Eos % (Auto) (2-4) % Baso % (Auto) (0-2) % Neut # (Auto) (8563-3159) /uL Lymph # (Auto) (8683-1502) /uL Nance # (Auto) (0-900) /uL Eos # (Auto) (0-450) /uL Baso # (Auto) (0-100) /uL PT (10.1-12.7) SECONDS INR (0.9-1.3) APTT (26.4-36.2) SECONDS Sodium (137-145) mmol/L Potassium (3.4-5.1) mmol/L Chloride (98-107) mmol/L Carbon Dioxide (22-32) mmol/L BUN (7-17) mg/dL Creatinine (0.52-1.04) mg/dL Estimated GFR (>60) mL/min BUN/Creatinine Ratio (6-22) Glucose (80-110) mg/dL Lactate (0.7-2.1) mmol/L Calcium (8.4-10.2) mg/dL Total Bilirubin (0.2-1.3) mg/dL AST (14-36) IU/L ALT (<35) IU/L Alkaline Phosphatase (38-126) U/L Ammonia (9-30) umol/L Total Protein (6.3-8.2) g/dL Albumin (3.5-5.0) g/dL Globulin (1.7-4.1) g/dL Albumin/Globulin Ratio (1.0-2.8) Lipase (23-300) U/L Procalcitonin (<0.5) ng/mL Urine Color Urine Appearance Urine pH (4.5-8.0) Ur Specific Bend (1.000-1.035) Urine Protein (Negative) Urine Glucose (UA) (Negative) g/dL Urine Ketones (NEGATIVE) Urine Occult Blood (Negative) Urine Nitrate (Negative) Urine Bilirubin (NEGATIVE) Urine Urobilinogen (0.2) E.U./dL Ur Leukocyte Esterase (NEGATIVE) Urine RBC (0-5/HPF) Urine WBC (0-5/HPF) Urine Bacteria (None) Ur Culture Indicated? A. baumannii (PCR) Shefali albicans (PCR) C. glabrata (PCR) C. krusei (PCR) C. parapsilosis (PCR) C. tropicalis (PCR) COVID-19 PCR Negative (Negative) Enterobacteriac sp PCR E. cloacae complex PCR Enterococcus sp PCR E. coli (PCR) H. influenzae (PCR) Klebsiella oxytoca PCR Klebsiella pneumoniae List. monocytogenes PCR N. meningitidis (PCR) Proteus species (PCR) Serratia marcescens PCR Staphylococcus sp PCR Staph aureus (PCR) mecA-Methicil Res Gene Streptococcus sp PCR Group A Strep (PCR) Strep agalactiae (PCR) Strep pneumoniae (PCR) P. aeruginosa (PCR) Rosendo/B-Vanco Res Genes KPC-Carbap Res Gene PCR Imaging Data Chest x-ray: Attestation: I personally reviewed and interpreted this imaging study as follows: Radiologist's Impression: [address] [address] XRay Report Signed Patient: Yisel Cuevas JESSICAR#: [id number] : [id number]:[id number] Age/Sex: 69 / FDate of Service: 02/02/20 Loc: ED Accession Number: [id number] Procedure: XR chest 1V Ordering Provider: Joy Smalls P.A-C PROCEDURE: XR CHEST 1V INDICATIONS: suspected sepsis TECHNIQUE: One view of the chest was acquired. COMPARISON: [facility], , XR CHEST 1V, 05/22/2019, 19:20. FINDINGS: Surgical changes and devices: There are surgical sutures in the left hilar region. Lungs and pleura: Lungs are clear. No pleural effusions or pneumothorax. Mediastinum: Mediastinal contours appear normal. Heart size is normal. Bones and chest wall: No suspicious bony lesions. Overlying soft tissues appear unremarkable. IMPRESSION: 1. No acute cardiopulmonary disease. Dictated by: Raphael Vergara M.D. on 02/02/2020 at 12:18 Approved by: Raphael Vergara M.D. on 02/02/2020 at 12:19 CT scan - head: Attestation: I personally reviewed and interpreted this imaging study as follows: Radiologist's Impression: [address] [address] [address] Scan Report Signed Patient: Yisel Cuevas JMR#: [id number] : [id number]:[id number] Age/Sex: 69 / FDate of Service: 02/02/20 Loc: ED Accession Number: [id number] Procedure: CT head/brain wo con Ordering Provider: Joy Smalls P.A-C PROCEDURE: CT HEAD/BRAIN WO CON INDICATIONS: new confusion, CA hx, balance issues TECHNIQUE: Noncontrast 4.5 mm thick angled axial sections acquired from the foramen magnum to the vertex, with coronal and sagittal reformats. For radiation dose reduction, the following was used: automated exposure control, adjustment of mA and/or kV according to patient size. COMPARISON: [facility], CT, CT ANGIO CHEST PE PROTOCOL, 05/22/2019, 20:12. [facility], MR, STROKE PROTOCOL, 05/15/2017, 8:40. [facility], MR, BRAIN WITHOUT CONTRAST, 04/30/2017, 7:47. FINDINGS: Image quality: Excellent. CSF spaces: Basal cisterns are patent. No extra-axial fluid collections. The ventricles are symmetric in size and shape. Brain: No intracranial bleeds or masses. There is minimal cerebral volume loss for age, with resultant ventricular and sulcal prominence. There are mild periventricular and deep white matter chronic small vessel ischemic changes. There is intracranial internal carotid artery atherosclerosis. Skull and face: Calvarium and visualized facial bones appear intact, without suspicious lesions. Sinuses: Visualized sinuses and mastoids are clear. IMPRESSION: 1. No acute intracranial abnormalities. Dictated by: Jimmy Smith M.D. on 02/02/2020 at 12:43 Approved by: Jimmy Simth M.D. on 02/02/2020 at 12:45 CT scan - abdomen/pelvis: Attestation: I personally reviewed and interpreted this imaging study as follows: Radiologist's Impression: [place] [address] CT Scan Report Signed Patient: Yisel Cuevas R#: [id number] : 2Acct:[id number] Age/Sex: 69 / FDate of Service: 02/02/20 Loc: ED Accession Number: [id number] Procedure: CT abdomen pelvis wo con Ordering Provider: Joy Smalls P.A-C PROCEDURE: CT ABDOMEN PELVIS WO CON INDICATIONS: new RLQ, RUQ abd pain, R flank pain TECHNIQUE: Noncontrast 5 mm thick sections acquired from the diaphragms to the symphysis. 5 mm thick coronal and sagittal reformats were then performed. For radiation dose reduction, the following was used: automated exposure control, adjustment of mA and/or kV according to patient size. COMPARISON: [facility], CT, CT ANGIO CHEST PE PROTOCOL, 05/22/2019, 20:12. [facility], CT, CT CHEST ABD PEL W CON, 01/05/2019, 12:13. [facility], CT, CHEST/ABD/PEL WITHOUT CONTRAST, 08/12/2017, 15:09. [facility], CT, CT CHEST WO CON, 07/15/2018, 10:47. FINDINGS: Image quality: Excellent. Lung bases: There are multiple small lung nodules bilaterally. Irregular subpleural densities in right middle lobe and lingula are likely scars/atelectasis. Mild centrilobular emphysema. Heart size is normal. Urinary system: There is a 6.5 mm stone at the right ureteropelvic junction. There is mild right hydronephrosis and perinephric stranding. A 4 mm nonobstructing stone is seen in the right renal pelvis. In the distal right ureter, there is a 2 mm stone near the right UVJ. The right kidney is slightly edematous with mild perinephric stranding in trace perinephric fluid. Left kidney is normal in size without stone or hydronephrosis. Both ureters appear non-dilated throughout their expected courses. Bladder wall thickness is normal; no calcified bladder stones. Other solid organs: Liver is normal in size. Gallbladder is unremarkable. Pancreas is normal in contours. Spleen is normal in size. There are bilateral adrenal nodules or nodular hyperplasia, unchanged. Peritoneum and bowel: Cecum may be thickened. There is a moderate to large amount of stool in colon. Unenhanced bowel loops demonstrate normal wall thickness and caliber. No free fluid or air. Nodes and vessels: No retroperitoneal or mesenteric adenopathy by size criteria. Aorta and inferior vena cava are normal in caliber. Moderate atherosclerosis. Abdominal wall: No ventral hernias. Pelvis: No free pelvic fluid. No inguinal hernias or adenopathy. Bones: No suspicious bony lesions. No vertebral body compression fractures. Severe degenerative changes, as well as postsurgical changes in lumbar spine. IMPRESSION: 1. A 6.5 mm stone in the proximal right ureter at the right UPJ causing mild right hydronephrosis and perinephric stranding. A tiny 2 mm stone is seen in the distal right ureter near the UVJ. 2. A 4 mm nonobstructing stone in right kidney. 3. Cecum may be mildly thickened. In the absence of oral contrast, the finding could be related to inflammatory/infectious process or artifact. 4. Bilateral adrenal nodules or nodular hyperplasia, unchanged. 5. Bilateral small pulmonary nodules, not definitively seen on the prior CT dated 05/22/2019. These nodules may be secondary to infectious, inflammatory or neoplastic etiologies. Recommend clinical correlation. Short-term follow-up chest CT is recommended. Dictated by: Jimmy Smith M.D. on 02/02/2020 at 13:11 Approved by: Jimmy Smith M.D. on 02/02/2020 at 13:30 [facility] Narrative Medical decision making narrative: This is a 69-year-old woman with a history of lung cancer, non-Hodgkin's lymphoma, thrombocytosis, renal failure, and NSTEMI who presents to the emergency department complaining of feeling ?off and spacey since Friday? with flank pain on the right, abdominal pain, blood in her urine and fatigue. Concern for sepsis, UTI, ureterolithiasis, CVA, metastatic disease. Other than generalized weakness her neuro exam is unremarkable, she does have a slight delay in processing and thought finding however no dysarthria or other symptoms suggestive of CVA, she has a negative noncontrast head CT. On abdominal pelvic CT Patient is found to have a ureterolithiasis with a 6mm obstructing stone at the UPJ and associated hydronephrosis. She has elevated white count, negative lactic. She also is found have an SHAYNA with more than doubled increase in her baseline creatinine. She is given fluids, Zosyn due to Keflex allergy, and given her SHAYNA, complex medical history including active untreated and non-Hodgkin's lymphoma and lung cancer history, is transferred to [facility] where she has previously received care, and where she will be able to receive emergent dialysis if necessary. Care is transferred to hospitalist Dr. Vera with family aware. <Lacey Mercado MD - Last Filed: 02/08/20 07:31> Lab Data Labs: Lab Results 02/02/20 02/02/20 02/02/20 Range/Units 10:10 10:30 10:30 WBC 15.5 H (4.5-11.0) X10^3/uL RBC 4.46 (4.0-5.2) X10^6/uL Hgb 14.0 (12.0-16.0) g/dL Hct 42.5 (36-46) % MCV 95.2 (80-100) fL MCH 31.4 (26-34) PG MCHC 33.0 (30-36) % RDW 14.1 (11.6-14.8) % Plt Count 510 H (150-400) X10^3/uL Neut % (Auto) 82.3 H (50-75) % Lymph % (Auto) 4.4 L (25-40) % Nance % (Auto) 11.1 (3-14) % Eos % (Auto) 1.0 L (2-4) % Baso % (Auto) 1.2 (0-2) % Neut # (Auto) 24224 H (1276-8485) /uL Lymph # (Auto) 700 L (3822-5507) /uL Nance # (Auto) 1700 H (0-900) /uL Eos # (Auto) 200 (0-450) /uL Baso # (Auto) 200 H (0-100) /uL PT (10.1-12.7) SECONDS INR (0.9-1.3) APTT (26.4-36.2) SECONDS Sodium 135 L (137-145) mmol/L Potassium 4.5 (3.4-5.1) mmol/L Chloride 99 (98-107) mmol/L Carbon Dioxide 24 (22-32) mmol/L BUN 60 H (7-17) mg/dL Creatinine 2.74 H (0.52-1.04) mg/dL Estimated GFR 17.2 L (>60) mL/min BUN/Creatinine Ratio 21.9 (6-22) Glucose 128 H (80-110) mg/dL Lactate (0.7-2.1) mmol/L Calcium 9.4 (8.4-10.2) mg/dL Total Bilirubin 0.5 (0.2-1.3) mg/dL AST 41 H (14-36) IU/L ALT 61 H (<35) IU/L Alkaline Phosphatase 126 (38-126) U/L Ammonia (9-30) umol/L Total Protein 8.2 (6.3-8.2) g/dL Albumin 4.0 (3.5-5.0) g/dL Globulin 4.2 H (1.7-4.1) g/dL Albumin/Globulin Ratio 1.0 (1.0-2.8) Lipase (23-300) U/L Procalcitonin (<0.5) ng/mL Urine Color Red Urine Appearance Cloudy Urine pH 5.5 (4.5-8.0) Ur Specific Bend 1.015 (1.000-1.035) Urine Protein 2+ H (Negative) Urine Glucose (UA) Negative (Negative) g/dL Urine Ketones Negative (NEGATIVE) Urine Occult Blood 3+ H (Negative) Urine Nitrate Negative (Negative) Urine Bilirubin Negative (NEGATIVE) Urine Urobilinogen 0.2 (0.2) E.U./dL Ur Leukocyte Esterase 1+ H (NEGATIVE) Urine RBC >100/hpf H (0-5/HPF) Urine WBC >100/hpf H (0-5/HPF) Urine Bacteria None seen (None) Ur Culture Indicated? Specimen cultured A. baumannii (PCR) Shefali albicans (PCR) C. glabrata (PCR) C. krusei (PCR) C. parapsilosis (PCR) C. tropicalis (PCR) COVID-19 PCR (Negative) Enterobacteriac sp PCR E. cloacae complex PCR Enterococcus sp PCR E. coli (PCR) H. influenzae (PCR) Klebsiella oxytoca PCR Klebsiella pneumoniae List. monocytogenes PCR N. meningitidis (PCR) Proteus species (PCR) Serratia marcescens PCR Staphylococcus sp PCR Staph aureus (PCR) mecA-Methicil Res Gene Streptococcus sp PCR Group A Strep (PCR) Strep agalactiae (PCR) Strep pneumoniae (PCR) P. aeruginosa (PCR) Rosendo/B-Vanco Res Genes KPC-Carbap Res Gene PCR 02/02/20 02/02/20 02/02/20 Range/Units 11:44 11:44 11:44 WBC (4.5-11.0) X10^3/uL RBC (4.0-5.2) X10^6/uL Hgb (12.0-16.0) g/dL Hct (36-46) % MCV (80-100) fL MCH (26-34) PG MCHC (30-36) % RDW (11.6-14.8) % Plt Count (150-400) X10^3/uL Neut % (Auto) (50-75) % Lymph % (Auto) (25-40) % Nance % (Auto) (3-14) % Eos % (Auto) (2-4) % Baso % (Auto) (0-2) % Neut # (Auto) (3297-7467) /uL Lymph # (Auto) (0925-1605) /uL Nance # (Auto) (0-900) /uL Eos # (Auto) (0-450) /uL Baso # (Auto) (0-100) /uL PT 10.7 (10.1-12.7) SECONDS INR 0.9 (0.9-1.3) APTT 31 (26.4-36.2) SECONDS Sodium (137-145) mmol/L Potassium (3.4-5.1) mmol/L Chloride (98-107) mmol/L Carbon Dioxide (22-32) mmol/L BUN (7-17) mg/dL Creatinine (0.52-1.04) mg/dL Estimated GFR (>60) mL/min BUN/Creatinine Ratio (6-22) Glucose (80-110) mg/dL Lactate 0.5 L (0.7-2.1) mmol/L Calcium (8.4-10.2) mg/dL Total Bilirubin (0.2-1.3) mg/dL AST (14-36) IU/L ALT (<35) IU/L Alkaline Phosphatase (38-126) U/L Ammonia (9-30) umol/L Total Protein (6.3-8.2) g/dL Albumin (3.5-5.0) g/dL Globulin (1.7-4.1) g/dL Albumin/Globulin Ratio (1.0-2.8) Lipase (23-300) U/L Procalcitonin 0.32 (<0.5) ng/mL Urine Color Urine Appearance Urine pH (4.5-8.0) Ur Specific Bend (1.000-1.035) Urine Protein (Negative) Urine Glucose (UA) (Negative) g/dL Urine Ketones (NEGATIVE) Urine Occult Blood (Negative) Urine Nitrate (Negative) Urine Bilirubin (NEGATIVE) Urine Urobilinogen (0.2) E.U./dL Ur Leukocyte Esterase (NEGATIVE) Urine RBC (0-5/HPF) Urine WBC (0-5/HPF) Urine Bacteria (None) Ur Culture Indicated? A. baumannii (PCR) Shefali albicans (PCR) C. glabrata (PCR) C. krusei (PCR) C. parapsilosis (PCR) C. tropicalis (PCR) COVID-19 PCR (Negative) Enterobacteriac sp PCR E. cloacae complex PCR Enterococcus sp PCR E. coli (PCR) H. influenzae (PCR) Klebsiella oxytoca PCR Klebsiella pneumoniae List. monocytogenes PCR N. meningitidis (PCR) Proteus species (PCR) Serratia marcescens PCR Staphylococcus sp PCR Staph aureus (PCR) mecA-Methicil Res Gene Streptococcus sp PCR Group A Strep (PCR) Strep agalactiae (PCR) Strep pneumoniae (PCR) P. aeruginosa (PCR) Rosendo/B-Vanco Res Genes KPC-Carbap Res Gene PCR 02/02/20 02/02/20 02/02/20 Range/Units 11:44 11:44 11:55 WBC (4.5-11.0) X10^3/uL RBC (4.0-5.2) X10^6/uL Hgb (12.0-16.0) g/dL Hct (36-46) % MCV (80-100) fL MCH (26-34) PG MCHC (30-36) % RDW (11.6-14.8) % Plt Count (150-400) X10^3/uL Neut % (Auto) (50-75) % Lymph % (Auto) (25-40) % Nance % (Auto) (3-14) % Eos % (Auto) (2-4) % Baso % (Auto) (0-2) % Neut # (Auto) (5607-4063) /uL Lymph # (Auto) (9654-5613) /uL Nance # (Auto) (0-900) /uL Eos # (Auto) (0-450) /uL Baso # (Auto) (0-100) /uL PT (10.1-12.7) SECONDS INR (0.9-1.3) APTT (26.4-36.2) SECONDS Sodium (137-145) mmol/L Potassium (3.4-5.1) mmol/L Chloride (98-107) mmol/L Carbon Dioxide (22-32) mmol/L BUN (7-17) mg/dL Creatinine (0.52-1.04) mg/dL Estimated GFR (>60) mL/min BUN/Creatinine Ratio (6-22) Glucose (80-110) mg/dL Lactate (0.7-2.1) mmol/L Calcium (8.4-10.2) mg/dL Total Bilirubin (0.2-1.3) mg/dL AST (14-36) IU/L ALT (<35) IU/L Alkaline Phosphatase (38-126) U/L Ammonia 13 (9-30) umol/L Total Protein (6.3-8.2) g/dL Albumin (3.5-5.0) g/dL Globulin (1.7-4.1) g/dL Albumin/Globulin Ratio (1.0-2.8) Lipase 87 (23-300) U/L Procalcitonin (<0.5) ng/mL Urine Color Urine Appearance Urine pH (4.5-8.0) Ur Specific Bend (1.000-1.035) Urine Protein (Negative) Urine Glucose (UA) (Negative) g/dL Urine Ketones (NEGATIVE) Urine Occult Blood (Negative) Urine Nitrate (Negative) Urine Bilirubin (NEGATIVE) Urine Urobilinogen (0.2) E.U./dL Ur Leukocyte Esterase (NEGATIVE) Urine RBC (0-5/HPF) Urine WBC (0-5/HPF) Urine Bacteria (None) Ur Culture Indicated? A. baumannii (PCR) Cancelled Shefali albicans (PCR) Cancelled C. glabrata (PCR) Cancelled C. krusei (PCR) Cancelled C. parapsilosis (PCR) Cancelled C. tropicalis (PCR) Cancelled COVID-19 PCR (Negative) Enterobacteriac sp PCR Cancelled E. cloacae complex PCR Cancelled Enterococcus sp PCR Cancelled E. coli (PCR) Cancelled H. influenzae (PCR) Cancelled Klebsiella oxytoca PCR Cancelled Klebsiella pneumoniae Cancelled List. monocytogenes PCR Cancelled N. meningitidis (PCR) Cancelled Proteus species (PCR) Cancelled Serratia marcescens PCR Cancelled Staphylococcus sp PCR Cancelled Staph aureus (PCR) Cancelled mecA-Methicil Res Gene Cancelled Streptococcus sp PCR Cancelled Group A Strep (PCR) Cancelled Strep agalactiae (PCR) Cancelled Strep pneumoniae (PCR) Cancelled P. aeruginosa (PCR) Cancelled Rosendo/B-Vanco Res Genes Cancelled KPC-Carbap Res Gene PCR Cancelled 02/02/20 Range/Units 11:55 WBC (4.5-11.0) X10^3/uL RBC (4.0-5.2) X10^6/uL Hgb (12.0-16.0) g/dL Hct (36-46) % MCV (80-100) fL MCH (26-34) PG MCHC (30-36) % RDW (11.6-14.8) % Plt Count (150-400) X10^3/uL Neut % (Auto) (50-75) % Lymph % (Auto) (25-40) % Nance % (Auto) (3-14) % Eos % (Auto) (2-4) % Baso % (Auto) (0-2) % Neut # (Auto) (1827-7846) /uL Lymph # (Auto) (6738-1716) /uL Nance # (Auto) (0-900) /uL Eos # (Auto) (0-450) /uL Baso # (Auto) (0-100) /uL PT (10.1-12.7) SECONDS INR (0.9-1.3) APTT (26.4-36.2) SECONDS Sodium (137-145) mmol/L Potassium (3.4-5.1) mmol/L Chloride (98-107) mmol/L Carbon Dioxide (22-32) mmol/L BUN (7-17) mg/dL Creatinine (0.52-1.04) mg/dL Estimated GFR (>60) mL/min BUN/Creatinine Ratio (6-22) Glucose (80-110) mg/dL Lactate (0.7-2.1) mmol/L Calcium (8.4-10.2) mg/dL Total Bilirubin (0.2-1.3) mg/dL AST (14-36) IU/L ALT (<35) IU/L Alkaline Phosphatase (38-126) U/L Ammonia (9-30) umol/L Total Protein (6.3-8.2) g/dL Albumin (3.5-5.0) g/dL Globulin (1.7-4.1) g/dL Albumin/Globulin Ratio (1.0-2.8) Lipase (23-300) U/L Procalcitonin (<0.5) ng/mL Urine Color Urine Appearance Urine pH (4.5-8.0) Ur Specific Bend (1.000-1.035) Urine Protein (Negative) Urine Glucose (UA) (Negative) g/dL Urine Ketones (NEGATIVE) Urine Occult Blood (Negative) Urine Nitrate (Negative) Urine Bilirubin (NEGATIVE) Urine Urobilinogen (0.2) E.U./dL Ur Leukocyte Esterase (NEGATIVE) Urine RBC (0-5/HPF) Urine WBC (0-5/HPF) Urine Bacteria (None) Ur Culture Indicated? A. baumannii (PCR) Shefali albicans (PCR) C. glabrata (PCR) C. krusei (PCR) C. parapsilosis (PCR) C. tropicalis (PCR) COVID-19 PCR Negative (Negative) Enterobacteriac sp PCR E. cloacae complex PCR Enterococcus sp PCR E. coli (PCR) H. influenzae (PCR) Klebsiella oxytoca PCR Klebsiella pneumoniae List. monocytogenes PCR N. meningitidis (PCR) Proteus species (PCR) Serratia marcescens PCR Staphylococcus sp PCR Staph aureus (PCR) mecA-Methicil Res Gene Streptococcus sp PCR Group A Strep (PCR) Strep agalactiae (PCR) Strep pneumoniae (PCR) P. aeruginosa (PCR) Rosendo/B-Vanco Res Genes KPC-Carbap Res Gene PCR Discharge Plan Departure Patient Disposition: [facility] Clinical Impression: SHAYNA (acute kidney injury), Ureterolithiasis Hydronephrosis Qualifiers: Hydronephrosis type: with renal calculous obstruction Qualified Code(s): N13.2 - Hydronephrosis with renal and ureteral calculous obstruction Leukocytosis Qualifiers: Leukocytosis type: unspecified Qualified Code(s): D72.829 - Elevated white blood cell count, unspecified Discharge Date/Time: 02/02/20 15:31 Prescriptions: No Action morphine [MS Contin] 30 MG tablet extended release 15 mg PO QAM Qty: 0 RF: 0 levothyroxine 88 MCG tablet 0.088 mg PO QAM Qty: 0 RF: 0 simvastatin [Zocor] 20 MG tablet 20 mg PO HS Qty: 0 RF: 0 amlodipine [Norvasc] 10 MG tablet 10 mg PO HS Qty: 0 RF: 0 diazepam [Valium] 5 MG tablet 2.5 - 5 mg PO Q8HP PRN (Reason: Anxiety) Qty: 0 RF: 0 topiramate [Topamax] 100 MG tablet 200 mg PO BID Qty: 0 RF: 0 omega 2-fab-ifx-fish oil [Fish Oil] 1,000 mg (120 mg-180 mg) Capsule 1,400 mg PO BID Qty: 0 RF: 0 aspirin 81 MG tablet,chewable 81 mg PO QDAY Qty: 0 RF: 0 [boswellia glucosamin] See Rx Instructions .ROUTE .COMPLEX Qty: 0 RF: 0 losartan 50 MG tablet 50 mg PO QDAY Qty: 0 RF: 0 venlafaxine 150 MG capsule,extended release 24hr 150 mg PO QDAY Qty: 0 RF: 0 calcium citrate-vitamin D3 [Citracal Regular] 250 mg calcium- 200 unit Tablet 1,200 mg PO QDAY Qty: 0 RF: 0 multivitamin [Multiple Vitamins] 1 EACH tablet 1 tab PO QDAY Qty: 0 RF: 0 propranolol 120 MG capsule,extended release 24 hr 1 cap PO QDAY RF: 0 biotin 5 mg Capsule 10 mg PO DAILY RF: 0 hydrocodone-acetaminophen 10-325 mg Tablet 1 tab PO TID PRN (Reason: Breakthrough Pain) RF: 0 Referrals: Ce Contreras MD [Primary Care Provider] - <Lacey Mercado MD - Last Filed: 02/08/20 07:31> Cosign ED Attending Cosjacquiature Attestation: I was immediately available in the department for consultation throughout this patient's visit. I agree with documentation as above. Lacey Mercado MD
--- NOTE | 2020-02-02 11:32 | DI.RAD.S_ITS ---
PROCEDURE: XR CHEST 1V INDICATIONS: suspected sepsis TECHNIQUE: One view of the chest was acquired. COMPARISON: [facility], CR, XR CHEST 1V, 05/22/2019, 19:20. FINDINGS: Surgical changes and devices: There are surgical sutures in the left hilar region. Lungs and pleura: Lungs are clear. No pleural effusions or pneumothorax. Mediastinum: Mediastinal contours appear normal. Heart size is normal. Bones and chest wall: No suspicious bony lesions. Overlying soft tissues appear unremarkable. IMPRESSION: 1. No acute cardiopulmonary disease. Dictated by: Raphael Vergara M.D. on 02/02/2020 at 12:18 Approved by: Raphael Vergara M.D. on 02/02/2020 at 12:19
[2020-02-02] MEDS: SODIUM CHLORIDE 0.9% 1,000 ML 1000 ML IV (11:36)
--- NOTE | 2020-02-02 11:49 | DI.CT.S_ITS ---
PROCEDURE: CT HEAD/BRAIN WO CON INDICATIONS: new confusion, CA hx, balance issues TECHNIQUE: Noncontrast 4.5 mm thick angled axial sections acquired from the foramen magnum to the vertex, with coronal and sagittal reformats. For radiation dose reduction, the following was used: automated exposure control, adjustment of mA and/or kV according to patient size. COMPARISON: [facility], CT, CT ANGIO CHEST PE PROTOCOL, 05/22/2019, 20:12. [facility], MR, STROKE PROTOCOL, 05/15/2017, 8:40. [facility], MR, BRAIN WITHOUT CONTRAST, 04/30/2017, 7:47. FINDINGS: Image quality: Excellent. CSF spaces: Basal cisterns are patent. No extra-axial fluid collections. The ventricles are symmetric in size and shape. Brain: No intracranial bleeds or masses. There is minimal cerebral volume loss for age, with resultant ventricular and sulcal prominence. There are mild periventricular and deep white matter chronic small vessel ischemic changes. There is intracranial internal carotid artery atherosclerosis. Skull and face: Calvarium and visualized facial bones appear intact, without suspicious lesions. Sinuses: Visualized sinuses and mastoids are clear. IMPRESSION: 1. No acute intracranial abnormalities. Dictated by: Jimmy Smith M.D. on 02/02/2020 at 12:43 Approved by: Jimmy Smith M.D. on 02/02/2020 at 12:45
[2020-02-02 11:50] LABS: INR 0.9 (0.9-1.3); Prothrombin Time 10.7 SECONDS (10.1-12.7)
--- NOTE | 2020-02-02 11:50 | DI.CT.S_ITS ---
PROCEDURE: CT ABDOMEN PELVIS WO CON INDICATIONS: new RLQ, RUQ abd pain, R flank pain TECHNIQUE: Noncontrast 5 mm thick sections acquired from the diaphragms to the symphysis. 5 mm thick coronal and sagittal reformats were then performed. For radiation dose reduction, the following was used: automated exposure control, adjustment of mA and/or kV according to patient size. COMPARISON: [facility], CT, CT ANGIO CHEST PE PROTOCOL, 05/22/2019, 20:12. [facility], CT, CT CHEST ABD PEL W CON, 01/05/2019, 12:13. [facility], CT, CHEST/ABD/PEL WITHOUT CONTRAST, 08/12/2017, 15:09. [facility], CT, CT CHEST WO CON, 07/15/2018, 10:47. FINDINGS: Image quality: Excellent. Lung bases: There are multiple small lung nodules bilaterally. Irregular subpleural densities in right middle lobe and lingula are likely scars/atelectasis. Mild centrilobular emphysema. Heart size is normal. Urinary system: There is a 6.5 mm stone at the right ureteropelvic junction. There is mild right hydronephrosis and perinephric stranding. A 4 mm nonobstructing stone is seen in the right renal pelvis. In the distal right ureter, there is a 2 mm stone near the right UVJ. The right kidney is slightly edematous with mild perinephric stranding in trace perinephric fluid. Left kidney is normal in size without stone or hydronephrosis. Both ureters appear non-dilated throughout their expected courses. Bladder wall thickness is normal; no calcified bladder stones. Other solid organs: Liver is normal in size. Gallbladder is unremarkable. Pancreas is normal in contours. Spleen is normal in size. There are bilateral adrenal nodules or nodular hyperplasia, unchanged. Peritoneum and bowel: Cecum may be thickened. There is a moderate to large amount of stool in colon. Unenhanced bowel loops demonstrate normal wall thickness and caliber. No free fluid or air. Nodes and vessels: No retroperitoneal or mesenteric adenopathy by size criteria. Aorta and inferior vena cava are normal in caliber. Moderate atherosclerosis. Abdominal wall: No ventral hernias. Pelvis: No free pelvic fluid. No inguinal hernias or adenopathy. Bones: No suspicious bony lesions. No vertebral body compression fractures. Severe degenerative changes, as well as postsurgical changes in lumbar spine. IMPRESSION: 1. A 6.5 mm stone in the proximal right ureter at the right UPJ causing mild right hydronephrosis and perinephric stranding. A tiny 2 mm stone is seen in the distal right ureter near the UVJ. 2. A 4 mm nonobstructing stone in right kidney. 3. Cecum may be mildly thickened. In the absence of oral contrast, the finding could be related to inflammatory/infectious process or artifact. 4. Bilateral adrenal nodules or nodular hyperplasia, unchanged. 5. Bilateral small pulmonary nodules, not definitively seen on the prior CT dated 05/22/2019. These nodules may be secondary to infectious, inflammatory or neoplastic etiologies. Recommend clinical correlation. Short-term follow-up chest CT is recommended. Dictated by: Jimmy Smith M.D. on 02/02/2020 at 13:11 Approved by: Jimmy Smith M.D. on 02/02/2020 at 13:30
[2020-02-02 11:52] LABS: PTT Partial Thromboplastin Tim 31 SECONDS (26.4-36.2)
[2020-02-02 11:54] LABS: Lipase 87 U/L (23-300)
[2020-02-02 11:55] LABS: Lactate (Lactic Acid) 0.5 mmol/L (0.7-2.1)
[2020-02-02 12:08] LABS: Procalcitonin 0.32 ng/mL (<0.5)
[2020-02-02 12:15] LABS: Ammonia (NH3) 13 umol/L (9-30)
[2020-02-02] MEDS: SODIUM CHLORIDE 0.9% 1,000 ML 500 ML IV (12:39)
[2020-02-02] MEDS: PIPERACILLIN-TAZO 2.25 GM/50 ML FROZ.PIGGY IV (12:39)
[2020-02-02 13:24] LABS: COVID19 -Nasal RAPID Negative (Negative)
== END 2020-02-02 15:31 | disposition short-term general hospital (02) ==
PROVIDERS: Emergency Medicine; Emergency Provider Student in an Organized Health Care Education/Training Program; PCP Internal Medicine; Referring Provider Student in an Organized Health Care Education/Training Program
DX: N13.2 Hydronephrosis with renal and ureteral calculous obstruction (principal); N17.9 Acute kidney failure, unspecified; D72.829 Elevated white blood cell count, unspecified; R53.83 Other fatigue; I10 Essential (primary) hypertension; R41.0 Disorientation, unspecified; R11.0 Nausea; K59.00 Constipation, unspecified; I25.2 Old myocardial infarction; Z85.118 Personal history of other malignant neoplasm of bronchus and lung; R10.31 Right lower quadrant pain; R10.11 Right upper quadrant pain
CPT/HCPCS: 36415; 70450; 71045; 74176; 80053; 81001; 82140; 83605; 83690; 84145; 85025; 85610; 85730; 87040; 87077; 87086; 87150; 87186; 87205; 87635; 93005; 93010; 96361; 96365; 99285; J2543

== ENCOUNTER → 2020-02-14 19:06 | Outpatient (ROUT) | payer MEDICARE, OTHER, SELFPAY ==
[2020-02-14 19:28] LABS: Add Manual Diff / Slide Review NO; Basophils Absolute Auto 200 /uL (0-100); Basophils Percent Auto 1.8 % (0-2); Eosinophils Absolute Auto 200 /uL (0-450); Eosinophils Percent Auto 1.7 % (2-4); Hematocrit 35.9 % (36-46); Hemoglobin 11.9 g/dL (12.0-16.0); Lymphocytes Absolute Auto 2000 /uL (1100-4500); Lymphocytes Percent Auto 19.7 % (25-40); Mean Corpuscular HGB Conc 33.2 % (30-36); Mean Corpuscular Hemoglobin 31.4 PG (26-34); Mean Corpuscular Volume 94.7 fL (80-100); Monocytes Absolute Auto 900 /uL (0-900); Monocytes Percent Auto 8.8 % (3-14); Neutrophils Absolute Auto 6800 /uL (1500-7000); Platelet Count 640 X10^3/uL (150-400); Red Cell Distribution Width 14.3 % (11.6-14.8)
[2020-02-14 19:41] LABS: Alanine Aminotransferase 25 IU/L (<35); Albumin 3.7 g/dL (3.5-5.0); Alkaline Phosphatase 140 U/L (38-126); Aspartate Aminotransferase 31 IU/L (14-36); BUN Creatinine Ratio 12.1 (6-22); Bilirubin Total 0.4 mg/dL (0.2-1.3); Blood Urea Nitrogen 19 mg/dL (7-17); Calcium 9.1 mg/dL (8.4-10.2); Carbon Dioxide 20 mmol/L (22-32); Chloride 109 mmol/L (98-107); Estimated Glomerular Filt Rate 32.8 mL/min (>60); Globulin 3.8 g/dL (1.7-4.1); Glucose 110 mg/dL (80-110); HEMOLYSIS < 15 (0-50); Potassium 4.7 mmol/L (3.4-5.1); Sodium 139 mmol/L (137-145); Total Protein 7.5 g/dL (6.3-8.2)
== END ==
PROVIDERS: PCP Internal Medicine; Visit Provider Internal Medicine
DX: N20.0 Calculus of kidney (principal); Z86.19 Personal history of other infectious and parasitic diseases; N17.9 Acute kidney failure, unspecified
CPT/HCPCS: 80053; 85025; 87086

== ENCOUNTER → 2020-08-23 11:39 | Outpatient (CLI) | payer MEDICARE, OTHER, SELFPAY ==
--- NOTE | 2020-08-23 11:43 | DI.MG.S_ITS ---
BILATERAL DIGITAL SCREENING MAMMOGRAM 3D/2D WITH CAD: 08/23/2020 CLINICAL: Routine screening. Family history of breast cancer. Comparison is made to exams dated: 07/20/2018 mammogram, 04/21/2017 mammogram, and 04/11/2014 mammogram - [facility]. The tissue of both breasts is heterogeneously dense. This may lower the sensitivity of mammography. Current study was also evaluated with a Computer Aided Detection (CAD) system. No significant masses, calcifications, or other findings are seen in either breast. There has been no significant interval change. IMPRESSION: NEGATIVE There is no mammographic evidence of malignancy. A 1 year screening mammogram is recommended. This exam was interpreted at Station ID: [id number]. NOTE: For mammograms, a report in lay terms will be sent to the patient. Approximately 15% of breast malignancies will not be visualized mammographically. In the management of a palpable breast mass, a negative mammogram must not discourage biopsy of a clinically suspicious lesion. Electronically Signed By: Raphael mart/lynn:08/24/2020 12:20:55 letter sent: Normal Exam ACR BI-RADS Category 1: Negative [id number]
== END ==
PROVIDERS: PCP Internal Medicine; Referring Provider Internal Medicine; Visit Provider Internal Medicine
DX: Z12.31 Encounter for screening mammogram for malignant neoplasm of breast (principal)
CPT/HCPCS: 77063; 77067

== ENCOUNTER → 2021-01-04 09:23 | Outpatient (CLI) | payer MEDICARE, OTHER, SELFPAY | PROVIDERS: PCP Internal Medicine; Referring Provider Internal Medicine; Visit Provider Internal Medicine | DX: Z78.0 Asymptomatic menopausal state (principal); M81.0 Age-related osteoporosis without current pathological fracture; E07.9 Disorder of thyroid, unspecified; Z85.118 Personal history of other malignant neoplasm of bronchus and lung; Z85.71 Personal history of Hodgkin lymphoma; Z90.722 Acquired absence of ovaries, bilateral; Z72.0 Tobacco use; Z82.62 Family history of osteoporosis | CPT/HCPCS: 77080 ==

== ENCOUNTER → 2021-01-19 11:21 | Outpatient (CLI) | payer MEDICARE, OTHER, SELFPAY ==
[2021-01-19 13:21] LABS: BUN Creatinine Ratio 12.6 (6-22); Blood Urea Nitrogen 15 mg/dL (7-17)
[2021-01-23 14:55] LABS: Calcium 9.9 mg/dL (8.4-10.2)
== END ==
PROVIDERS: PCP Internal Medicine; Referring Provider Internal Medicine; Visit Provider Internal Medicine
DX: M81.0 Age-related osteoporosis without current pathological fracture (principal)
CPT/HCPCS: 36415; 82310; 82565; 84520

== ENCOUNTER → 2021-04-11 11:28 | Outpatient (CLI) | payer MEDICARE, OTHER, SELFPAY ==
--- NOTE | 2021-04-11 11:31 | DI.MRI.S_ITS ---
PROCEDURE: MR LUMBAR SPINE WO CON INDICATIONS: Other low back pain TECHNIQUE: Noncontrast sagittal T1 spin echo and T2 fast echo, sagittal STIR, axial T1 and T2 fast spin echo through the lumbar spine. In cases with scoliosis, additional coronal T2 fast spin echo may be performed. COMPARISON: [facility], MR, MR LUMBAR SPINE WO CON, 02/09/2019, 9:17. FINDINGS: Image quality: Excellent. Alignment and Curvature: Grade 1 retrolisthesis of L1 on L2 and L2 on L3. Grade 1 anterolisthesis of L4 on L5. Postsurgical changes related to posterior spinal fixation and interbody cage grafts at L4-L5 and L5-S1. Bone Marrow: No evidence of acute fracture. Multilevel degenerative endplate sclerosis and spurring. Diffuse facet arthropathy. Scattered Schmorl's nodes incidentally noted Spinal Cord: Conus medullaris terminates at the L1 level. Visualized cord demonstrates normal signal and size. Paraspinous Soft Tissues: No paravertebral masses. T12-L1: Mild canal narrowing. Partial effacement of both lateral recesses with bilaterally symmetric appearance. Mild left and severe right foraminal stenosis with nerve root compression on the right. This has progressed on both sides since 02/09/19 L1-L2: Dorsal epidural lipomatosis. Mild canal narrowing. Partial effacement of both lateral recesses with bilaterally symmetric appearance. Severe right foraminal stenosis with nerve root compression. There is moderate left foraminal stenosis. Minimal interval progression on the right since the prior study. L2-L3: Dorsal epidural lipomatosis. Severe canal stenosis. Near complete effacement of both lateral recesses with bilaterally symmetric appearance. Moderate to severe right foraminal stenosis. Severe left foraminal narrowing with nerve root compression. No interval change L3-L4: Mild canal narrowing. Partial effacement of both lateral recesses with bilaterally symmetric appearance. Mild right foraminal stenosis and moderate left foraminal narrowing. There is slight nerve root compression on both sides however grossly unchanged appearance since the prior study L4-L5: Mild central canal narrowing. Partial effacement of both lateral recesses with bilaterally symmetric appearance. Moderate left and [id number] right foraminal stenosis, with slight nerve root compression on both sides although unchanged. L5-S1: No canal stenosis. Partial effacement of both lateral recesses with bilaterally symmetric appearance. Moderate bilateral foraminal stenoses. There is questionable nerve root compression on both sides however partially obscured by hardware artifact. Overall, no definite interval change IMPRESSION: Diffuse postsurgical and spondylitic changes. Multilevel spondylolisthesis as above. Interval progression in bilateral foraminal stenoses at T12-L1, L1-L2. Otherwise, unchanged appearance at the remaining spinal levels. Dictated by: Raffaele Ramirez M.D. on 04/11/2021 at 13:06 Approved by: Raffaele Ramirez M.D. on 04/11/2021 at 13:16
== END ==
PROVIDERS: PCP Internal Medicine; Referring Provider Acupuncturist; Visit Provider Acupuncturist
DX: M54.59 Other low back pain (principal); M43.16 Spondylolisthesis, lumbar region; M48.05 Spinal stenosis, thoracolumbar region; M48.061 Spinal stenosis, lumbar region without neurogenic claudication; Z98.1 Arthrodesis status
CPT/HCPCS: 72148

== ENCOUNTER → 2021-10-16 11:38 | Outpatient (CLI) | payer MEDICARE, OTHER, SELFPAY | PROVIDERS: PCP Internal Medicine; Referring Provider Internal Medicine; Visit Provider Internal Medicine | DX: M81.0 Age-related osteoporosis without current pathological fracture (principal); M85.80 Other specified disorders of bone density and structure, unspecified site | CPT/HCPCS: 77080 ==

== ENCOUNTER → 2022-05-30 08:07 | Outpatient (CLI) | payer MEDICARE, OTHER, SELFPAY ==
--- NOTE | 2022-05-30 | DI.MG.S_ITS ---
BILATERAL DIGITAL SCREENING MAMMOGRAM 3D/2D WITH CAD: 05/30/2022 CLINICAL: Routine screening. Family history of breast cancer. Comparison is made to exams dated: 08/23/2020 mammogram, 07/20/2018 mammogram, and 04/21/2017 mammogram - [facility]. Both breasts are heterogeneously dense, which may obscure small masses (category c / 51-75% glandular tissue). Current study was also evaluated with a Computer Aided Detection (CAD) system. No significant masses, calcifications, or other findings are seen in either breast. There has been no significant interval change. IMPRESSION: NEGATIVE There is no mammographic evidence of malignancy. A 1 year screening mammogram is recommended. Based on the Tyrer Cuzick model (a risk assessment model) the patient's lifetime risk is 9.7% and her 10 year risk is 6.7%. According to the ACR, ACS, and NCCN guidelines, an annual breast MRI exam along with mammogram is recommended if the patient's lifetime risk is 20% or greater. This exam was interpreted at Station ID: [id number]. NOTE: For mammograms, a report in lay terms will be sent to the patient. Approximately 15% of breast malignancies will not be visualized mammographically. In the management of a palpable breast mass, a negative mammogram must not discourage biopsy of a clinically suspicious lesion. Electronically Signed By: Mohsen Castro M.D., jr/lynn:05/30/2022 12:53:28 letter sent: Normal Exam ACR BI-RADS Category 1: Negative [id number]
== END ==
PROVIDERS: PCP Internal Medicine; Referring Provider Internal Medicine; Visit Provider Internal Medicine
DX: Z12.31 Encounter for screening mammogram for malignant neoplasm of breast (principal); Z80.3 Family history of malignant neoplasm of breast
CPT/HCPCS: 77063; 77067

== ENCOUNTER → 2022-06-06 12:47 | Outpatient (CLI) | payer MEDICARE, OTHER, SELFPAY | PROVIDERS: PCP Internal Medicine; Visit Provider Physician Assistant Medical | DX: N39.0 Urinary tract infection, site not specified (principal) | CPT/HCPCS: 87086 ==

== ENCOUNTER → 2023-05-21 09:44 | Outpatient (CLI) | payer MEDICARE, OTHER, SELFPAY ==
--- NOTE | 2023-05-21 | DI.RAD.S_ITS ---
PROCEDURE: XR CERVICAL SPINE 2V OR 3V INDICATIONS: BACK PAIN TECHNIQUE: 4 view(s) of the cervical spine were acquired. COMPARISON: None. FINDINGS: Bones: Moderate to severe degenerative changes, particularly in the lower cervical spine, with facet and uncovertebral arthropathy, disc space height loss, and osteophytes. No acute vertebral body height loss up to the level of C6. No traumatic subluxation identified. Soft tissues: Prevertebral soft tissues are within normal limits. There are vascular calcifications. C1 on C2 alignment within normal limits on odontoid views. Possible left lung apex opacity. IMPRESSION: Moderate to severe spondylosis. No acute radiographic abnormality up to the level of C6. If there is high concern for further derangement, consider MRI evaluation. Possible opacity at the left lung apex is partially seen, consider follow-up chest imaging. Dictated by: Sunil Mejia M.D. on 05/21/2023 at 12:49 Approved by: Sunil Mejia M.D. on 05/21/2023 at 12:51
--- NOTE | 2023-05-21 | DI.RAD.S_ITS ---
PROCEDURE: XR THORACIC SPINE 2V INDICATIONS: BACK PAIN TECHNIQUE: 3 views of the thoracic spine were acquired. COMPARISON: None. FINDINGS: Bones: There are moderate degenerative changes. No traumatic subluxation. Partially seen leftward spinal curvature of the thoracolumbar junction. Partially seen intrathecal device, terminating in the mid thoracic thecal sac. Soft tissues: No suspicious calcifications. The aorta is tortuous. IMPRESSION: Moderate thoracic degenerative changes and leftward thoracolumbar spinal curvature If there is high concern for further derangement, consider MRI evaluation. Dictated by: Sunil Mejia M.D. on 05/21/2023 at 12:52 Approved by: Sunil Mejia M.D. on 05/21/2023 at 12:54
--- NOTE | 2023-05-21 | DI.RAD.S_ITS ---
PROCEDURE: XR LUMBAR SPINE 2-3V INDICATIONS: BACK PAIN TECHNIQUE: 3 views of the lumbar spine were acquired. COMPARISON: [facility], CR, L-SPINE 2-3 VIEWS, 08/18/2012, 8:27. [facility], CT, CT ABDOMEN PELVIS WITH CONTRAST, 05/14/2022, 12:38. FINDINGS: Bones: Lumbosacral fusion hardware with interbody spacers. There is spinal curvature centered at the thoracolumbar junction. Overall moderate degenerative changes, with disc space height loss, facet arthropathy, and osteophytes. Anterolisthesis of L4 on L5 again seen. Partially seen intrathecal device. Soft tissues: Vascular calcifications are present. IMPRESSION: Moderate degenerative changes. Lumbosacral fusion hardware. Consider cross-sectional imaging if there is further concern. Dictated by: Sunil Mejia M.D. on 05/21/2023 at 12:54 Approved by: Sunil Mejia M.D. on 05/21/2023 at 12:55
== END ==
LOC: RAD 09:47
PROVIDERS: PCP Nurse Practitioner Family; Referring Provider Nurse Practitioner Family; Visit Provider Nurse Practitioner Family
DX: M47.812 Spondylosis without myelopathy or radiculopathy, cervical region (principal); M47.814 Spondylosis without myelopathy or radiculopathy, thoracic region; M47.816 Spondylosis without myelopathy or radiculopathy, lumbar region; M54.2 Cervicalgia; M54.9 Dorsalgia, unspecified; T14.90XA Injury, unspecified, initial encounter; Z98.1 Arthrodesis status
CPT/HCPCS: 72040; 72070; 72100

== ENCOUNTER → 2023-06-19 10:32 | Outpatient (CLI) | payer MEDICARE, OTHER, SELFPAY ==
--- NOTE | 2023-06-19 10:34 | DI.MRI.S_ITS ---
PROCEDURE: MR CERVICAL SPINE WO CON INDICATIONS: Spinal stenosis, cervical region TECHNIQUE: Noncontrast sagittal T1 spin echo and T2 fast spin echo, sagittal STIR, foraminal oblique sagittal T2 fast spin echo, and axial gradient echo or T2 fast spin echo through the cervical spine. COMPARISON: None. FINDINGS: Image quality: Excellent. Alignment and Curvature: Straightening of the normal cervical lordosis. Bone Marrow: Degenerative endplate edema at C3-C4. Marrow demonstrates normal overall signal. Spinal Cord: Visualized spinal cord has normal size and signal. No cerebellar tonsillar herniation. Paraspinous Soft Tissues: No paravertebral masses. Prevertebral soft tissues are normal in thickness. C2-C3: Disc desiccation and mild posterior disc osteophyte complex. Mild central canal stenosis. Facet and uncovertebral arthropathy. Mild bilateral neural foraminal stenosis. C3-C4: Disc desiccation height loss. Posterior disc osteophyte complex. Moderate central canal stenosis. Facet and uncovertebral arthropathy. Severe bilateral neural foraminal stenosis. C4-C5: Disc desiccation height loss. Minimal posterior disc osteophyte complex. Mild central canal stenosis. Facet and uncovertebral arthropathy. Moderate left and no right neural foraminal stenosis. C5-C6: Disc desiccation height loss. Posterior disc osteophyte complex. Mild central canal stenosis. Facet and uncovertebral arthropathy. Severe left and moderate to severe right neural foraminal stenosis. C6-C7: Disc desiccation height loss. Posterior disc osteophyte complex. Moderate central canal stenosis. Facet and uncovertebral arthropathy. Moderate bilateral neural foraminal stenosis. C7-T1: Disc desiccation height loss. Minimal posterior disc osteophyte complex. No central canal stenosis. No neural foraminal stenosis. IMPRESSION: 1. Multilevel degenerative changes of the cervical spine. 2. There is moderate central canal stenosis at C3-C4 and C6-C7. 3. Severe bilateral neural foraminal stenosis at C3-C4. Severe left and moderate to severe right neural foraminal stenosis at C5-C6. Dictated by: Salvatore Barraza M.D. on 06/19/2023 at 12:19 Approved by: Salvatore Barraza M.D. on 06/19/2023 at 12:23
== END ==
LOC: MRI 10:33
PROVIDERS: PCP Nurse Practitioner Family; Referring Provider Acupuncturist; Visit Provider Acupuncturist
DX: M48.02 Spinal stenosis, cervical region (principal); M47.812 Spondylosis without myelopathy or radiculopathy, cervical region
CPT/HCPCS: 72141

== ENCOUNTER → 2024-03-17 12:04 | Outpatient (CLI) | payer MEDICARE, OTHER, SELFPAY ==
--- NOTE | 2024-03-17 12:06 | DI.MG.S_ITS ---
BILATERAL DIGITAL SCREENING MAMMOGRAM 3D/2D WITH CAD: 03/17/2024 CLINICAL: Routine screening. Family history of breast cancer. Comparison is made to exams dated: 05/30/2022 mammogram, 08/23/2020 mammogram, and 07/20/2018 mammogram - [facility]. The breasts are heterogeneously dense, which may obscure small masses (category c / 51-75% glandular tissue). Current study was also evaluated with a Computer Aided Detection (CAD) system. No significant masses, calcifications, or other findings are seen in either breast. There has been no significant interval change. IMPRESSION: NEGATIVE There is no mammographic evidence of malignancy. A 1 year screening mammogram is recommended. Based on the Tyrer Cuzick model (a risk assessment model) the patient's lifetime risk is 9.2% and her 10 year risk is 6.9%. According to the ACR, ACS, and NCCN guidelines, an annual breast MRI exam along with mammogram is recommended if the patient's lifetime risk is 20% or greater. This exam was interpreted at Station ID: [id number]. NOTE: For mammograms, a report in lay terms will be sent to the patient. Approximately 15% of breast malignancies will not be visualized mammographically. In the management of a palpable breast mass, a negative mammogram must not discourage biopsy of a clinically suspicious lesion. Electronically Signed By: Malia domingo/lynn:03/17/2024 19:29:23 letter sent: Normal Exam ACR BI-RADS Category 1: Negative
== END ==
PROVIDERS: PCP Nurse Practitioner Family; Referring Provider Nurse Practitioner Family; Visit Provider Nurse Practitioner Family
DX: Z12.31 Encounter for screening mammogram for malignant neoplasm of breast (principal); Z80.3 Family history of malignant neoplasm of breast; R92.333 Mammographic heterogeneous density, bilateral breasts
CPT/HCPCS: 77063; 77067

== ENCOUNTER → 2024-04-19 13:42 | Outpatient (CLI) | payer MEDICARE, OTHER, SELFPAY ==
--- NOTE | 2024-04-19 13:44 | DI.MRI.S_ITS ---
PROCEDURE: MR LUMBAR SPINE WO CON INDICATIONS: spinal stenosis TECHNIQUE: Noncontrast sagittal T1 spin echo and T2 fast echo, sagittal STIR, and T2 fast spin echo through the lumbar spine. In cases with scoliosis, additional coronal T2 fast spin echo may be performed. COMPARISON: [facility], CR, XR LUMBAR SPINE 2-3V, 05/21/2023, 11:09. [facility], MR, MR LUMBAR SPINE WO CON, 04/11/2021, 12:16. FINDINGS: Image quality: Excellent. Alignment and Curvature: There is moderate S-shaped scoliotic curvature of the lower thoracic and lumbar spine. Grade 1 anterolisthesis of L4 on L5 and grade 1 retrolisthesis of L1 on L2 and L2 on L3, which do not appear significantly changed when compared to the MRI from 04/11/2021. Bone Marrow: Chronic postsurgical changes are again seen at the L4 through S1 levels with right sided pedicle screws and interbody ethan at the L4-5 level and left-sided pedicle screws and interbody ethan at the L5-S1 level as well as disc spacers at the L4-5 and L5-S1 levels. Modic type 1 degenerative endplate edema adjacent to the L2-3 disc space. No suspicious marrow replacing mass. No acute vertebral body compression fractures. Spinal Cord: Conus medullaris terminates at the L1-2 level. Visualized cord demonstrates normal signal and size. Paraspinous Soft Tissues: No paravertebral masses. Grade 2 fatty infiltration of the paraspinous musculature superiorly. Grade 4 fatty infiltration of the paraspinous musculature at L4 through the sacrum. Small bilateral supple [id number] renal cysts. Bilateral adrenal nodules do not appear significantly changed when compared to the prior MRI. T12-L1: Loss of disc space height with posterior disc-osteophyte complex and bilateral facet hypertrophy. Findings result in severe right and mild left neural foraminal narrowing as well as mild narrowing of the spinal canal. Findings have mildly progressed when compared to the prior MRI from 04/11/2021. L1-L2: Loss of disc space height with posterior disc-osteophyte complex and bilateral facet hypertrophy. Findings result in severe narrowing of the right neural foramen and mild narrowing of the left neural foramen as well as mild narrowing of the spinal canal. Findings have mildly progressed. L2-L3: Loss of disc space height with circumferential disc bulging/disc-osteophyte complex as well as bilateral facet hypertrophy that is greater on the left than on the right and mild epidural lipomatosis. Findings result in severe narrowing of the spinal canal with effacement of the lateral recesses that is slightly greater on the left as well as moderate right and severe left neural foraminal narrowing. Findings have progressed when compared to the MRI from 04/11/2021. L3-L4: Disc desiccation and mild circumferential disc bulging as well as severe facet hypertrophy that is greater on the left. Findings result in moderate to severe left and mild right neural foraminal narrowing as well as mild narrowing of the spinal canal and crowding of the left lateral recess. L4-L5: Postsurgical changes with decompression of the spinal canal. At least moderate residual bilateral neural foraminal narrowing, which does not appear significantly changed. L5-S1: Postsurgical changes with decompression of the spinal canal. No significant residual neural foraminal narrowing is seen. Findings do not appear significantly changed. IMPRESSION: 1. Postsurgical changes again seen at the L4-5 and L5-S1 levels. 2. At L2-3, progressive degenerative changes and mild epidural lipomatosis result in in severe narrowing of the spinal canal with effacement of the lateral recesses as well as severe left and moderate right neural foraminal narrowing, mildly progressed when compared to the MRI from 04/11/2021. 3. Additional multilevel degenerative disc disease and facet hypertrophy curvature as described in detail in the body of the report superimposed on moderate scoliotic curvature. Findings result in multi focal high-grade neural foraminal narrowing without additional levels of high-grade spinal canal stenosis. 4. Stable appearance of bilateral adrenal nodules. Approved by: Torsten Celeste M.D. on 04/19/2024 at 15:53
== END ==
PROVIDERS: PCP Nurse Practitioner Family; Referring Provider Acupuncturist; Visit Provider Acupuncturist
DX: M48.061 Spinal stenosis, lumbar region without neurogenic claudication (principal); M47.816 Spondylosis without myelopathy or radiculopathy, lumbar region; M51.369 Other intervertebral disc degeneration, lumbar region without mention of lumbar back pain or lower extremity pain; E27.9 Disorder of adrenal gland, unspecified; M41.9 Scoliosis, unspecified; Z98.1 Arthrodesis status
CPT/HCPCS: 72148

== ENCOUNTER 2024-05-06 12:02 | Emergency (ER) | payer MEDICARE, OTHER, SELFPAY ==
[2024-05-06] VITALS (7 sets, daily range): BP systolic 120–144; BP diastolic 70–79; PULSE 38–75; RESP 16–21; TEMP 36.4; O2SAT 94–97; BMI 20.3
--- NOTE | 2024-05-06 12:13 | ED_ITS ---
HPI - Back Pain/Injury <Gurpreet Santiago PA-C - Last Filed: 05/06/24 13:55> General Chief Complaint: Back Pain/Injury Stated Complaint: Back pain-out of MS-concerned about withdrawals Time Seen by Provider: 05/06/24 12:13 History of Present Illness HPI Narrative: This is a 73-year-old female presenting to the emergency department due to chronic back pain has been affecting for the last 4 months. She had surgery for her cervical and lumbar spine 4 months ago and the pain began after that. She was seen her surgeon 2 days ago without any surgical concerns. She denies any urinary bowel incontinence, saddle paresthesias. States she was ?pain all over?. Patient states that she was out of her pain medications, morphine, that she sees via a pain contract and pain clinic. Poor historian. Per daughter who arrived later to the room: Patient was seen 2 days ago by her orthopedist and was ordered an urgent MRI to rule out a stroke as she has been falling to her left side over the last 2 months. Related Data Home Medications Medication Instructions Recorded Confirmed amlodipine 10 mg tablet (Norvasc) 10 mg PO HS ##0 04/03/12 02/02/20 diazepam 5 mg tablet (Valium) 2.5 - 5 mg PO Q8HP PRN Anxiety ##0 04/03/12 02/02/20 levothyroxine 88 mcg tablet 0.088 mg PO QAM ##0 04/03/12 02/02/20 morphine 30 mg tablet,extended 15 mg PO QAM ##0 04/03/12 02/02/20 release (MS Contin) simvastatin 20 mg tablet (Zocor) 20 mg PO HS ##0 04/03/12 02/02/20 omega [id number]-kpy-kwq-fish oil 1,000 mg 1,400 mg PO BID ##0 08/05/12 02/02/20 (120 mg-180 mg) capsule (Fish Oil) topiramate 100 mg tablet (Topamax) 200 mg PO BID ##0 08/05/12 02/02/20 [boswellia glucosamin] See Rx Instructions .Route 08/10/17 02/02/20 .COMPLEX ##0 aspirin 81 mg chewable tablet 81 mg PO QDAY ##0 08/10/17 02/02/20 losartan 50 mg tablet 50 mg PO QDAY ##0 08/10/17 02/02/20 venlafaxine 150 mg 150 mg PO QDAY ##0 08/10/17 02/02/20 capsule,extended release 24 hr calcium citrate 250 mg 1,200 mg PO QDAY ##0 08/12/17 02/02/20 calcium-vitamin D3 5 mcg (200 unit) tablet (Citracal Regular) multivitamin (Multiple Vitamins 1 tab PO QDAY ##0 08/12/17 02/02/20 tablet) propranolol 120 mg capsule,24 1 cap PO QDAY 11/11/17 02/02/20 hr,extended release biotin 5 mg capsule 10 mg PO DAILY 07/21/18 02/02/20 hydrocodone 10 mg-acetaminophen 1 tab PO TID PRN Breakthrough Pain 02/02/20 02/02/20 325 mg tablet Previous Rx's Medication Instructions Recorded albuterol sulfate 90 mcg/actuation 2 inh inhalation Q8H PRN shortness 06/06/22 aerosol inhaler (ProAir HFA) of breath or wheezing 30 days #8.5 grams nitrofurantoin macrocrystal 100 mg 100 mg PO BID #10 caps 06/06/22 capsule Allergies Allergy/AdvReac Type Severity Reaction Status Date / Time latex Allergy Intermediate HIVES Verified 02/02/20 11:11 adhesive Allergy Mild HIVES Verified 02/02/20 11:11 CLOTH BANDAIDS [place] bupropion [From WELLBUTRIN] Allergy Mild Verified 02/02/20 11:11 cephalexin [From KEFLEX] Allergy Mild Verified 02/02/20 11:11 gabapentin [From NEURONTIN] Allergy Mild Verified 02/02/20 11:11 pregabalin [From LYRICA] Allergy Mild Verified 02/02/20 11:11 indomethacin [INDOMETHACIN] AdvReac Intermediate MEMORY Verified 02/02/20 11:11 ISSUES Review of Systems <Gurpreet Santiago PA-C - Last Filed: 05/06/24 13:55> Review of Systems Narrative: GENERAL: Denies chills, fatigue, malaise, fever, sweats. HEENT: Denies sinus pain, ear pain, sore throat, difficulty swallowing, dizziness. RESPIRATORY: Denies dyspnea, cough, wheezing, hemoptysis, sputum. CARDIOVASCULAR: Denies chest pain, palpitations, orthopnea, edema, GASTROINTESTINAL: Denies nausea, vomiting, abdominal pain, diarrhea, constipation, melena. : Denies dysuria, frequency, incontinence, hematuria, urinary retention. MUSCULOSKELETAL: Reports back pain and myalgia, denies weakness, joint pain, or bony pain SKIN: Denies rash, skin lesions, or other NEUROLOGIC: Denies weakness, headache, numbness, change in speech, confusion, seizures, incoordination. PSYCHIATRIC: No concerning psychosocial issues. 12 point review of systems is negative except for those stated above Patient History <Gurpreet Santiago PA-C - Last Filed: 05/06/24 13:55> Medical History (Updated 05/06/24 @ 21:36 by Flaquita Lucia RN) CVA (cerebral vascular accident) Social History household members: spouse Smoking Status: Former smoker Smoking Status: Former smoker alcohol intake frequency: other Exam <Gurpreet Santiago PA-C - Last Filed: 05/06/24 13:55> Narrative Exam Narrative: GENERAL: Well-developed patient, in mild distress. HEAD: Atraumatic. Normocephalic. EYES: Pupils equal round and reactive. Extraocular motions intact. No scleral icterus. No injection or drainage. ENT: Nose without bleeding, purulent drainage. Throat without erythema, tonsillar hypertrophy or exudate. Airway patent. NECK: Trachea midline. Non tender EXTREMITIES: No edema or joint tenderness. NEURO: AOx3. When asked to move her upper extremities patient moves solely the right although she was able to move the left upper extremity when repeatedly directed. After direction patient isn't demonstrating any acute weakness in her upper or lower extremities. Cranial nerves 2-12 intact. SKIN: No rash or erythema of visible areas Initial Vital Signs Initial Vital Signs: Vital Signs Temperature 97.5 F L 05/06/24 12:11 Pulse Rate 72 05/06/24 12:11 Respiratory Rate 16 05/06/24 12:11 Blood Pressure 132/79 05/06/24 12:11 Pulse Oximetry 97 05/06/24 12:11 Oxygen Delivery Method Room Air 05/06/24 12:11 <Andrea Shaffer DO - Last Filed: 05/13/24 18:03> Initial Vital Signs Initial Vital Signs: Vital Signs Temperature 97.5 F L 05/06/24 12:11 Pulse Rate 72 05/06/24 12:11 Respiratory Rate 16 05/06/24 12:11 Blood Pressure 132/79 05/06/24 12:11 Pulse Oximetry 97 05/06/24 12:11 Oxygen Delivery Method Room Air 05/06/24 12:11 <Nickie Levine MD - Last Filed: 05/06/24 22:26> Initial Vital Signs Initial Vital Signs: Vital Signs Temperature 97.5 F L 05/06/24 12:11 Pulse Rate 72 05/06/24 12:11 Respiratory Rate 16 05/06/24 12:11 Blood Pressure 132/79 05/06/24 12:11 Pulse Oximetry 97 05/06/24 12:11 Oxygen Delivery Method Room Air 05/06/24 12:11 Course <Gurpreet Santiago PA-C - Last Filed: 05/06/24 13:55> Orders Ordered: Discontinued Medications Dexamethasone (Dexamethasone 10 Mg/Ml Vial) 10 mg IV NOW ONE Stop: 05/06/24 13:35 Last Admin: 05/06/24 14:14 Dose: 10 mg Documented By: RAPHAEL Levetiracetam 1,000 mg/ Sodium (Chloride) 110 mls @ 440 mls/hr IV NOW ONE Stop: 05/06/24 13:35 Last Infusion: 05/06/24 14:59 Dose: Infused Documented By: Admin: 05/06/24 14:14 Dose: 440 mls/hr Documented By: RAPHAEL Morphine Sulfate (Morphine 4 Mg/Ml Inj) 4 mg IV NOW ONE Stop: 05/06/24 18:00 Last Admin: 05/06/24 19:06 Dose: 4 mg Documented By: RAPHAEL Reevaluation(s) Reevaluation #1: 1245: Daughter arrived to room he was a much better historian. She was stating the patient was here for a stroke rule out as patient was reports falling to the left and saw her orthopedist 2 days ago where he ordered an urgent MRI. Vital Signs Vital signs: Vital Signs - 8 hr 05/06/24 14:30 05/06/24 17:56 05/06/24 17:56 Pulse Rate 75 38 L Respiratory Rate Blood Pressure 122/70 Pulse Oximetry 96 Oxygen Delivery Method Room Air 05/06/24 18:00 05/06/24 21:15 Pulse Rate 74 72 Respiratory Rate 18 21 Blood Pressure 122/70 120/71 Pulse Oximetry 96 96 Oxygen Delivery Method Room Air Room Air <Andrea Shaffer DO - Last Filed: 05/13/24 18:03> Orders Ordered: Discontinued Medications Dexamethasone (Dexamethasone 10 Mg/Ml Vial) 10 mg IV NOW ONE Stop: 05/06/24 13:35 Last Admin: 05/06/24 14:14 Dose: 10 mg Documented By: RAPHAEL Levetiracetam 1,000 mg/ Sodium (Chloride) 110 mls @ 440 mls/hr IV NOW ONE Stop: 05/06/24 13:35 Last Infusion: 05/06/24 14:59 Dose: Infused Documented By: Admin: 05/06/24 14:14 Dose: 440 mls/hr Documented By: RAPHAEL Morphine Sulfate (Morphine 4 Mg/Ml Inj) 4 mg IV NOW ONE Stop: 05/06/24 18:00 Last Admin: 05/06/24 19:06 Dose: 4 mg Documented By: RAPHAEL Vital Signs Vital signs: Vital Signs - 8 hr 05/06/24 14:30 05/06/24 17:56 05/06/24 17:56 Pulse Rate 75 38 L Respiratory Rate Blood Pressure 122/70 Pulse Oximetry 96 Oxygen Delivery Method Room Air 05/06/24 18:00 05/06/24 21:15 Pulse Rate 74 72 Respiratory Rate 18 21 Blood Pressure 122/70 120/71 Pulse Oximetry 96 96 Oxygen Delivery Method Room Air Room Air <Nickie Levine MD - Last Filed: 05/06/24 22:26> Orders Ordered: Discontinued Medications Dexamethasone (Dexamethasone 10 Mg/Ml Vial) 10 mg IV NOW ONE Stop: 05/06/24 13:35 Last Admin: 05/06/24 14:14 Dose: 10 mg Documented By: RAPHAEL Levetiracetam 1,000 mg/ Sodium (Chloride) 110 mls @ 440 mls/hr IV NOW ONE Stop: 05/06/24 13:35 Last Infusion: 05/06/24 14:59 Dose: Infused Documented By: Admin: 05/06/24 14:14 Dose: 440 mls/hr Documented By: RAPHAEL Morphine Sulfate (Morphine 4 Mg/Ml Inj) 4 mg IV NOW ONE Stop: 05/06/24 18:00 Last Admin: 05/06/24 19:06 Dose: 4 mg Documented By: RAPHAEL Vital Signs Vital signs: Vital Signs - 8 hr 05/06/24 14:30 05/06/24 17:56 05/06/24 17:56 Pulse Rate 75 38 L Respiratory Rate Blood Pressure 122/70 Pulse Oximetry 96 Oxygen Delivery Method Room Air 05/06/24 18:00 05/06/24 21:15 Pulse Rate 74 72 Respiratory Rate 18 21 Blood Pressure 122/70 120/71 Pulse Oximetry 96 96 Oxygen Delivery Method Room Air Room Air MDM - Back Pain/Injury <Gurpreet Santiago PA-C - Last Filed: 05/06/24 13:55> Lab Data 05/06/24 13:58 05/06/24 13:58 Labs: Lab Results 05/06/24 Range/Units 13:58 WBC 13.6 H (4.5-11.0) X10^3/uL RBC 5.13 (4.0-5.2) X10^6/uL Hgb 16.1 H (12.0-16.0) g/dL Hct 48.8 H (36-46) % MCV 95.0 (80-100) fL MCH 31.3 (26-34) PG MCHC 32.9 (30-36) % RDW 14.4 (11.6-14.8) % Plt Count 558 H (150-400) X10^3/uL Neut % (Auto) 77.3 H (50-75) % Lymph % (Auto) 12.4 L (25-40) % Gates % (Auto) 8.3 (3-14) % Eos % (Auto) 1.2 L (2-4) % Baso % (Auto) 0.8 (0-2) % Neut # (Auto) 85054 H (5028-5808) /uL Lymph # (Auto) 1700 (1420-2454) /uL Gates # (Auto) 1100 H (0-900) /uL Eos # (Auto) 200 (0-450) /uL Baso # (Auto) 100 (0-100) /uL Sodium 139 (137-145) mmol/L Potassium 2.8 L (3.4-5.1) mmol/L Chloride 107 (98-107) mmol/L Carbon Dioxide 28 (22-32) mmol/L BUN 15 (7-17) mg/dL Creatinine 1.37 H (0.52-1.04) mg/dL Estimated GFR 41 L (>60) mL/min BUN/Creatinine Ratio 10.9 (6-22) Glucose 93 (80-110) mg/dL Calcium 9.2 (8.4-10.2) mg/dL Total Bilirubin 0.6 (0.2-1.3) mg/dL AST 45 H (14-36) IU/L ALT 41 H (<35) IU/L Alkaline Phosphatase 108 (38-126) U/L Total Protein 7.6 (6.3-8.2) g/dL Albumin 4.2 (3.5-5.0) g/dL Globulin 3.4 (1.7-4.1) g/dL Albumin/Globulin Ratio 1.2 (1.0-2.8) Imaging Data CT scan - head: Radiologist's Impression: [address] [address] [address] Scan Report Signed Patient: Yisel Cuevas MR#: [id number] : 1950 Acct:[id number] Age/Sex: 73 / F Date of Service: 05/06/24 Loc: ED Accession Number: [id number] Procedure: CT head/brain wo con Ordering Provider: Gurpreet Santiago PA-C PROCEDURE: CT HEAD/BRAIN WO CON INDICATIONS: r/o CVA TECHNIQUE: Noncontrast 4.5 mm thick angled axial sections acquired from the foramen magnum to the vertex, with coronal and sagittal reformats. For radiation dose reduction, the following was used: automated exposure control, adjustment of mA and/or kV according to patient size. COMPARISON: [facility], CT, CT HEAD/BRAIN WO CON, 02/02/2020, 12:25. FINDINGS: Image quality: Diagnostic. CSF spaces: Basal cisterns are patent. No extra-axial fluid collections. Mass effect on the right lateral ventricle. Sulcal effacement on the right. Brain: Heterogeneous masslike lesion within the right parietal occipital region near midline. The borders are not well defined by CT. This measures approximately 3.7 x 2.7 x 3.3 cm (AP by TV by cc). There is significant surrounding edema resulting in approximately 7 mm of leftward midline shift. There is an additional small area of edema within the left temporal lobe. There is cerebral volume loss for age, with resultant ventricular and sulcal prominence. There are periventricular and deep white matter chronic small vessel ischemic changes. There is intracranial internal carotid artery atherosclerosis. Skull and face: Calvarium and visualized facial bones appear intact, without suspicious lesions. Sinuses: Visualized sinuses and mastoids are clear. IMPRESSION: Likely mass within the right parietal occipital region measuring up to 3.7 cm with significant surrounding edema and 7 mm of leftward midline shift. Recommend MRI brain with without contrast for further evaluation. Small area of edema within the left temporal lobe, a 2nd lesion is likely in this region but not identified by CT. Findings were communicated to the ordering provider at the time of dictation. Dictated by: Salvatore Barraza M.D. on 05/06/2024 at 13:22 Approved by: Salvatore Barraza M.D. on 05/06/2024 at 13:28 MDM Narrative Medical decision making narrative: ED course: This is a 73-year-old female presenting to the emergency department due to chronic back pain per patient. Very poor historian. Daughter eventually came into the room to clarify. She states that her mother was here for a stroke rule out as she was other orthopedist 2 days ago and was ordered to have an urgent MRI due to falling to the left more frequently over the last 2 months. There were issues with the MRI process as the daughter did not know the model of the spine stimulator the mother has. Patient did receive an MRI about 2 weeks ago in the lumbar area. Initial workup included a non-con head CT which showed a right-sided mass with edema and midline shift. This was discussed with my attending physician who recommended Decadron and Keppra and an MRI with and without contrast. Lab work ordered to check baseline kidney function as there is some mentioned notes of renal failure although daughter states no history of renal failure. Lab work pending. Care was transferred to my attending physician, Dr. Shaffer for further management. CC: Back pain Complicating co-morbidities: As below Data collected from: Previous notes Medical records reviewed: Patient was seen 4 years ago due to SHAYNA. History of lung cancer, non-Hodgkin's lymphoma, hypertension, renal failure, thrombocytosis, former smoker, abdominal hernia, NSTEMI. History of CVA. Patient was diagnosed with a ureteral stone and transferred to [facility]. Also had an SHAYNA. Had an elevated white count and was given Zosyn. Differential considered, but not limited to: Cranial mass, subarachnoid hemorrhage, ischemic stroke Exam documented above, pertinent findings include: Delay in response to direction of left upper and lower motor function Lab Test results independently reviewed as above. Pertinent findings: Lab is pending Imaging studies independently reviewed: CT showed right-sided mass with midline shift and edema as well as a possible left-sided mass. Scores Used: None MIPS Elements: None Consultations: None Treatments: IV Keppra and Decadron Re-evaluations: None Discussion: Discussed current workup with family and attending physician. Diagnosis: Cranial mass Disposition: To be determined <Andrea Shaffer DO - Last Filed: 05/13/24 18:03> Lab Data Attestation: I reviewed the patient's lab results. Labs: Lab Results 05/06/24 Range/Units 13:58 WBC 13.6 H (4.5-11.0) X10^3/uL RBC 5.13 (4.0-5.2) X10^6/uL Hgb 16.1 H (12.0-16.0) g/dL Hct 48.8 H (36-46) % MCV 95.0 (80-100) fL MCH 31.3 (26-34) PG MCHC 32.9 (30-36) % RDW 14.4 (11.6-14.8) % Plt Count 558 H (150-400) X10^3/uL Neut % (Auto) 77.3 H (50-75) % Lymph % (Auto) 12.4 L (25-40) % Gates % (Auto) 8.3 (3-14) % Eos % (Auto) 1.2 L (2-4) % Baso % (Auto) 0.8 (0-2) % Neut # (Auto) 40129 H (1338-3579) /uL Lymph # (Auto) 1700 (3587-4110) /uL Gates # (Auto) 1100 H (0-900) /uL Eos # (Auto) 200 (0-450) /uL Baso # (Auto) 100 (0-100) /uL Sodium 139 (137-145) mmol/L Potassium 2.8 L (3.4-5.1) mmol/L Chloride 107 (98-107) mmol/L Carbon Dioxide 28 (22-32) mmol/L BUN 15 (7-17) mg/dL Creatinine 1.37 H (0.52-1.04) mg/dL Estimated GFR 41 L (>60) mL/min BUN/Creatinine Ratio 10.9 (6-22) Glucose 93 (80-110) mg/dL Calcium 9.2 (8.4-10.2) mg/dL Total Bilirubin 0.6 (0.2-1.3) mg/dL AST 45 H (14-36) IU/L ALT 41 H (<35) IU/L Alkaline Phosphatase 108 (38-126) U/L Total Protein 7.6 (6.3-8.2) g/dL Albumin 4.2 (3.5-5.0) g/dL Globulin 3.4 (1.7-4.1) g/dL Albumin/Globulin Ratio 1.2 (1.0-2.8) Imaging Data Brain MRI: Radiologist's Impression: PROCEDURE: MR HEAD/BRAIN WO/W CON INDICATIONS: f/u mass TECHNIQUE: Noncontrast axial T1 spin echo, axial T2 fast spin echo, sagittal and axial FLAIR, coronal T2 fast spin echo, axial gradient echo, axial diffusion and ADC through the brain. After the administration of contrast, axial and coronal and sagittal T1 spin echo with fat saturation through the brain. COMPARISON: [facility], MR, STROKE PROTOCOL, 05/15/2017, 8:40. [facility], CT, CT HEAD/BRAIN WO CON, 05/06/2024, 12:54. FINDINGS: Image quality: This examination is limited by involuntary motion artifact. CSF spaces: Basal cisterns are patent. No extra-axial fluid collections. Mass effect can be seen upon the posterior aspect of the left lateral ventricle. There is midline shift of 5 mm. Brain: There is an irregular, moderately enhancing mass seen within the right parietal region medially measuring 4 x 3 cm in greatest axial dimension, with a craniocaudal extent of the 3.6 cm. Significant surrounding vasogenic edema can be seen, with mass effect. No midline shift. There is cerebral volume loss for age. There is periventricular white matter chronic small vessel ischemic change. The brainstem appears normal. Diffusion-weighted images demonstrate no acute infarct. Normal intravascular flow voids are present. Skull and face: Calvarial marrow is normal in signal. Orbits appear normal. Note is made of bilateral lens replacements. Sinuses: Sinuses and mastoids appear clear. IMPRESSION: There is a 4 cm mass within the right parietal region. Surrounding vasogenic edema is seen, with mass effect, with narrowing of the posterior aspect of the right lateral ventricle and 5 mm midline shift. This study is significantly limited by motion artifact. If it would be helpful for clinical management decision making in this patient with this given history, please consider a dedicated repeat study when the patient is able to hold still for the examination. MDM Narrative Medical decision making narrative: ED course: This is a 73-year-old female presenting to the emergency department due to chronic back pain per patient. Very poor historian. Daughter eventually came into the room to clarify. She states that her mother was here for a stroke rule out as she was other orthopedist 2 days ago and was ordered to have an urgent MRI due to falling to the left more frequently over the last 2 months. There were issues with the MRI process as the daughter did not know the model of the spine stimulator the mother has. Patient did receive an MRI about 2 weeks ago in the lumbar area. Initial workup included a non-con head CT which showed a right-sided mass with edema and midline shift. This was discussed with my attending physician who recommended Decadron and Keppra and an MRI with and without contrast. Lab work ordered to check baseline kidney function as there is some mentioned notes of renal failure although daughter states no history of renal failure. Lab work pending. Care was transferred to my attending physician, Dr. Shaffer for further management. CC: Back pain Complicating co-morbidities: As below Data collected from: Previous notes Medical records reviewed: Patient was seen 4 years ago due to SHAYNA. History of lung cancer, non-Hodgkin's lymphoma, hypertension, renal failure, thrombocytosis, former smoker, abdominal hernia, NSTEMI. History of CVA. Patient was diagnosed with a ureteral stone and transferred to [facility]. Also had an SHAYNA. Had an elevated white count and was given Zosyn. Differential considered, but not limited to: Cranial mass, subarachnoid hemorrhage, ischemic stroke Exam documented above, pertinent findings include: Delay in response to direction of left upper and lower motor function Lab Test results independently reviewed as above. Pertinent findings: Lab is pending Imaging studies independently reviewed: CT showed right-sided mass with midline shift and edema as well as a possible left-sided mass. Scores Used: None MIPS Elements: None Consultations: None Treatments: IV Keppra and Decadron Re-evaluations: None Discussion: Discussed current workup with family and attending physician. Diagnosis: Cranial mass Disposition: To be determined Dr shaffer: Received turned over from a PC. Review patient's history and physical and workup up to this point. Patient does have a slight leukocytosis but I have low suspicion for an infection. She was at her baseline creatinine and GFR. Head CT concerning for mass with midline shift. This is confirmed by brain MRI which shows 4 cm right-sided mass with vasogenic edema and 5 mm shift. Prior to the MRI patient received 10 mg of Decadron and 1 g of Keppra. She was no history of seizures. Patient has chronic tingling in both of her hands. This is secondary to cervical spinal stenosis. She would surgery in December of this past year but her paresthesias in her upper extremities have only worsened. She was had at least several weeks (close to 2 months) of ataxia. Family reports she has been leaning to the left. She has been falling to the left. Has now had to use a walker because of this. She also reports dull headaches during this time and also pressure behind her right eye. She does feel like her symptoms have worsened over the past couple days. No lower extremity symptoms other than her baseline radiculopathy and paresthesias. She had a stroke per her report several years ago. No residual deficits from this. She was not anticoagulated. Has a history of hypertension but no history of coronary artery disease. [facility] has been contacted. Care turned over to Dr. Levine to discuss case with Neurosurgery and disposition. <Nickie Levine MD - Last Filed: 05/06/24 22:26> Lab Data Labs: Lab Results 05/06/24 Range/Units 13:58 WBC 13.6 H (4.5-11.0) X10^3/uL RBC 5.13 (4.0-5.2) X10^6/uL Hgb 16.1 H (12.0-16.0) g/dL Hct 48.8 H (36-46) % MCV 95.0 (80-100) fL MCH 31.3 (26-34) PG MCHC 32.9 (30-36) % RDW 14.4 (11.6-14.8) % Plt Count 558 H (150-400) X10^3/uL Neut % (Auto) 77.3 H (50-75) % Lymph % (Auto) 12.4 L (25-40) % Gates % (Auto) 8.3 (3-14) % Eos % (Auto) 1.2 L (2-4) % Baso % (Auto) 0.8 (0-2) % Neut # (Auto) 75678 H (2563-1413) /uL Lymph # (Auto) 1700 (8856-9477) /uL Gates # (Auto) 1100 H (0-900) /uL Eos # (Auto) 200 (0-450) /uL Baso # (Auto) 100 (0-100) /uL Sodium 139 (137-145) mmol/L Potassium 2.8 L (3.4-5.1) mmol/L Chloride 107 (98-107) mmol/L Carbon Dioxide 28 (22-32) mmol/L BUN 15 (7-17) mg/dL Creatinine 1.37 H (0.52-1.04) mg/dL Estimated GFR 41 L (>60) mL/min BUN/Creatinine Ratio 10.9 (6-22) Glucose 93 (80-110) mg/dL Calcium 9.2 (8.4-10.2) mg/dL Total Bilirubin 0.6 (0.2-1.3) mg/dL AST 45 H (14-36) IU/L ALT 41 H (<35) IU/L Alkaline Phosphatase 108 (38-126) U/L Total Protein 7.6 (6.3-8.2) g/dL Albumin 4.2 (3.5-5.0) g/dL Globulin 3.4 (1.7-4.1) g/dL Albumin/Globulin Ratio 1.2 (1.0-2.8) MDM Narrative Medical decision making narrative: ED course: This is a 73-year-old female presenting to the emergency department due to chronic back pain per patient. Very poor historian. Daughter eventually came into the room to clarify. She states that her mother was here for a stroke rule out as she was other orthopedist 2 days ago and was ordered to have an urgent MRI due to falling to the left more frequently over the last 2 months. There were issues with the MRI process as the daughter did not know the model of the spine stimulator the mother has. Patient did receive an MRI about 2 weeks ago in the lumbar area. Initial workup included a non-con head CT which showed a right-sided mass with edema and midline shift. This was discussed with my attending physician who recommended Decadron and Keppra and an MRI with and without contrast. Lab work ordered to check baseline kidney function as there is some mentioned notes of renal failure although daughter states no history of renal failure. Lab work pending. Care was transferred to my attending physician, Dr. Shaffer for further management. CC: Back pain Complicating co-morbidities: As below Data collected from: Previous notes Medical records reviewed: Patient was seen 4 years ago due to SHAYNA. History of lung cancer, non-Hodgkin's lymphoma, hypertension, renal failure, thrombocytosis, former smoker, abdominal hernia, NSTEMI. History of CVA. Patient was diagnosed with a ureteral stone and transferred to [facility]. Also had an SHAYNA. Had an elevated white count and was given Zosyn. Differential considered, but not limited to: Cranial mass, subarachnoid hemorrhage, ischemic stroke Exam documented above, pertinent findings include: Delay in response to direction of left upper and lower motor function Lab Test results independently reviewed as above. Pertinent findings: Lab is pending Imaging studies independently reviewed: CT showed right-sided mass with midline shift and edema as well as a possible left-sided mass. Scores Used: None MIPS Elements: None Consultations: None Treatments: IV Keppra and Decadron Re-evaluations: None Discussion: Discussed current workup with family and attending physician. Diagnosis: Cranial mass Disposition: To be determined Dr shaffer: Received turned over from a PC. Review patient's history and physical and workup up to this point. Patient does have a slight leukocytosis but I have low suspicion for an infection. She was at her baseline creatinine and GFR. Head CT concerning for mass with midline shift. This is confirmed by brain MRI which shows 4 cm right-sided mass with vasogenic edema and 5 mm shift. Prior to the MRI patient received 10 mg of Decadron and 1 g of Keppra. She was no history of seizures. Patient has chronic tingling in both of her hands. This is secondary to cervical spinal stenosis. She would surgery in December of this past year but her paresthesias in her upper extremities have only worsened. She was had at least several weeks (close to 2 months) of ataxia. Family reports she has been leaning to the left. She has been falling to the left. Has now had to use a walker because of this. She also reports dull headaches during this time and also pressure behind her right eye. She does feel like her symptoms have worsened over the past couple days. No lower extremity symptoms other than her baseline radiculopathy and paresthesias. She had a stroke per her report several years ago. No residual deficits from this. She was not anticoagulated. Has a history of hypertension but no history of coronary artery disease. [facility] has been contacted. Care turned over to Dr. Levine to discuss case with Neurosurgery and disposition. Dr. Levine - 1829 -care of patient is signed out to me by daytime physician. Independent review of patient and chart performed by myself. Patient has right- sided brain mass. Images has been sent to the [facility]. I discussed the case with Dr. Felix of neurosurgical services, who recommended patient be transferred. He has room available in the OR tomorrow and he requested the patient be sent down tonight for anticipated surgery tomorrow. Patient and family are aware of plan, they are in agreement. 2119 -patient transported via [facility] ED to ED [facility] Discharge Plan Departure Patient Disposition: [facility] Clinical Impression: Brain mass, Non-ST elevation (NSTEMI) myocardial infarction Prescriptions: No Action nitrofurantoin macrocrystal 100 mg capsule 100 mg PO BID Qty: 10 0RF Rx Instructions: must administer with a meal/food albuterol sulfate [ProAir HFA] 90 mcg/actuation HFA aerosol inhaler 2 inh inhalation Q8H PRN (Reason: shortness of breath or wheezing) 30 Days Qty: 8.5 1RF morphine [MS Contin] 30 MG tablet extended release 15 mg PO QAM Qty: 0 levothyroxine 88 MCG tablet 0.088 mg PO QAM Qty: 0 simvastatin [Zocor] 20 MG tablet 20 mg PO HS Qty: 0 amlodipine [Norvasc] 10 MG tablet 10 mg PO HS Qty: 0 diazepam [Valium] 5 MG tablet 2.5 - 5 mg PO Q8HP PRN (Reason: Anxiety) Qty: 0 topiramate [Topamax] 100 MG tablet 200 mg PO BID Qty: 0 omega 6-bzx-shv-fish oil [Fish Oil] 1,000 mg (120 mg-180 mg) Capsule 1,400 mg PO BID Qty: 0 aspirin 81 MG tablet,chewable 81 mg PO QDAY Qty: 0 [boswellia glucosamin] See Rx Instructions .ROUTE .COMPLEX Qty: 0 Rx Instructions: takes twice a day losartan 50 MG tablet 50 mg PO QDAY Qty: 0 venlafaxine 150 MG capsule,extended release 24hr 150 mg PO QDAY Qty: 0 calcium citrate-vitamin D3 [Citracal Regular] 250 mg-5 mcg (200 unit) Tablet 1,200 mg PO QDAY Qty: 0 multivitamin [Multiple Vitamins] 1 EACH tablet 1 tab PO QDAY Qty: 0 propranolol 120 MG capsule,extended release 24 hr 1 cap PO QDAY biotin 5 mg Capsule 10 mg PO DAILY hydrocodone-acetaminophen 10-325 mg Tablet 1 tab PO TID PRN (Reason: Breakthrough Pain) Referrals: Isa Denise ARNP [Primary Care Provider] - Stand Alone Forms: Patient Portal/API/Survey ED Sign-out <Andrea Shaffer DO - Last Filed: 05/13/24 18:03> Cosign ED Attending Cosignature Attestation: Dr Shaffer Co-Sign Statement: I was available for consultation during this patient's emergency department visit. This chart is signed by myself for administrative purposes only. I did not have direct contact with this patient during this visit. They were seen independently by the APC.
--- NOTE | 2024-05-06 12:43 | DI.CT.S_ITS ---
PROCEDURE: CT HEAD/BRAIN WO CON INDICATIONS: r/o CVA TECHNIQUE: Noncontrast 4.5 mm thick angled axial sections acquired from the foramen magnum to the vertex, with coronal and sagittal reformats. For radiation dose reduction, the following was used: automated exposure control, adjustment of mA and/or kV according to patient size. COMPARISON: [facility], CT, CT HEAD/BRAIN WO CON, 02/02/2020, 12:25. FINDINGS: Image quality: Diagnostic. CSF spaces: Basal cisterns are patent. No extra-axial fluid collections. Mass effect on the right lateral ventricle. Sulcal effacement on the right. Brain: Heterogeneous masslike lesion within the right parietal occipital region near midline. The borders are not well defined by CT. This measures approximately 3.7 x 2.7 x 3.3 cm (AP by TV by cc). There is significant surrounding edema resulting in approximately 7 mm of leftward midline shift. There is an additional small area of edema within the left temporal lobe. There is cerebral volume loss for age, with resultant ventricular and sulcal prominence. There are periventricular and deep white matter chronic small vessel ischemic changes. There is intracranial internal carotid artery atherosclerosis. Skull and face: Calvarium and visualized facial bones appear intact, without suspicious lesions. Sinuses: Visualized sinuses and mastoids are clear. IMPRESSION: Likely mass within the right parietal occipital region measuring up to 3.7 cm with significant surrounding edema and 7 mm of leftward midline shift. Recommend MRI brain with without contrast for further evaluation. Small area of edema within the left temporal lobe, a 2nd lesion is likely in this region but not identified by CT. Findings were communicated to the ordering provider at the time of dictation. Dictated by: Salvatore Barraza M.D. on 05/06/2024 at 13:22 Approved by: Salvatore Barraza M.D. on 05/06/2024 at 13:28
--- NOTE | 2024-05-06 13:34 | DI.MRI.S_ITS ---
PROCEDURE: MR HEAD/BRAIN WO/W CON INDICATIONS: f/u mass TECHNIQUE: Noncontrast axial T1 spin echo, axial T2 fast spin echo, sagittal and axial FLAIR, coronal T2 fast spin echo, axial gradient echo, axial diffusion and ADC through the brain. After the administration of contrast, axial and coronal and sagittal T1 spin echo with fat saturation through the brain. COMPARISON: [facility], MR, STROKE PROTOCOL, 05/15/2017, 8:40. [facility], CT, CT HEAD/BRAIN WO CON, 05/06/2024, 12:54. FINDINGS: Image quality: This examination is limited by involuntary motion artifact. CSF spaces: Basal cisterns are patent. No extra-axial fluid collections. Mass effect can be seen upon the posterior aspect of the left lateral ventricle. There is midline shift of 5 mm. Brain: There is an irregular, moderately enhancing mass seen within the right parietal region medially measuring 4 x 3 cm in greatest axial dimension, with a craniocaudal extent of the 3.6 cm. Significant surrounding vasogenic edema can be seen, with mass effect. No midline shift. There is cerebral volume loss for age. There is periventricular white matter chronic small vessel ischemic change. The brainstem appears normal. Diffusion-weighted images demonstrate no acute infarct. Normal intravascular flow voids are present. Skull and face: Calvarial marrow is normal in signal. Orbits appear normal. Note is made of bilateral lens replacements. Sinuses: Sinuses and mastoids appear clear. IMPRESSION: There is a 4 cm mass within the right parietal region. Surrounding vasogenic edema is seen, with mass effect, with narrowing of the posterior aspect of the right lateral ventricle and 5 mm midline shift. This study is significantly limited by motion artifact. If it would be helpful for clinical management decision making in this patient with this given history, please consider a dedicated repeat study when the patient is able to hold still for the examination. Dictated by: Juan Manuel Pink M.D. on 05/06/2024 at 16:17 Approved by: Juan Manuel Pink M.D. on 05/06/2024 at 16:21
[2024-05-06 14:05] LABS: Add Manual Diff / Slide Review NO; Basophils Absolute Auto 100 /uL (0-100); Basophils Percent Auto 0.8 % (0-2); Eosinophils Absolute Auto 200 /uL (0-450); Eosinophils Percent Auto 1.2 % (2-4); Hematocrit 48.8 % (36-46); Hemoglobin 16.1 g/dL (12.0-16.0); Lymphocytes Absolute Auto 1700 /uL (1100-4500); Lymphocytes Percent Auto 12.4 % (25-40); Mean Corpuscular HGB Conc 32.9 % (30-36); Mean Corpuscular Hemoglobin 31.3 PG (26-34); Monocytes Absolute Auto 1100 /uL (0-900); Monocytes Percent Auto 8.3 % (3-14); Neutrophils Absolute Auto 10500 /uL (1500-7000); Neutrophils Percent Auto 77.3 % (50-75); Platelet Count 558 X10^3/uL (150-400); Red Blood Cell Count 5.13 X10^6/uL (4.0-5.2); Red Cell Distribution Width 14.4 % (11.6-14.8); White Blood Cell Count 13.6 X10^3/uL (4.5-11.0)
[2024-05-06] MEDS: DEXAMETHASONE 10 MG/ML VIAL IV (14:14)
[2024-05-06] MEDS: levETIRAcetam 1,000 MG in SODIUM CHLORIDE 0.9% 100 ML 440 MG IV (14:14)
[2024-05-06 14:22] LABS: Alanine Aminotransferase 41 IU/L (<35); Albumin 4.2 g/dL (3.5-5.0); Albumin Globulin Ratio 1.2 (1.0-2.8); Alkaline Phosphatase 108 U/L (38-126); Aspartate Aminotransferase 45 IU/L (14-36); BUN Creatinine Ratio 10.9 (6-22); Bilirubin Total 0.6 mg/dL (0.2-1.3); Blood Urea Nitrogen 15 mg/dL (7-17); Calcium 9.2 mg/dL (8.4-10.2); Carbon Dioxide 28 mmol/L (22-32); Chloride 107 mmol/L (98-107); Estimated Glomerular Filt Rate 41 mL/min (>60); Globulin 3.4 g/dL (1.7-4.1); Glucose 93 mg/dL (80-110); HEMOLYSIS < 15 (0-50); Potassium 2.8 mmol/L (3.4-5.1); Sodium 139 mmol/L (137-145); Total Protein 7.6 g/dL (6.3-8.2)
--- NOTE | 2024-05-06 17:36 | PC.NURSE ---
Transfer request created at 1730 with [facility] neurosurg consult. Images pushed and face sheet faxed.
[2024-05-06] MEDS: MORPHINE 4 MG/ML INJ IV (19:06)
--- NOTE | 2024-05-06 21:15 | PC.NURSE ---
Pt up to BR with assist and WC, pt being transferred to higher level of care. S/P CT/MRI of head with mass found and midline shift noted.
== END 2024-05-06 21:35 | disposition short-term general hospital (02) ==
PROVIDERS: Physician Assistant Medical; Emergency Provider Emergency Medicine; PCP Nurse Practitioner Family
DX: I21.4 Non-ST elevation (NSTEMI) myocardial infarction (principal); G93.89 Other specified disorders of brain; G93.6 Cerebral edema; Z87.891 Personal history of nicotine dependence; Z98.890 Other specified postprocedural states
CPT/HCPCS: 36415; 70450; 70553; 80053; 85025; 96365; 96375; 99284; 99285; A9579; J1100; J1953; J2270

== ENCOUNTER 2025-03-01 16:43 | Inpatient (IN) | payer MEDICARE, OTHER, SELFPAY ==
[2025-03-01] VITALS (21 sets, daily range): BP systolic 91–119; BP diastolic 56–71; PULSE 79–112; RESP 16–26; TEMP 36.6; O2SAT 83–95; BMI 19.8
--- NOTE | 2025-03-01 17:14 | ED.HA ---
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 Information was mostly obtained from daughter at bedside. Other than what is stated 14 point review of system is negative. Related Data Home Medications ?Medication ?Instructions ?Recorded ?Confirmed amlodipine 10 mg tablet (Norvasc) 10 mg PO HS ##0 04/03/12 02/02/20 diazepam 5 mg tablet (Valium) 2.5 - 5 mg PO Q8HP PRN Anxiety ##0 04/03/12 02/02/20 levothyroxine 88 mcg tablet 0.088 mg PO QAM ##0 04/03/12 02/02/20 morphine 30 mg tablet,extended 15 mg PO QAM ##0 04/03/12 02/02/20 release (MS Contin) simvastatin 20 mg tablet (Zocor) 20 mg PO HS ##0 04/03/12 02/02/20 omega 8-ccw-qvj-fish oil 1,000 mg 1,400 mg PO BID ##0 08/05/12 02/02/20 (120 mg-180 mg) capsule (Fish Oil) topiramate 100 mg tablet (Topamax) 200 mg PO BID ##0 08/05/12 02/02/20 [boswellia glucosamin] See Rx Instructions .Route 08/10/17 02/02/20 .COMPLEX ##0 aspirin 81 mg chewable tablet 81 mg PO QDAY ##0 08/10/17 02/02/20 losartan 50 mg tablet 50 mg PO QDAY ##0 08/10/17 02/02/20 venlafaxine 150 mg 150 mg PO QDAY ##0 08/10/17 02/02/20 capsule,extended release 24 hr calcium 250 mg (as 1,200 mg PO QDAY ##0 08/12/17 02/02/20 citrate)-vitamin D3 5 mcg (200 unit) tablet (Citracal Regular) multivitamin (Multiple Vitamins 1 tab PO QDAY ##0 08/12/17 02/02/20 tablet) propranolol 120 mg capsule,24 1 cap PO QDAY 11/11/17 02/02/20 hr,extended release biotin 5 mg capsule 10 mg PO DAILY 07/21/18 02/02/20 hydrocodone 10 mg-acetaminophen 1 tab PO TID PRN Breakthrough Pain 02/02/20 02/02/20 325 mg tablet Previous Rx's ?Medication ?Instructions ?Recorded albuterol sulfate 90 mcg/actuation 2 inh inhalation Q8H PRN shortness 06/06/22 aerosol inhaler (ProAir HFA) of breath or wheezing 30 days #8.5 grams nitrofurantoin macrocrystal 100 mg 100 mg PO BID #10 caps 06/06/22 capsule Allergies Allergy/AdvReac Type Severity Reaction Status Date / Time latex Allergy Intermediate HIVES Verified 03/01/25 21:37 adhesive Allergy Mild HIVES Verified 03/01/25 21:37 [place] bupropion (From WELLBUTRIN) Allergy Mild Verified 03/01/25 21:37 cephalexin (From KEFLEX) Allergy Mild Verified 03/01/25 21:37 gabapentin (From NEURONTIN) Allergy Mild Verified 03/01/25 21:37 pregabalin (From LYRICA) Allergy Mild Verified 03/01/25 21:37 indomethacin (INDOMETHACIN) AdvReac Intermediate MEMORY Verified 03/01/25 21:37 ISSUES Review of Systems Review of Systems ROS Unobtainable: All systems reviewed & are unremarkable except as noted in HPI and below Patient History Medical History (Updated 03/01/25 @ 21:11 by Ernie Maldonado MD) CVA (cerebral vascular accident) Social History household members: spouse Smoking Status: Former smoker alcohol intake frequency: other Exam Narrative Exam Narrative: GENERAL: [74] year old patient appears stated age. Well-developed patient, in mild distress. HEAD: Atraumatic. Normocephalic. EYES: Pupils equal round and reactive. Extraocular motions intact. No scleral icterus. No injection or drainage. ENT: Nose without bleeding, purulent drainage. Throat without erythema, tonsillar hypertrophy or exudate. Airway patent. NECK: Trachea midline. Non tender CARDIOVASCULAR: Regular rate and rhythm without murmurs, gallops, or rubs. RESPIRATORY: Decreased breath sounds wheezes throughout GASTROINTESTINAL: Abdomen soft, non-tender, nondistended. EXTREMITIES: No edema or joint tenderness. BACK: Nontender without deformity or crepitance. No flank tenderness. NEURO: AOx3. SKIN: No rash or erythema of visible areas Initial Vital Signs Initial Vital Signs: Vital Signs Temperature 97.9 F 03/01/25 16:58 Pulse Rate 112 H 03/01/25 16:58 Respiratory Rate 22 03/01/25 16:58 Blood Pressure 116/67 03/01/25 16:58 Pulse Oximetry 93 03/01/25 16:58 Oxygen Delivery Method Room Air 03/01/25 16:58 Course Vital Signs Vital signs: Vital Signs - 8 hr 03/01/25 16:58 Temperature 97.9 F Pulse Rate 112 H Respiratory Rate 22 Blood Pressure 116/67 Pulse Oximetry 93 Oxygen Delivery Method Room Air MDM - Headache Imaging Data Chest x-ray: Radiologist's Impression: [address] [address] XRay Report Signed Patient: Yisel Cuevas MR#: [id number] : 1950 Acct:[id number] Age/Sex: 74 / F Date of Service: 03/01/25 Loc: ED Accession Number: [id number] Procedure: XR chest 1V Ordering Provider: Talon Preciado D.O. PROCEDURE: XR CHEST 1V INDICATIONS: headache hx of brain ca TECHNIQUE: One view of the chest was acquired. COMPARISON: [facility], CT, CT CHEST ABDOMEN PELVIS WITH CONTRAST, 08/30/2024, 15:22. [facility], CR, XR CHEST 1V, 02/02/2020, 11:47. [facility], CR, XR CHEST 1V, 05/22/2019, 19:20. FINDINGS: Surgical changes and devices: None. Lungs and pleura: Low lung volumes bilaterally. Mild right basilar opacity. No pleural effusions or pneumothorax. Mediastinum: Mediastinal contours appear normal. Heart size is normal. Bones and chest wall: No suspicious bony lesions. Overlying soft tissues appear unremarkable. IMPRESSION: Low lung volumes bilaterally. Right basilar opacity may be secondary to atelectasis, aspiration, or pneumonia. CT scan - head: Radiologist's Impression: [address] [address] [address] Scan Report Signed Patient: Yisel Cuevas MR#: [id number] : 1950 Acct:[id number] Age/Sex: 74 / F Date of Service: 03/01/25 Loc: ED Accession Number: [id number] Procedure: CT head/brain wo con Ordering Provider: Talon Preciado D.O. PROCEDURE: CT HEAD/BRAIN WO CON INDICATIONS: headache hx of brain ca TECHNIQUE: Noncontrast 4.5 mm thick angled axial sections acquired from the foramen magnum to the vertex, with coronal and sagittal reformats. For radiation dose reduction, the following was used: automated exposure control, adjustment of mA and/or kV according to patient size. COMPARISON: [facility], MR, MR HEAD/BRAIN WO/W CON, 05/06/2024, 16:42. [facility], CT, CT HEAD/BRAIN WO CON, 05/06/2024, 12:54. [facility], CT, CT HEAD/BRAIN WO CON, 02/02/2020, 12:25. FINDINGS: Image quality: Diagnostic. CSF spaces: Basal cisterns are patent. No extra-axial fluid collections. The ventricles are symmetric in size and shape. Brain: No acute intracranial hemorrhage or mass effect. Postsurgical changes from prior partial resection of the right occipital lobe in the adjacent chronic encephalomalacia. Small area of hypoattenuation again seen in the left posterior temporal lobe that does not appear significantly changed. No significant mass effect or midline shift. There is cerebral volume loss, with resultant ventricular and sulcal prominence. There are periventricular and deep white matter chronic small vessel ischemic changes. There is intracranial internal carotid artery atherosclerosis. Skull and face: Right parieto-occipital craniotomy changes. Calvarium and visualized facial bones otherwise appear intact, without suspicious lesions. Sinuses: Visualized sinuses and mastoids are clear. IMPRESSION: Postsurgical changes from right parieto-occipital craniotomy and resection of the prior mass. No acute intracranial hemorrhage or mass effect. CTA - brain/neck: Radiologist's Impression: [address] [address] [address] Scan Report Signed Patient: Yisel Cuevas MR#: [id number] : 1950 Acct:[id number] Age/Sex: 74 / F Date of Service: 03/01/25 Loc: ED Accession Number: [id number] Procedure: CT angio head and neck Ordering Provider: Talon Preciado D.O. PROCEDURE: CT ANGIO HEAD AND NECK INDICATIONS: headache hx of brain ca TECHNIQUE: After the administration of intravenous contrast, 1 mm thick sections acquired from the aortic arch through the [place] of [place]. 3-dimensional khjzndk-anvuvkpgk-mgajhnstly (MIP) and/or volume rendering reformats were acquired of the central intracranial vasculature and neck separately. For radiation dose reduction, the following was used: automated exposure control, adjustment of mA and/or kV according to patient size. COMPARISON: [facility], MR, MR HEAD/BRAIN WO/W CON, 05/06/2024, 16:42. [facility], CT, CT HEAD/BRAIN WO CON, 03/01/2025, 17:46. FINDINGS: Image quality: Diagnostic. Cerebral CT Angiogram: Internal carotid arteries: No acute findings. Intracranial ICA are patent with no significant stenosis. No occlusion. No aneurysm. Anterior cerebral arteries: Unremarkable. No significant stenosis. No occlusion. No aneurysm. Middle cerebral arteries: Unremarkable. No significant stenosis. No occlusion. No aneurysm. Posterior cerebral arteries: Unremarkable. No significant stenosis. No occlusion. No aneurysm. Basilar artery: Unremarkable. No significant stenosis. No occlusion. No aneurysm. Vertebral arteries: Unremarkable as visualized. Dural venous sinuses: Unremarkable given phase of enhancement. Other: Please see the separately dictated report from the noncontrast CT of the head performed at the same time. No abnormal intracranial arterial-phase enhancement.. Neck CT Angiogram: Internal carotid arteries: Unremarkable. No significant stenosis. No dissection or occlusion. Common carotid arteries: Unremarkable. No significant stenosis. No dissection or occlusion. External carotid arteries: Unremarkable. No occlusion. Vertebral arteries: Unremarkable. No significant stenosis. No dissection or occlusion. Aortic Arch and Mediastinum: Partially visualized aortic arch unremarkable without evidence of aneurysm. Origins of the great vessels unremarkable. Other: Postsurgical changes in the midcervical spine with superimposed cervical spondylosis. IMPRESSION: No significant intracranial arterial abnormality is seen. No significant abnormality is seen within the arteries of the neck. Any quantitative measurements of stenosis were performed using NASCET criteria. ECG Data Interpretation: Sinus Tach HR 108 AZ 132 QRS [address]-t wave change No previous EKG to compare MDM Narrative Medical decision making narrative: All lab work, vital signs, nurse triage note, medication list, previous ER visits, and all imaging studies reviewed. Chest x-ray showed low lung volumes bilaterally. Right basilar opacity may be secondary to atelectasis aspiration or pneumonia. CT head and neck from right parietal occipital craniotomy and resection of the prior mass no acute intracranial hemorrhage or mass effect. CT head and neck showed no significant intracranial arterial abnormality seen. No significant MR abnormality seen with the arms of the neck. Patient given DuoNeb, Solu-Medrol, Rocephin, Zithromax. Differential diagnosis COPD exacerbation, pneumonia, sepsis, hemorrhage. Case d/w hospitalist who has graciously accepted the patient for inpatient admission. WBC 2.2 hemoglobin 13.2 hematocrit 41.1 platelet 421 sodium 141 potassium 3.6 chloride 110 CO2 23 BUN 22 creatinine 1.24 lactic acid 2.2 troponin 1st set 0.012nd set 0.031 BNP 991 COVID flu RSV negative Discharge Plan Departure Patient Disposition: Admitted As Inpatient Clinical Impression: COPD with acute exacerbation, Pneumonia Admit Date/Time: 03/01/25 20:43 Admit Provider: Ernie Garcia
--- NOTE | 2025-03-01 17:15 | DI.RAD.S_ITS ---
PROCEDURE: XR CHEST 1V INDICATIONS: headache hx of brain ca TECHNIQUE: One view of the chest was acquired. COMPARISON: [facility], CT, CT CHEST ABDOMEN PELVIS WITH CONTRAST, 08/30/2024, 15:22. [facility], CR, XR CHEST 1V, 02/02/2020, 11:47. [facility], CR, XR CHEST 1V, 05/22/2019, 19:20. FINDINGS: Surgical changes and devices: None. Lungs and pleura: Low lung volumes bilaterally. Mild right basilar opacity. No pleural effusions or pneumothorax. Mediastinum: Mediastinal contours appear normal. Heart size is normal. Bones and chest wall: No suspicious bony lesions. Overlying soft tissues appear unremarkable. IMPRESSION: Low lung volumes bilaterally. Right basilar opacity may be secondary to atelectasis, aspiration, or pneumonia. Approved by: Torsten Celeste M.D. on 03/01/2025 at 18:30
[2025-03-01 17:33] LABS: Add Manual Diff / Slide Review NO; Hematocrit 41.1 % (36-46); Hemoglobin 13.2 g/dL (12.0-16.0); Lymphocytes Absolute Auto 100 /uL (1100-4500); Mean Corpuscular HGB Conc 32.0 % (30-36); Mean Corpuscular Hemoglobin 31.7 PG (26-34); Mean Corpuscular Volume 99.0 fL (80-100); Platelet Count 421 X10^3/uL (150-400)
[2025-03-01 17:54] LABS: NT-proBNP (BNP-Adult 18+) 991 pg/mL (<125); Troponin I 0.013 ng/mL (0.01-0.034)
[2025-03-01 17:58] LABS: Alanine Aminotransferase 116 IU/L (<35); Albumin 3.9 g/dL (3.5-5.0); Albumin Globulin Ratio 1.3 (1.0-2.8); Alkaline Phosphatase 86 U/L (38-126); Blood Urea Nitrogen 22 mg/dL (7-17); Calcium 9.0 mg/dL (8.4-10.2); Carbon Dioxide 23 mmol/L (22-32); Chloride 110 mmol/L (98-107); Estimated Glomerular Filt Rate 46 mL/min (>60); Globulin 2.9 g/dL (1.7-4.1); Glucose 75 mg/dL (70-99); HEMOLYSIS < 15 (0-50); Potassium 3.6 mmol/L (3.4-5.1); Sodium 141 mmol/L (137-145); Total Protein 6.8 g/dL (6.3-8.2)
--- NOTE | 2025-03-01 18:02 | EKG_ITS ---
[place] [id number] [place] [address] Test Date: 2025-03-01 Pat Name: Yisel Cuevas Department: Room: Gender: Female Clay Modeler: JOSE ROBERTO : 1950 Requested By: Order Number: [id number] Reading MD: Talon Grayson MD Measurements Intervals [place] Rate: 108 P: 102 NC: 132 QRS: 54 QRSD: 72 T: 212 QT: 332 QTc: 444 Interpretive Statements Sinus tachycardia ST & T wave abnormality, consider inferior ischemia ST & T wave abnormality, consider anterolateral ischemia NO SIGNIFICANT CHANGE FROM PRIOR TRACING Electronically Signed On 03-02-2025 7:31:41 PDT by Talon Grayson MD
[2025-03-01 18:08] LABS: Lipase 118 U/L (23-300); Magnesium 2.2 mg/dL (1.6-2.3)
[2025-03-01 20:37] LABS: Base Excess VBG -3.4 mmol/L (0-4); HCO3 VBG 22 mmol/L (24-28); Oxygen Saturation VBG 80 % (70-75); PCO2 VBG 38.8 mmHg (45-50); PO2 VBG 46 mmHg (35-45); Total CO2 VBG 21 mmol/L (24-29); pH VBG 7.36 (7.33-7.43)
[2025-03-01] MEDS: methylPREDNISolone succ 125 MG/2 ML VIAL IV (20:39)
[2025-03-01] MEDS: ALBUTEROL/IPRATROPIUM 3 ML AMPUL INH (20:55)
[2025-03-01 20:57] LABS: Lactate (Lactic Acid) 2.2 mmol/L (0.7-2.1)
--- NOTE | 2025-03-01 21:08 | PM.HP.1 ---
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 Information was mostly obtained from daughter at bedside. Other than what is stated 14 point review of system is negative. Additional medical history of craniotomy for tumor excision, HTN, anxiety, depression, hypothyroidism, Hx of NSTEMI. She feels worse dyspnea then usual and feels fatigued. Wheezy and needs oxygen to saturate in 90-ies. She does not have chest pain or headache. Treated with steroid, antibiotic and inhaled bronchodilators and admitted with PNA and COPD exacerbation and acute hypoxemia. [facility] Medical History (Updated 03/01/25 @ 21:11 by Ernie Maldonado MD) CVA (cerebral vascular accident) Social History household members: spouse Smoking Status: Former smoker Meds Home Medications and Allergies Home Medications ?Medication ?Instructions ?Recorded ?Confirmed ?Type amlodipine 10 mg tablet (Norvasc) 10 mg PO HS ##0 04/03/12 02/02/20 History diazepam 5 mg tablet (Valium) 2.5 - 5 mg PO Q8HP PRN Anxiety ##0 04/03/12 02/02/20 History levothyroxine 88 mcg tablet 0.088 mg PO QAM ##0 04/03/12 02/02/20 History morphine 30 mg tablet,extended 15 mg PO QAM ##0 04/03/12 02/02/20 History release (MS Contin) simvastatin 20 mg tablet (Zocor) 20 mg PO HS ##0 04/03/12 02/02/20 History omega 4-rva-ngm-fish oil 1,000 mg 1,400 mg PO BID ##0 08/05/12 02/02/20 History (120 mg-180 mg) capsule (Fish Oil) topiramate 100 mg tablet (Topamax) 200 mg PO BID ##0 08/05/12 02/02/20 History [boswellia glucosamin] See Rx Instructions .Route 08/10/17 02/02/20 History .COMPLEX ##0 aspirin 81 mg chewable tablet 81 mg PO QDAY ##0 08/10/17 02/02/20 History losartan 50 mg tablet 50 mg PO QDAY ##0 08/10/17 02/02/20 History venlafaxine 150 mg 150 mg PO QDAY ##0 08/10/17 02/02/20 History capsule,extended release 24 hr calcium 250 mg (as 1,200 mg PO QDAY ##0 08/12/17 02/02/20 History citrate)-vitamin D3 5 mcg (200 unit) tablet (Citracal Regular) multivitamin (Multiple Vitamins 1 tab PO QDAY ##0 08/12/17 02/02/20 History tablet) propranolol 120 mg capsule,24 1 cap PO QDAY 11/11/17 02/02/20 History hr,extended release biotin 5 mg capsule 10 mg PO DAILY 07/21/18 02/02/20 History hydrocodone 10 mg-acetaminophen 1 tab PO TID PRN Breakthrough Pain 02/02/20 02/02/20 History 325 mg tablet albuterol sulfate 90 mcg/actuation 2 inh inhalation Q8H PRN shortness 06/06/22 06/06/22 Rx aerosol inhaler (ProAir HFA) of breath or wheezing 30 days #8.5 grams nitrofurantoin macrocrystal 100 mg 100 mg PO BID #10 caps 06/06/22 06/06/22 Rx capsule Allergies Allergy/AdvReac Type Severity Reaction Status Date / Time latex Allergy Intermediate HIVES Verified 03/01/25 21:37 adhesive Allergy Mild HIVES Verified 03/01/25 21:37 [place] bupropion (From WELLBUTRIN) Allergy Mild Verified 03/01/25 21:37 cephalexin (From KEFLEX) Allergy Mild Verified 03/01/25 21:37 gabapentin (From NEURONTIN) Allergy Mild Verified 03/01/25 21:37 pregabalin (From LYRICA) Allergy Mild Verified 03/01/25 21:37 indomethacin (INDOMETHACIN) AdvReac Intermediate MEMORY Verified 03/01/25 21:37 ISSUES Review of Systems Review of Systems Narrative: General - w/o fever or chills, feels tired, fatigued RS - short of breath, wheezy CVS - w/o chest pain Neuro - w/o acute deficits Exam Vital Signs (past 8 hours): - 03/01/25 16:58 03/01/25 20:55 Temperature 97.9 F Pulse Rate 112 H 86 Respiratory Rate 22 18 Blood Pressure 116/67 Pulse Oximetry 93 95 Oxygen Delivery Method Room Air Room Air Fraction of Inspired Oxygen 21 Fraction of Inspired Oxygen 21 SaO2/FiO2 Ratio 428 Oxygen Delivery Method Room Air Narrative Exam Narrative: General - in no distress, improved breathing HEENT - normocephalic, oxygen via NC, supple neck RS - decreased airflow b/l with wheezing CVS - tachycardic, regular Abd - not distended Ext - w/o swelling Neuro - lucid, normal mood and affect Objective ECG Impression: Sinus tachycardia Imaging Chest x-ray: Radiologist's impression: Low lung volumes bilaterally. Right basilar opacity may be secondary to atelectasis, aspiration, or pneumonia. CT scan - head: Radiologist's impression: Postsurgical changes from right parieto-occipital craniotomy and resection of the prior mass. No acute intracranial hemorrhage or mass effect. Labs 03/01/25 16:25 03/01/25 16:25 Labs: Laboratory Results - last 24 hr 03/01/25 03/01/25 16:25 20:33 WBC 2.2 L RBC 4.15 Hgb 13.2 Hct 41.1 MCV 99.0 MCH 31.7 MCHC 32.0 RDW 17.0 H Plt Count 421 H Neut % (Auto) 92.9 H Lymph % (Auto) 5.1 L [place] % (Auto) 1.6 L Eos % (Auto) 0.3 L Baso % (Auto) 0.1 Neut # (Auto) 2100 Lymph # (Auto) 100 L [place] # (Auto) 0 Eos # (Auto) 0 Baso # (Auto) 0 VBG pH 7.36 VBG pCO2 38.8 L VBG pO2 46 H VBG HCO3 22 L VBG Total CO2 21 L VBG O2 Saturation 80 H VBG Base Excess -3.4 L FiO2 % 21.0 % Sodium 141 Potassium 3.6 Chloride 110 H Carbon Dioxide 23 BUN 22 H Creatinine 1.24 H Estimated GFR 46 L BUN/Creatinine Ratio 17.7 Glucose 75 Lactate 2.2 H Calcium 9.0 Magnesium 2.2 Total Bilirubin 0.3 AST 243 H ALT 116 H Alkaline Phosphatase 86 Troponin I 0.013 NT-Pro-B Natriuret Pep 991 H Total Protein 6.8 Albumin 3.9 Globulin 2.9 Albumin/Globulin Ratio 1.3 Lipase 118 Assessment & Plan Assessment and plan (1) Pneumonia: Status: Acute (2) COPD with acute exacerbation: Status: Acute (3) Carcinoma, lung: Status: Acute Assessment & Plan narrative: Pneumonia / stage 4 jc carcinoma with brain metastases - Rocephin, Zithromax - bronchodilators, Mucinex - prednisone Acute hypoxemic respiratory failure - oxygen Chronic pain / opiate use - MS Contin, Dolphin - related to metastatic lung carcinoma Hypothyroidism - levothyroxine Anxiety / Depression - prn lorazepam - Effexor, Topamax, propranolol DVT prophylaxis - Lovenox GI prophylaxis - Pepcid Patient consented to telemedicine, audio-visual encounter with RN assisting with the exam. Patient located at [place], [place], provider located in [place]. Time-Based Coding :: [TOTAL MINUTES] spent with patient and on the chart (including review of chart, obtaining history, exam, reviewing outside data, placing orders, documenting exam and treatment plan, and counseling patient) on [DATE].
[2025-03-01 21:29] LABS: Influenza A - CEPHEID Flu A NEGATIVE (NEGATIVE); Influenza B - CEPHEID Flu B NEGATIVE (NEGATIVE)
[2025-03-01 21:30] LABS: COVID-19 CEPHEID 4-PLEX PCR Negative (Negative)
[2025-03-01] MEDS: AZITHROMYCIN 500 MG in DEXTROSE 5% IN WATER 250 ML 250 MG IV (21:30)
[2025-03-01 21:32] LABS: Troponin I 0.031 ng/mL (0.01-0.034)
[2025-03-01 22:14] LABS: Reflexed Lactate in 2 Hours Y
[2025-03-01 23:27] LABS: Lactate 2HR (Lactic Acid Rflx) 2.7 mmol/L (0.7-2.1)
[2025-03-02] VITALS (29 sets, daily range): BP systolic 85–137; BP diastolic 51–89; PULSE 72–82; RESP 18–32; TEMP 36.7–37; O2SAT 90–97
--- NOTE | 2025-03-02 00:49 | PM.HP.1 ---
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 appointment today oncologist whereby she got a flu shot after she arrived home today she felt weak short of breath with no energy brought in via EMS for further evaluation. Information was mostly obtained from daughter at bedside. Other than what is stated 14 point review of system is negative. Additional medical history of craniotomy for tumor excision, HTN, anxiety, depression, hypothyroidism, Hx of NSTEMI. She feels worse dyspnea then usual and feels fatigued. Wheezy and needs oxygen to saturate in 90-ies. She does not have chest pain or headache. Treated with steroid, antibiotic and inhaled bronchodilators and admitted with PNA and COPD exacerbation and acute hypoxemia. [facility] Medical History (Updated 03/01/25 @ 21:11 by Ernie Maldonado MD) CVA (cerebral vascular accident) Social History household members: spouse Smoking Status: Former smoker Meds Home Medications and Allergies Home Medications ?Medication ?Instructions ?Recorded ?Confirmed ?Type amlodipine 10 mg tablet (Norvasc) 10 mg PO HS ##0 04/03/12 02/02/20 History diazepam 5 mg tablet (Valium) 2.5 - 5 mg PO Q8HP PRN Anxiety ##0 04/03/12 02/02/20 History levothyroxine 88 mcg tablet 0.088 mg PO QAM ##0 04/03/12 02/02/20 History morphine 30 mg tablet,extended 15 mg PO QAM ##0 04/03/12 02/02/20 History release (MS Contin) simvastatin 20 mg tablet (Zocor) 20 mg PO HS ##0 04/03/12 02/02/20 History omega 9-twd-mqh-fish oil 1,000 mg 1,400 mg PO BID ##0 08/05/12 02/02/20 History (120 mg-180 mg) capsule (Fish Oil) topiramate 100 mg tablet (Topamax) 200 mg PO BID ##0 08/05/12 02/02/20 History [boswellia glucosamin] See Rx Instructions .Route 08/10/17 02/02/20 History .COMPLEX ##0 aspirin 81 mg chewable tablet 81 mg PO QDAY ##0 08/10/17 02/02/20 History losartan 50 mg tablet 50 mg PO QDAY ##0 08/10/17 02/02/20 History venlafaxine 150 mg 150 mg PO QDAY ##0 08/10/17 02/02/20 History capsule,extended release 24 hr calcium 250 mg (as 1,200 mg PO QDAY ##0 08/12/17 02/02/20 History citrate)-vitamin D3 5 mcg (200 unit) tablet (Citracal Regular) multivitamin (Multiple Vitamins 1 tab PO QDAY ##0 08/12/17 02/02/20 History tablet) propranolol 120 mg capsule,24 1 cap PO QDAY 11/11/17 02/02/20 History hr,extended release biotin 5 mg capsule 10 mg PO DAILY 07/21/18 02/02/20 History hydrocodone 10 mg-acetaminophen 1 tab PO TID PRN Breakthrough Pain 02/02/20 02/02/20 History 325 mg tablet albuterol sulfate 90 mcg/actuation 2 inh inhalation Q8H PRN shortness 06/06/22 06/06/22 Rx aerosol inhaler (ProAir HFA) of breath or wheezing 30 days #8.5 grams nitrofurantoin macrocrystal 100 mg 100 mg PO BID #10 caps 06/06/22 06/06/22 Rx capsule Allergies Allergy/AdvReac Type Severity Reaction Status Date / Time latex Allergy Intermediate HIVES Verified 03/01/25 21:37 adhesive Allergy Mild HIVES Verified 03/01/25 21:37 [place] bupropion (From WELLBUTRIN) Allergy Mild Verified 03/01/25 21:37 cephalexin (From KEFLEX) Allergy Mild Verified 03/01/25 21:37 gabapentin (From NEURONTIN) Allergy Mild Verified 03/01/25 21:37 pregabalin (From LYRICA) Allergy Mild Verified 03/01/25 21:37 indomethacin (INDOMETHACIN) AdvReac Intermediate MEMORY Verified 03/01/25 21:37 ISSUES Review of Systems Review of Systems Narrative: General - feels fatigued, w/o rigors or fever RS - short of breath, wheezy CVS - w/o chest pain or palpitations Exam Vital Signs (past 8 hours): - 03/01/25 16:50 03/01/25 16:51 03/01/25 16:51 Temperature Pulse Rate 111 H 111 H Respiratory Rate Blood Pressure 116/67 Pulse Oximetry 93 92 Oxygen Delivery Method Oxygen Flow Rate Fraction of Inspired Oxygen 03/01/25 16:52 03/01/25 16:52 03/01/25 16:58 Temperature 97.9 F Pulse Rate 111 H 112 H Respiratory Rate 22 Blood Pressure 114/64 116/67 Pulse Oximetry 93 93 Oxygen Delivery Method Room Air Oxygen Flow Rate Fraction of Inspired Oxygen 03/01/25 17:00 03/01/25 17:00 03/01/25 17:15 Temperature Pulse Rate 111 H 112 H Respiratory Rate 24 26 H Blood Pressure 115/69 Pulse Oximetry 94 91 Oxygen Delivery Method Oxygen Flow Rate Fraction of Inspired Oxygen 03/01/25 17:15 03/01/25 17:30 03/01/25 17:30 Temperature Pulse Rate 95 H Respiratory Rate 26 H Blood Pressure 119/71 118/70 Pulse Oximetry 93 Oxygen Delivery Method Oxygen Flow Rate Fraction of Inspired Oxygen 03/01/25 18:00 03/01/25 18:30 03/01/25 19:00 Temperature Pulse Rate 108 H 104 H 93 H Respiratory Rate 23 19 23 Blood Pressure Pulse Oximetry 83 L 91 91 Oxygen Delivery Method Oxygen Flow Rate Fraction of Inspired Oxygen 03/01/25 19:30 03/01/25 20:00 03/01/25 20:30 Temperature Pulse Rate 92 H 88 90 Respiratory Rate 18 21 16 Blood Pressure Pulse Oximetry 91 89 L 89 L Oxygen Delivery Method Oxygen Flow Rate Fraction of Inspired Oxygen 03/01/25 20:55 03/01/25 21:00 03/01/25 21:30 Temperature Pulse Rate 86 85 85 Respiratory Rate 18 25 H Blood Pressure Pulse Oximetry 95 93 91 Oxygen Delivery Method Room Air Nasal Cannula Oxygen Flow Rate 1 Fraction of Inspired Oxygen 21 03/01/25 22:00 03/01/25 22:30 03/01/25 23:00 Temperature Pulse Rate 82 80 79 Respiratory Rate Blood Pressure Pulse Oximetry 92 92 93 Oxygen Delivery Method Oxygen Flow Rate Fraction of Inspired Oxygen 03/01/25 23:14 03/01/25 23:30 Temperature Pulse Rate 80 Respiratory Rate Blood Pressure Pulse Oximetry 92 Oxygen Delivery Method Nasal Cannula Oxygen Flow Rate Fraction of Inspired Oxygen Fraction of Inspired Oxygen 21 SaO2/FiO2 Ratio 428 Oxygen Delivery Method Nasal Cannula Oxygen Flow Rate 1 Narrative Exam Narrative: General - in no distress RS - decraesed airflow b/l with expiratory wheezes CVS - RRR Abd -not distended Ext -w/o swelling Neuro - lucid, Objective ECG Impression: Sinus tachycardia 108 QTc [address] changes Imaging CT scan - head: Radiologist's impression: Postsurgical changes from right parieto-occipital craniotomy and resection of the prior mass. No acute intracranial hemorrhage or mass effect. CTA Head and Neck: Radiologist's impression: No significant intracranial arterial abnormality is seen. No significant abnormality is seen within the arteries of the neck. Labs 03/02/25 05:35 03/01/25 16:25 Labs: Laboratory Results - last 24 hr 03/01/25 03/01/25 03/01/25 16:25 20:33 20:44 WBC 2.2 L RBC 4.15 Hgb 13.2 Hct 41.1 MCV 99.0 MCH 31.7 MCHC 32.0 RDW 17.0 H Plt Count 421 H Neut % (Auto) 92.9 H Lymph % (Auto) 5.1 L [place] % (Auto) 1.6 L Eos % (Auto) 0.3 L Baso % (Auto) 0.1 Neut # (Auto) 2100 Lymph # (Auto) 100 L [place] # (Auto) 0 Eos # (Auto) 0 Baso # (Auto) 0 VBG pH 7.36 VBG pCO2 38.8 L VBG pO2 46 H VBG HCO3 22 L VBG Total CO2 21 L VBG O2 Saturation 80 H VBG Base Excess -3.4 L FiO2 % 21.0 % Sodium 141 Potassium 3.6 Chloride 110 H Carbon Dioxide 23 BUN 22 H Creatinine 1.24 H Estimated GFR 46 L BUN/Creatinine Ratio 17.7 Glucose 75 Lactate 2.2 H Calcium 9.0 Magnesium 2.2 Total Bilirubin 0.3 AST 243 H ALT 116 H Alkaline Phosphatase 86 Troponin I 0.013 NT-Pro-B Natriuret Pep 991 H Total Protein 6.8 Albumin 3.9 Globulin 2.9 Albumin/Globulin Ratio 1.3 Lipase 118 SARS-CoV-2 (PCR) Negative Influenza A (RT-PCR) Flu a negative Influenza B (RT-PCR) Flu b negative RSV (PCR) Negative 03/01/25 03/01/25 21:05 23:06 WBC RBC Hgb Hct MCV MCH MCHC RDW Plt Count Neut % (Auto) Lymph % (Auto) [place] % (Auto) Eos % (Auto) Baso % (Auto) Neut # (Auto) Lymph # (Auto) [place] # (Auto) Eos # (Auto) Baso # (Auto) VBG pH VBG pCO2 VBG pO2 VBG HCO3 VBG Total CO2 VBG O2 Saturation VBG Base Excess FiO2 % Sodium Potassium Chloride Carbon Dioxide BUN Creatinine Estimated GFR BUN/Creatinine Ratio Glucose Lactate 2.7 H Calcium Magnesium Total Bilirubin AST ALT Alkaline Phosphatase Troponin I 0.031 NT-Pro-B Natriuret Pep Total Protein Albumin Globulin Albumin/Globulin Ratio Lipase SARS-CoV-2 (PCR) Influenza A (RT-PCR) Influenza B (RT-PCR) RSV (PCR) Assessment & Plan Time-Based Coding :: [TOTAL MINUTES] spent with patient and on the chart (including review of chart, obtaining history, exam, reviewing outside data, placing orders, documenting exam and treatment plan, and counseling patient) on [DATE].
[2025-03-02] MEDS: SODIUM CHLORIDE 0.9% 1,000 ML 150 ML IV ×2 (01:01→07:49)
[2025-03-02 05:42] LABS: Add Manual Diff / Slide Review NO; Hematocrit 32.8 % (36-46); Hemoglobin 10.7 g/dL (12.0-16.0); Lymphocytes Absolute Auto 100 /uL (1100-4500); Mean Corpuscular HGB Conc 32.7 % (30-36); Mean Corpuscular Hemoglobin 32.6 PG (26-34); Mean Corpuscular Volume 99.7 fL (80-100); Platelet Count 329 X10^3/uL (150-400)
[2025-03-02 06:04] LABS: Blood Urea Nitrogen 28 mg/dL (7-17); Calcium 8.1 mg/dL (8.4-10.2); Carbon Dioxide 21 mmol/L (22-32); Chloride 112 mmol/L (98-107); Estimated Glomerular Filt Rate 36 mL/min (>60); Glucose 182 mg/dL (70-99); HEMOLYSIS < 15 (0-50); Potassium 5.3 mmol/L (3.4-5.1); Sodium 137 mmol/L (137-145)
[2025-03-02] MEDS: ALBUTEROL 2.5 MG/3 ML NEB (ADULT) INH ×2 (07:34→08:58)
[2025-03-02] MEDS: LEVOTHYROXINE 88 MCG TABLET PO (09:28)
[2025-03-02] MEDS: ALBUTEROL/IPRATROPIUM 3 ML AMPUL INH ×2 (09:28→16:00)
[2025-03-02] MEDS: FAMOTIDINE 20 MG TABLET PO (09:29)
[2025-03-02] MEDS: ASPIRIN 81 MG CHEW TAB PO (09:29)
[2025-03-02] MEDS: ENOXAPARIN 30 MG/0.3 ML SYRINGE SUBCUT (09:29)
[2025-03-02] MEDS: MORPHINE ER 15 MG TABLET PO (09:32)
[2025-03-02] MEDS: TOPIRAMATE 100 MG TABLET 200 MG PO ×2 (11:38→21:00)
[2025-03-02] MEDS: VENLAFAXINE ER 75 MG CAP 150 MG PO (11:38)
[2025-03-02] MEDS: ACETAMINOPHEN 325 MG TABLET 975 MG PO (11:40)
[2025-03-02] MEDS: MULTIVITAMIN 1 TABLET 1 TAB PO (11:40)
--- NOTE | 2025-03-02 11:56 | DI.ECHO.S_ITS ---
[place] +---------+ Hospital : : [address] : : [place] : : [id number] : : Phone: [phone] Echocardiogram Report + + :Name: GISELA CARTER Study Date: 03/02/2025 Height: 63 in : :[facility] ReadingLocation: Weight: 112 lb : : Gender: Female BSA: 1.5 m2 : :: 1950 Age: 74 yrs BP: 132/77 mmHg: :Reason For Study: CHF : :Ordering Physician: IVY, : :MARIA Pa Performed By: Mohsen Diaz : :Referring: MARIA HAYNES : + + Interpretation Summary The left ventricle is normal in size. Left ventricular systolic function appears normal without focal wall motion abnormalities. The ejection fraction is estimated to be 60-65%. Diastolic parameters suggest a relaxation abnormality of the left ventricle, consistent with probable normal filling pressures. The right ventricle is normal in size and function. The left atrial size is normal. There is no significant valvular heart disease. The aortic root is normal size. Procedure: A two-dimensional transthoracic echocardiogram with color flow and Doppler was performed. The study quality was technically good. There is no prior echocardiogram noted for this patient. The patient was in normal sinus rhythm during the exam. Left Ventricle: The left ventricle is normal in size. Left ventricular wall thickness is mildly increased. There is no ventricular septal defect visualized. Left ventricular systolic function appears normal without focal wall motion abnormalities. The ejection fraction is estimated to be 60-65%. Diastolic parameters suggest a relaxation abnormality of the left ventricle, consistent with probable normal filling pressures. Right Ventricle: The right ventricle is normal in size and function. Atria: The left atrial size is normal. Right atrial size is normal. There is no Doppler evidence for an interatrial shunt. Mitral Valve: There is mild mitral annular calcification. The mitral valve leaflets appear mildly thickened. The mitral valve leaflets are mildly calcified. There is no mitral regurgitation noted. Aortic Valve: The aortic valve is trileaflet. The aortic valve is slightly calcified. The aortic valve opens well. No aortic regurgitation is present. Tricuspid Valve: The tricuspid valve leaflets are thin and pliable. No tricuspid regurgitation. Pulmonic Valve: The pulmonic valve leaflets are thin and pliable; valve motion is normal. There is no pulmonic valvular regurgitation. There is no significant valvular heart disease. Great Vessels: The aortic root is normal size. The dimensions of the ascending aorta are normal. The pulmonary artery is normal size. The IVC is dilated (diameter is greater than 2.1 cm) and it collapses less than 50% with a sniff. This suggests a high right atrial pressure of 15 mm Hg. Pericardium/ Pleura There is no pericardial effusion. There is no pleural effusion. MMode/2D Measurements & Calculations LVIDd: 4.5 cm LVOT diam: 2.2 cm LVIDs: 3.2 cm Ao root diam: 3.2 cm FS: 28.7 % asc Aorta Diam: 3.4 cm EPSS: 0.43 cm IVSd: 1.0 cm LVPWd: 0.96 cm LV brooks. diameter/BSA (cm/m^2): 2.9 LV sys. diameter/BSA (cm/m^2): 2.1 LA A2 area: 12.6 cm2 RA long axis: 4.2 cm LA A4 area: 15.0 cm2 RA area: 11.6 cm2 LA length (vol): 4.8 cm RA vol: 27.7 ml LA vol: 33.7 ml RA : 18.3 ml/m2 LA vol index: 22.3 ml/m2 IVC diam: 2.3 cm RVD1 (basal): 3.1 cm RVD2 (mid): 2.4 cm TAPSE: 1.7 cm Doppler Measurements & Calculations Ao V2 max: 89.0 cm/sec LVOT Max Jerry: 77.5 cm/sec Ao V2 mean: 68.8 cm/sec LV V1 max P.4 mmHg Ao max P.2 mmHg LV V1 VTI: 13.8 cm Ao mean P.0 mmHg DIANA(I,D): 2.9 cm2 Ao V2 VTI: 17.3 cm DIANA(V,D): 3.2 cm2 sev ratio: 0.80 DIANA indexed to BSA (cm^2/m^2): 1.9 MV E max jerry: 47.5 cm/sec PA V2 max: 59.3 cm/sec MV A max jerry: 91.3 cm/sec PA V2 mean: 47.6 cm/sec MV E/A: 0.52 PA mean P.96 mmHg Med Peak E' Jerry: 3.9 cm/sec PA pr(Accel): 63.6 mmHg E/E' med: 12.3 Lat Peak E' Jerry: 3.6 cm/sec E/E' lat: 13.3 E/e' average: 12.8 MV dec time: 0.16 sec SV(LVOT): 50.2 ml RV S Vel_phl: 8.9 cm/sec Reading Physician:01:54 PM
--- NOTE | 2025-03-02 11:57 | DI.CT.S_ITS ---
PROCEDURE: CT CHEST WO CON INDICATIONS: Pneumonia TECHNIQUE: Noncontrast 5 mm thick sections acquired from the pulmonary apices to the posterior costophrenic angles. 1 mm lung window, 5 mm thick coronal and sagittal and 7 mm axial MIP reformats were then acquired. For radiation dose reduction, the following was used: automated exposure control, adjustment of mA and/or kV according to patient size. COMPARISON: CT chest [facility] 02/03/2024. Prior report is not available. FINDINGS: Image quality: Diagnostic. Some images are limited by beam hardening artifacts and no IV contrast . Moderate peribronchial thickening, alveolar opacification and areas of consolidation most notably in the posterior inferior right middle lobe and throughout the right lower lobe basal segments suspicious for aspiration pneumonitis and or pneumonia. Follow- up is needed. Mild right pleural effusion, trace left pleural effusion. Otherwise the left lung is relatively clear. [id number] centrilobular COPD/emphysematous changes in the upper lobes. Mild cardiomegaly with four-chamber enlargement. Moderate calcifications of the coronary arteries, aortic arch and descending aorta unchanged. Nonspecific wall thickening of the distal esophagus into the stomach more than expected for artifact from partial nondistention and gastritis or other process could be considered similar to the prior exam. There previously noted retroperitoneal, adrenal nodules/masses are not imaged on this chest CT exam. No pneumothorax, no significant pericardial effusion. Moderate degenerative changes of the lower cervical, thoracic spine. Leads from an epidural pain control or other device extending from the inferior margin of the images cephalad to approximately T5 unchanged. A few mildly enlarged mediastinal, hilar lymph nodes the largest right lower lobe paratracheal measuring up to 1 point 0 cm short axis commonly reactive/inflammatory although pathologically enlarged nodes not excluded relatively unchanged. Mildly prominent pulmonary artery outflow tract, right and left main pulmonary arteries measuring up to 3.2, 3.0, 2.7 cm diameter unchanged possible pulmonary arterial hypertension. IMPRESSION: Right lower lobe and to a lesser degree right middle lobe alveolar opacification and areas of consolidation suspicious for aspiration pneumonitis. Pneumonia should be considered. Mild right and trace left pleural effusions. Cardiomegaly unchanged. Other findings as above. Results discussed with Dr. Anthnoy Ruiz MD 03/02/2025 at 3:08 p.m. Dictated by: Edward Mary M.D. on 03/02/2025 at 15:06 Approved by: Edward Mary M.D. on 03/02/2025 at 15:16
--- NOTE | 2025-03-02 14:11 | P.PN_ITS ---
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 Additional medical history of craniotomy for tumor excision, HTN, anxiety, depression, hypothyroidism, Hx of NSTEMI. She feels worse dyspnea then usual and feels fatigued. Wheezy and needs oxygen to saturate in 90-ies. She does not have chest pain or headache. Treated with steroid, antibiotic and inhaled bronchodilators and admitted with PNA and COPD exacerbation and acute hypoxemia. 03/02: She lives in her own home with her who is also quite elderly but still able to assist her. Her daughter lives nearby. Her daughter says that she is DNR and has a POLST form at home which she will bring in. Isa Denise is her PCP. The troponin is 0.031 with a BNP of 991. The AST is 243 with an ALT of 116. The lactic acid level is 2.7. The creatinine has risen from 1.24- 1.53. The potassium has risen from 3.6-5.3. The hemoglobin is 10.7. She remains hypoxic, needing 3-4 L nasal cannula. The ejection fraction is 60-65% on her echocardiogram. There is no valvular heart disease. The chest CT clarifies the chest x-ray imaging as consistent with right lower lobe infiltrate/aspiration pneumonia. [facility] Medical History CVA (cerebral vascular accident) Social History household members: spouse Smoking Status: Former smoker Allergies Laboratory Results - last 24 hr 03/01/25 03/01/25 16:25 20:33 WBC 2.2 L RBC 4.15 Hgb 13.2 Hct 41.1 MCV 99.0 MCH 31.7 MCHC 32.0 RDW 17.0 H Plt Count 421 H Neut % (Auto) 92.9 H Lymph % (Auto) 5.1 L [place] % (Auto) 1.6 L Eos % (Auto) 0.3 L Baso % (Auto) 0.1 Neut # (Auto) 2100 Lymph # (Auto) 100 L [place] # (Auto) 0 Eos # (Auto) 0 Baso # (Auto) 0 VBG pH 7.36 VBG pCO2 38.8 L VBG pO2 46 H VBG HCO3 22 L VBG Total CO2 21 L VBG O2 Saturation 80 H VBG Base Excess -3.4 L FiO2 % 21.0 % Sodium 141 Potassium 3.6 Chloride 110 H Carbon Dioxide 23 BUN 22 H Creatinine 1.24 H Estimated GFR 46 L BUN/Creatinine Ratio 17.7 Glucose 75 Lactate 2.2 H Calcium 9.0 Magnesium 2.2 Total Bilirubin 0.3 AST 243 H ALT 116 H Alkaline Phosphatase 86 Troponin I 0.013 NT-Pro-B Natriuret Pep 991 H Total Protein 6.8 Albumin 3.9 Globulin 2.9 Albumin/Globulin Ratio 1.3 Lipase 118 Assessment & Plan Assessment and plan Aspiration Pneumonia / stage 4 Lung carcinoma with brain metastases - Rocephin, Zithromax on admission, changed to Zosyn based on CT Chest RLL Aspiration Pneumonia - bronchodilators, Mucinex - prednisone - IVF 100 ml/h (Normal Echo despite BNP 991) Acute hypoxemic respiratory failure - oxygen Chronic pain / opiate use - MS Contin, [place] - related to metastatic lung carcinoma Hypothyroidism - levothyroxine Anxiety / Depression - prn lorazepam - Effexor, Topamax, propranolol DVT prophylaxis - Lovenox GI prophylaxis - Pepcid Code Status DNR Disposition: 03/04 to home versus SNF. Exam Vital Signs (past 8 hours): - 03/02/25 06:30 03/02/25 06:34 03/02/25 07:00 Temperature 98.6 F Pulse Rate 75 74 Respiratory Rate Blood Pressure Pulse Oximetry 93 Oxygen Delivery Method Oxygen Flow Rate Fraction of Inspired Oxygen 03/02/25 07:30 03/02/25 07:41 03/02/25 08:00 Temperature Pulse Rate 73 72 72 Respiratory Rate 32 H Blood Pressure Pulse Oximetry 93 96 95 Oxygen Delivery Method Nasal Cannula Oxygen Flow Rate 3 Fraction of Inspired Oxygen 32 03/02/25 08:00 03/02/25 08:30 03/02/25 09:00 Temperature Pulse Rate 73 74 Respiratory Rate 22 Blood Pressure 124/76 Pulse Oximetry 96 94 Oxygen Delivery Method Oxygen Flow Rate Fraction of Inspired Oxygen 03/02/25 09:30 03/02/25 10:55 Temperature 98.6 F Pulse Rate 75 82 Respiratory Rate 25 H 22 Blood Pressure 137/77 Pulse Oximetry 93 92 Oxygen Delivery Method Oxygen Flow Rate 4 Fraction of Inspired Oxygen Fraction of Inspired Oxygen 32 SaO2/FiO2 Ratio 293 Oxygen Delivery Method Nasal Cannula Oxygen Flow Rate 4 Narrative Exam Narrative: Alert and oriented x3. Moderately severe respiratory distress when trying to swallow. Heart is regular rate and rhythm without murmur. Lungs are clear to auscultation bilaterally. Extremities have no ankle edema. Objective Labs 03/02/25 05:35 03/02/25 05:35 Labs: Laboratory Results - last 24 hr 03/01/25 03/01/25 03/01/25 16:25 20:33 20:44 WBC 2.2 L RBC 4.15 Hgb 13.2 Hct 41.1 MCV 99.0 MCH 31.7 MCHC 32.0 RDW 17.0 H Plt Count 421 H Neut % (Auto) 92.9 H Lymph % (Auto) 5.1 L [place] % (Auto) 1.6 L Eos % (Auto) 0.3 L Baso % (Auto) 0.1 Neut # (Auto) 2100 Lymph # (Auto) 100 L [place] # (Auto) 0 Eos # (Auto) 0 Baso # (Auto) 0 VBG pH 7.36 VBG pCO2 38.8 L VBG pO2 46 H VBG HCO3 22 L VBG Total CO2 21 L VBG O2 Saturation 80 H VBG Base Excess -3.4 L FiO2 % 21.0 % Sodium 141 Potassium 3.6 Chloride 110 H Carbon Dioxide 23 BUN 22 H Creatinine 1.24 H Estimated GFR 46 L BUN/Creatinine Ratio 17.7 Glucose 75 Lactate 2.2 H Calcium 9.0 Magnesium 2.2 Total Bilirubin 0.3 AST 243 H ALT 116 H Alkaline Phosphatase 86 Troponin I 0.013 NT-Pro-B Natriuret Pep 991 H Total Protein 6.8 Albumin 3.9 Globulin 2.9 Albumin/Globulin Ratio 1.3 Lipase 118 SARS-CoV-2 (PCR) Negative Influenza A (RT-PCR) Flu a negative Influenza B (RT-PCR) Flu b negative RSV (PCR) Negative 03/01/25 03/01/25 03/02/25 21:05 23:06 05:35 WBC 6.5 D RBC 3.29 L Hgb 10.7 L Hct 32.8 L MCV 99.7 MCH 32.6 MCHC 32.7 RDW 16.8 H Plt Count 329 Neut % (Auto) 89.0 H Lymph % (Auto) 0.9 L [place] % (Auto) 9.6 Eos % (Auto) 0.1 L Baso % (Auto) 0.4 Neut # (Auto) 5800 Lymph # (Auto) 100 L [place] # (Auto) 600 Eos # (Auto) 0 Baso # (Auto) 0 VBG pH VBG pCO2 VBG pO2 VBG HCO3 VBG Total CO2 VBG O2 Saturation VBG Base Excess FiO2 % Sodium 137 Potassium 5.3 H D Chloride 112 H Carbon Dioxide 21 L BUN 28 H Creatinine 1.53 H Estimated GFR 36 L BUN/Creatinine Ratio 18.3 Glucose 182 H D Lactate 2.7 H Calcium 8.1 L Magnesium Total Bilirubin AST ALT Alkaline Phosphatase Troponin I 0.031 NT-Pro-B Natriuret Pep Total Protein Albumin Globulin Albumin/Globulin Ratio Lipase SARS-CoV-2 (PCR) Influenza A (RT-PCR) Influenza B (RT-PCR) RSV (PCR) PFSH Medical History (Updated 03/01/25 @ 21:11 by Ernie Maldonado MD) CVA (cerebral vascular accident) Social History household members: spouse Smoking Status: Former smoker Assessment & Plan Time-Based Coding :: [TOTAL MINUTES] spent with patient and on the chart (including review of chart, obtaining history, exam, reviewing outside data, placing orders, documenting exam and treatment plan, and counseling patient) on [DATE].
--- NOTE | 2025-03-02 14:40 | PC.NURSE ---
Patient declines wanting to answer admission questions at this time. States she is having a hard time remembering.
[2025-03-02] MEDS: SODIUM CHLORIDE 0.9% 1,000 ML 100 ML IV ×2 (16:54→16:55)
[2025-03-02] MEDS: PIPERACILLIN/TAZO 4.5 GM in SODIUM CHLORIDE 0.9% 100 ML IV (16:59)
[2025-03-02 19:12] LABS: Bilirubin Urine UA 1+ (NEGATIVE); Glucose Urine UA NEGATIVE (Negative); Ketones Urine UA NEGATIVE (NEGATIVE); Leukocyte Esterase Urine UA NEGATIVE (NEGATIVE); Nitrite Urine UA NEGATIVE (Negative); Occult Blood Urine UA NEGATIVE (Negative); Protein Urine UA 2+ (Negative); Specific Gravity Urine UA 1.020 (1.000-1.035); Urobilinogen Urine UA 1.0 E.U./dL (0.2)
[2025-03-02 19:42] LABS: Appearance Urine UA CLOUDY; Color Urine UA ORANGE; Ictotest Urine Negative (Negative); pH Urine UA 6.0 (4.5-8.0)
[2025-03-02 19:43] LABS: Culture Indicated Urine Cult Not Indicated
[2025-03-02] MEDS: SODIUM CHLORIDE 0.9% FLUSH 10 ML IV (21:01)
[2025-03-03] VITALS (7 sets, daily range): BP systolic 141–177; BP diastolic 88–104; PULSE 77–108; RESP 17–100; TEMP 36.3–37.1; O2SAT 94–99
[2025-03-03] MEDS: ALBUTEROL/IPRATROPIUM 3 ML AMPUL INH ×4 (00:29→21:23)
[2025-03-03] MEDS: PIPERACILLIN/TAZO 3.375 GM in SODIUM CHLORIDE 0.9% 100 ML IV ×3 (01:56→16:59)
[2025-03-03 04:41] LABS: Add Manual Diff / Slide Review NO; Hematocrit 32.9 % (36-46); Hemoglobin 10.7 g/dL (12.0-16.0); Lymphocytes Absolute Auto 200 /uL (1100-4500); Mean Corpuscular HGB Conc 32.4 % (30-36); Mean Corpuscular Hemoglobin 32.3 PG (26-34); Mean Corpuscular Volume 99.5 fL (80-100); Platelet Count 282 X10^3/uL (150-400)
[2025-03-03 04:52] LABS: Alanine Aminotransferase 652 IU/L (<35); Albumin 3.3 g/dL (3.5-5.0); Albumin Globulin Ratio 1.2 (1.0-2.8); Alkaline Phosphatase 91 U/L (38-126); Blood Urea Nitrogen 33 mg/dL (7-17); Calcium 8.2 mg/dL (8.4-10.2); Carbon Dioxide 19 mmol/L (22-32); Chloride 113 mmol/L (98-107); Estimated Glomerular Filt Rate 41 mL/min (>60); Globulin 2.8 g/dL (1.7-4.1); Glucose 125 mg/dL (70-99); HEMOLYSIS < 15 (0-50); Potassium 4.2 mmol/L (3.4-5.1); Sodium 139 mmol/L (137-145); Total Protein 6.1 g/dL (6.3-8.2)
[2025-03-03] MEDS: LEVOTHYROXINE 88 MCG TABLET PO (06:53)
[2025-03-03] MEDS: SODIUM CHLORIDE 0.9% 1,000 ML 100 ML IV (07:51)
[2025-03-03] MEDS: MORPHINE ER 15 MG TABLET PO ×2 (09:15→23:18)
[2025-03-03] MEDS: TOPIRAMATE 100 MG TABLET 200 MG PO ×2 (09:15→22:11)
[2025-03-03] MEDS: MULTIVITAMIN 1 TABLET 1 TAB PO (09:16)
[2025-03-03] MEDS: ASPIRIN 81 MG CHEW TAB PO (09:16)
[2025-03-03] MEDS: VENLAFAXINE ER 75 MG CAP 150 MG PO (09:16)
[2025-03-03] MEDS: FAMOTIDINE 20 MG TABLET PO (09:16)
[2025-03-03] MEDS: ENOXAPARIN 30 MG/0.3 ML SYRINGE SUBCUT (09:16)
[2025-03-03] MEDS: SODIUM CHLORIDE 0.9% FLUSH 10 ML IV ×2 (09:17→22:12)
--- NOTE | 2025-03-03 10:24 | P.PN_ITS ---
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 appointment with her oncologist where she got a flu shot and after she arrived home she felt weak short of breath with no energy so was brought in via EMS for further evaluation. Additional medical history of craniotomy for tumor excision, HTN, anxiety, depression, hypothyroidism, Hx of NSTEMI. She feels worse dyspnea then usual and feels fatigued. Wheezy and needs oxygen to saturate in 90-ies. She does not have chest pain or headache. Treated with steroid, antibiotic and inhaled bronchodilators and admitted with PNA and COPD exacerbation and acute hypoxemia. 03/02: She lives in her own home with her who is also quite elderly but still able to assist her. Her daughter lives nearby. Her daughter says that she is DNR and has a POLST form at home which she will bring in. Isa Denise is her PCP. The troponin is 0.031 with a BNP of 991. The AST is 243 with an ALT of 116. The lactic acid level is 2.7. The creatinine has risen from 1.24- 1.53. The potassium has risen from 3.6-5.3. The hemoglobin is 10.7. She remains hypoxic, needing 3-4 L nasal cannula. The ejection fraction is 60-65% on her echocardiogram. There is no valvular heart disease. The chest CT clarifies the chest x-ray imaging as consistent with right lower lobe infiltrate/aspiration pneumonia. 03/03: Family clarifies that she is actually on the long-acting morphine for low back pain and not for cancer. She complains of a headache and says Tylenol works well for that. We discussed her aspiration pneumonia and a speech therapy swallow eval will be done. Her is present today. He appears to be possibly hard of hearing or have some cognitive slowing. She apparently has very labile rage secondary to her frontal lobe tumor and possibly the prednisone, which she focuses on him, and then immediately feels very apologetic. History is provided by her daughter who is quite capable and helpful. They are agreeable to a referral to hospice in the context of her lung cancer and now aspiration pneumonia. The liver enzymes continue to climb. The white blood count gamaliel from 6.4 up to 12.3. The hemoglobin is stable. Blood pressure and heart rate are both elevated. Assessment and plan Aspiration Pneumonia / stage 4 Lung carcinoma with brain metastases - Rocephin, Zithromax on admission, changed to Zosyn based on CT Chest RLL Aspiration Pneumonia - bronchodilators, Mucinex - prednisone - IVF 100 ml/h (Normal Echo despite BNP 991) - Rising Liver Enzymes likely cancer related - per discussion with SS she and her family are agreeable to a hospice referral. Acute hypoxemic respiratory failure - oxygen Chronic pain / opiate use - Felipe Swan (from [facility]) - related to chronic back pain Hypothyroidism - levothyroxine Anxiety / Depression / Labile Rage - prn lorazepam - Effexor, Topamax, propranolol Rising Liver Enzymes - Cancer related. HTN - Losartan - follow DVT prophylaxis - Lovenox GI prophylaxis - Pepcid Code Status DNR Disposition: 03/04 to home versus SNF. Hospice referral. Exam Vital Signs (past 8 hours): - 03/03/25 08:00 03/03/25 09:30 Temperature 98.7 F Pulse Rate 77 108 H Respiratory Rate 20 24 Blood Pressure 177/104 H Pulse Oximetry 96 96 Oxygen Delivery Method Nasal Cannula Oxygen Flow Rate 4 4 Fraction of Inspired Oxygen 32 SaO2/FiO2 Ratio 293 Oxygen Delivery Method Nasal Cannula Oxygen Flow Rate 4 Narrative Exam Narrative: She is smiling, pleasant, without signs of distress today. She is fully oriented. Heart is regular rate and rhythm without murmur. Lungs are clear to auscultation bilaterally. Extremities have no ankle edema. Objective Labs 03/03/25 04:22 03/03/25 04:22 Labs: Laboratory Results - last 24 hr 03/02/25 03/03/25 18:30 04:22 WBC 12.3 H D RBC 3.30 L Hgb 10.7 L Hct 32.9 L MCV 99.5 MCH 32.3 MCHC 32.4 RDW 17.2 H Plt Count 282 Neut % (Auto) 89.2 H Lymph % (Auto) 1.9 L [place] % (Auto) 7.8 Eos % (Auto) 0.9 L Baso % (Auto) 0.2 Neut # (Auto) 48760 H Lymph # (Auto) 200 L [place] # (Auto) 1000 H Eos # (Auto) 100 Baso # (Auto) 0 Sodium 139 Potassium 4.2 Chloride 113 H Carbon Dioxide 19 L BUN 33 H Creatinine 1.36 H Estimated GFR 41 L BUN/Creatinine Ratio 24.3 H Glucose 125 H Calcium 8.2 L Total Bilirubin 0.5 AST 299 H ALT 652 H Alkaline Phosphatase 91 Total Protein 6.1 L Albumin 3.3 L Globulin 2.8 Albumin/Globulin Ratio 1.2 Urine Color [place] Urine Appearance Cloudy Urine pH 6.0 Ur Specific [place] 1.020 Urine Protein 2+ H Urine Glucose (UA) Negative Urine Ketones Negative Urine Occult Blood Negative Urine Nitrate Negative Urine Bilirubin 1+ H Ur Bilirubin Confirm Negative Urine Urobilinogen 1.0 Ur Leukocyte Esterase Negative Urine RBC None seen Urine WBC 0-1/hpf Ur Squamous Epith Cells 1-5 /hpf Urine Bacteria Few (2-10) H Urine Yeast 1-5/hpf H Ur Culture Indicated? Cult not indicated Vol Urine Centrifuged 10ml (spun) [facility] Medical History (Updated 03/01/25 @ 21:11 by Ernie Maldonado MD) CVA (cerebral vascular accident) Social History household members: spouse Smoking Status: Former smoker Assessment & Plan Time-Based Coding :: [TOTAL MINUTES] spent with patient and on the chart (including review of chart, obtaining history, exam, reviewing outside data, placing orders, documenting exam and treatment plan, and counseling patient) on [DATE].
--- NOTE | 2025-03-03 13:37 | ST.IPCSEOM ---
Visit Care Team Role Provider Type Talon Preciado DO Referring Provider Physician Specialty: Emergency Medicine Address: [address] [place] [address], [id number] Phone: Fax: Email: [email or web address] JUAN Lindo Primary Care Provider Non-Staff Specialty: Family Practice Address: [address] [place] [address], [id number] Email: Ernie Maldonado MD Admit Provider Physician Attending Provider Emergency Provider Specialty: Internal Medicine Address: [address] [place] [address], [id number] Email: [email or web address] Diagnoses Malignant neoplasm of unspecified part of unspecified bronchus or lung (03/01/25) Pneumonia, unspecified organism (03/01/25) Chronic obstructive pulmonary disease with (acute) exacerbation (03/01/25) Past Medical History (Last Reviewed 06/06/22 @ 13:45 by Awilda Patel PA-C) CVA (cerebral vascular accident) (Medical) Speech-Language Pathology Swallow Evaluation RIGGER HELPER Clinical Swallow Evaluation Start: 03/03/25 12:48 Freq: Status: Active Protocol: Document 03/03/25 12:49 SS (Rec: 03/03/25 12:59 SS [email or web address]) Clinical Swallow Evaluation Session Time Visit Start Time 12:20 Visit Stop Time 12:45 Total Visit Minutes 25 Visit Information Visit Number [address] 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 Information was mostly obtained from daughter at bedside. Other than what is stated 14 point review of system is negative. Additional medical history of craniotomy for tumor excision, HTN, anxiety, depression, hypothyroidism, Hx of NSTEMI. She feels worse dyspnea then usual and feels fatigued. Wheezy and needs oxygen to saturate in 90-ies. She does not have chest pain or headache. Treated with steroid, antibiotic and inhaled bronchodilators and admitted with PNA and COPD exacerbation and acute hypoxemia. Chest x-ray showed Low lung volumes bilaterally. Right basilar opacity may be secondary to atelectasis, aspiration, or pneumonia. Clinical swallowing evaluation completed to assess current swallowing function, assess aspiration risk, and determine need for further instrumental study. Subjective Chart reviewed and RN consulted. RN reported pt Observations receiving supplemental oxygen via NC. Has not noted overt s/sx of aspiration. Pt alert and oriented upon RIGGER HELPER arrival. She demonstrated audible breathing and stated she was feeling fatigued. RIGGER HELPER assisted with bed remotes for upright positioning before PO trials. Pt reported she eats a regular diet at home, though has had minimal appetite for some time now. Pt denied overt s/sx of aspiration with intake. She has lost weight over the past 6 months, but this is likely to her overall medical condition, rather than swallowing function specifically. pt with NC in place with SPo2 at 96-98, with no change during PO intake. Pt reported having PNA around 2019, though no re-occurrences since to her knowledge. Reported by Patient/Caregiver Other Symptoms History of aspiration or pneumonia,Weight loss Current Diet Regular (IDDSI 7) Baseline Feeding Independent in self-feeding Method The IDDSI Framework Protocol: IDDSI.1 Objective Assessment Mental Status Alert,Responsive,Cooperative Oral Integrity WFL Dentition Missing teeth Lip Function Within normal limits Tongue Function Within normal limits Jaw Function Within normal limits Hard/Soft Palate Within normal limits Function Comment Pt missing many teeth on top and bottom and oral health appears to be poor. Food and Liquid Trials Position During Upright (90 degrees) Assessment Liquids Trialed Thin (IDDSI 0) Solid Trials Purred (IDDSI 4),Soft & Bite-sized (IDDSI 6),Regular ( IDDSI 7) Administration Type Cup single sip,Cup consecutive sips,Straw,Self-feeding Oral Impairment Within functional limits Oral Phase Comments Pt observed across trials of thin liquids (>3 oz water) via cup and straw, puree via tsp (apple sauce), soft/ bite sized via tsp (diced peaches), and regular ( cracker). Pt fed self independently. Pt exhibited adequate bolus retrieval with no anterior loss. Bolus manipulation appeared mildly prolonged. Pt demonstrated reduced oral clearance resulting in oral residue, which she cleared independently with liquid wash and lingual sweep. Pharyngeal Within normal limits Impairment Pharyngeal Phase Pt did not demonstrate overt s/sx of possible Comments pharyngeal dysphagia across trials. No change to vocal quality following trials or to SPo2 levels. No globus sensation reported. Fatigue/Endurance Moderate fatigue Comment Frequent breaks due to fatigue and respiratory insufficiency. [place] Swallow Yes Protocol Results The [place] Swallow Protocol is an evidence-based swallow screening protocol to determine aspiration risk. This tool has been validated across a number of different patient diagnoses and in a number of clinical settings. This is the only screening instrument that both identifies aspiration risk and, when passed, is able to recommend specific oral diets without the need for further instrumental dysphagia testing. Based upon research by Drs. Magdi Zheng and Paloma Sage, this is a reliable and validated swallow screening protocol. Cognitive Screen: PASS Results with 3oz water test: PASS Results with cracker: PASS The IDDSI Framework Protocol: IDDSI.1 Findings Swallowing Function Within functional limits Severity of Swallow Within functional limits Impairment Contributing Factors Reduced oral strength/coordination/sensation, to Swallow Mastication inefficiency,Impaired oral-pharyngeal Impairment transport,Delayed swallow initiation Comment Pt presents with within functional limits swallowing at this time. Oral phase was largely timely despite missing dentition and generalized weakness per observation. Pharyngeal phase cannot be assessed at bedside though subjectively appeared timely and coordinated. Pt passed the 3 ounce water test. No overt s/sx of aspiration observed with all PO trials. Recommend pt continue baseline diet of regular textures (self-selecting softer foods as needed) and thin liquids with adherence to aspiration precautions below. Please re-consult if changes to swallowing function. RN and MD notified of assessment results and recommendations. Impact on Safety and Risk for inadequate nutrition/hydration Functioning Recommendations Instrumental No Assessment Swallowing Treatment No Recommended Solids Regular (IDDSI 7) Recommended Liquids Thin (IDDSI 0) Safety Precautions/ Remain upright (90 degrees) during all oral intake, Swallowing Upright position at least 30 minutes after meals,Small Recommendations bites and sips when eating,Slow rate; swallow between bites Medication As Tolerated Recommendations Discharge Home,Home with Hospice Recommendations Referrals Recommended Dietary Referrals Education Patient/Caregiver Described results of evaluation,Patient expressed Education understanding of evaluation,Patient expressed agreement with goals & treatment plans
--- NOTE | 2025-03-03 15:03 | CM.DANOTE ---
Initial DCP Assessment Visit Note Reviewed EMR and team rounds for pt's medical status and updates. Pt lives modified/mostly dependent on her dtr, Trinity, and spouse for care needs, care coordination, and home maintainance needs. Pt has been declining more rapidly, likely will be discharged home with hospice. She may end up d/c'ing to SNF, this is in transition. Family will transport at d/c. Payor: Medicare PCP: Isa Denise Pt is a 74 year-old F with a PMH of stage IV lung cancer with brain mets, non-Hodgkin's lymphoma, and thromocytosis HTN. She rpesented to the ED with worsening weakness and SOB. She is currently in active chemo tx with Nahid Huston, however has been declining overall in functioning and cognition despite tx. It has reportedly become very difficult to get her to [place], and it's become more of a burden for her to receive tx than a benefit. She presents as emotionally labile, can be angry/lash out at her spouse one minute, and cry uncontrollable the next. Dtr has been providing for care, and has used up all of her FMLA from her job. ED imaging showed bilateral pneumonia. She was started on breathing treatments and IV antibiotics, and admitted to the floor for continued symptom management and IV antibiotic tx. Faxed referral and [facility] to [facility] to get started with an informational visit, and hopefully home w/Hospice at d/c. Otherwise, she will go to a SNF, however she likely will not improve due to disease progression. DCP will continue to monitor for any further evolving d/c needs and resources/family support. Discharge Planning/Care Management CM Discharge Assessment Start: 03/01/25 20:55 Freq: Status: Active Protocol: Document 03/03/25 15:00 DPL (Rec: 03/03/25 15:02 DPL [id number]) Discharge Planning Assessment Assigned Discharge MICK Goode Aeronautical Engineering Technologist Provider Isa Denise Insurance Medicare Advance Directives? Yes Advance Directives No on File History Provided By Patient,Family Member,Significant Other Expected Length of 4 Stay Has Patient been No admitted in last 30 days? Prior Living House Arrangements Household Members spouse Comment Dtr Trinity, lives in [place], but is pt's primary cg . Type of Relies on Others transporation used prior to admit Independent with ADL No: modified ind 's Is patient alert and No: confused, oriented to self, place oriented? Needs Assistance Bathing,Grooming,Meal Prep,Managing Medications,Home With Chores / Shopping Caregiver for No Another DME Already Rented / Bath Bench,Elevated Toilet Seat,FWW / Walker Owned Comment Possibly [facility] at home. Barriers to No Discharge Discharge Plan Home Additional Comment [facility] Updated Yes in Patient Room with name and ext. # of Collective Bargaining Specialist Review Status In Process Please Provide Date 03/03/25 Initial DC Assessment Was Performed
[2025-03-04] VITALS (7 sets, daily range): BP systolic 137–162; BP diastolic 91–98; PULSE 68–109; RESP 16–20; TEMP 36.5–36.8; O2SAT 94–99
[2025-03-04] MEDS: SODIUM CHLORIDE 0.9% 1,000 ML 100 ML IV (01:03)
[2025-03-04] MEDS: PIPERACILLIN/TAZO 3.375 GM in SODIUM CHLORIDE 0.9% 100 ML IV ×3 (01:30→18:09)
[2025-03-04] MEDS: LEVOTHYROXINE 88 MCG TABLET PO (07:00)
[2025-03-04] MEDS: ENOXAPARIN 30 MG/0.3 ML SYRINGE SUBCUT (09:21)
[2025-03-04] MEDS: ASPIRIN 81 MG CHEW TAB PO (09:21)
[2025-03-04] MEDS: VENLAFAXINE ER 75 MG CAP 150 MG PO (09:22)
[2025-03-04] MEDS: MORPHINE ER 15 MG TABLET PO ×2 (09:22→21:34)
[2025-03-04] MEDS: TOPIRAMATE 100 MG TABLET 200 MG PO ×2 (09:23→21:33)
[2025-03-04] MEDS: FAMOTIDINE 20 MG TABLET PO (09:23)
[2025-03-04] MEDS: MULTIVITAMIN 1 TABLET 1 TAB PO (09:23)
[2025-03-04] MEDS: ALBUTEROL/IPRATROPIUM 3 ML AMPUL INH ×3 (10:11→20:35)
--- NOTE | 2025-03-04 10:50 | CM.DPC ---
JUAN CARLOS spoke with Lili with Hospice. Per Lili, she will reach out to PT's family today to review goals of care.
--- NOTE | 2025-03-04 12:13 | DIET.CONS2 ---
Dietary Inpatient Consultation Note Admission Date: 03/01/2025 20:43 Pt screened for low MNA score. Per rounds, pt likely to d/c home with hospice. Will f/u if plan of care changes. Diet: 03/02/25 Breakfast General (Regular) Diet Diet Modifications: Nutrition Percent Meal Consumed 50% 03/03/25 18:00 Percent Meal Consumed 50% 03/02/25 18:41 Percent Meal Consumed 25% 03/02/25 15:15 Electronically Signed by: Sarina Tim 03/04/25 12:13 Clinical Dietitian [address] [address]
--- NOTE | 2025-03-04 13:07 | CM.DPC ---
JUAN CARLOS spoke with patient and her DRT, Trinity, at bedside. Per Trinity, Lili with Hospice has yet to reach out for a formal interview to discuss Goals of Care. CM left a message for Lili for the above noted concern. Family Care Support info given to Trinity.
--- NOTE | 2025-03-04 14:32 | CM.DPC ---
?Per Lili at [facility], Home DME will be delivered Sat before Noon and deputy chief counsel will meet with the patient Friday [id number].
--- NOTE | 2025-03-04 15:27 | PM.PN.1 ---
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 Additional medical history of craniotomy for tumor excision, HTN, anxiety, depression, hypothyroidism, Hx of NSTEMI. She feels worse dyspnea then usual and feels fatigued. Wheezy and needs oxygen to saturate in 90-ies. She does not have chest pain or headache. Treated with steroid, antibiotic and inhaled bronchodilators and admitted with PNA and COPD exacerbation and acute hypoxemia. 03/02: She lives in her own home with her who is also quite elderly but still able to assist her. Her daughter lives nearby. Her daughter says that she is DNR and has a POLST form at home which she will bring in. Isa Denise is her PCP. The troponin is 0.031 with a BNP of 991. The AST is 243 with an ALT of 116. The lactic acid level is 2.7. The creatinine has risen from 1.24-1.53. The potassium has risen from 3.6-5.3. The hemoglobin is 10.7. She remains hypoxic, needing 3-4 L nasal cannula. The ejection fraction is 60-65% on her echocardiogram. There is no valvular heart disease. The chest CT clarifies the chest x-ray imaging as consistent with right lower lobe infiltrate/aspiration pneumonia. 03/03: Family clarifies that she is actually on the long-acting morphine for low back pain and not for cancer. She complains of a headache and says Tylenol works well for that. We discussed her aspiration pneumonia and a speech therapy swallow eval will be done. Her is present today. He appears to be possibly hard of hearing or have some cognitive slowing. She apparently has very labile rage secondary to her frontal lobe tumor and possibly the prednisone, which she focuses on him, and then immediately feels very apologetic. History is provided by her daughter who is quite capable and helpful. They are agreeable to a referral to hospice in the context of her lung cancer and now aspiration pneumonia. The liver enzymes continue to climb. The white blood count gamaliel from 6.4 up to 12.3. The hemoglobin is stable. Blood pressure and heart rate are both elevated. 03/04: Hospice has accepted her, beginning tomorrow at home but daughter has some misgivings about caring for her in the context of her recent illness/weakness. Today she is sitting on the edge of the bed, generally looking stronger, likely close to or back to her baseline. She is conversing normally without the air hunger she had from her aspiration pneumonia the 1st day. Assessment and plan Aspiration Pneumonia / stage 4 Lung carcinoma with brain metastases - Rocephin, Zithromax on admission, changed to Zosyn based on CT Chest RLL Aspiration Pneumonia - Plan PO Augmentin to complete 7 day ABX course at home. - bronchodilators, Mucinex - prednisone - IVF 100 ml/h (Normal Echo despite BNP 991), stopped on 03/04 - Rising Liver Enzymes likely cancer related - Transitioning to hospice at home on 03/05. Acute hypoxemic respiratory failure - oxygen Chronic pain / opiate use - Felipe Swan (from [facility]) - related to chronic back pain Hypothyroidism - levothyroxine Anxiety / Depression / Labile Rage - prn lorazepam - Effexor, Topamax, propranolol Rising Liver Enzymes - Cancer related. HTN - Losartan - follow DVT prophylaxis - Lovenox GI prophylaxis - Pepcid Code Status DNR Disposition: 03/05 to home on hospice Exam Vital Signs (past 8 hours): - 03/04/25 08:00 03/04/25 10:11 03/04/25 10:28 Temperature 97.7 F Pulse Rate 68 88 Respiratory Rate 16 18 Blood Pressure 162/98 H Pulse Oximetry 95 99 97 Oxygen Delivery Method Nasal Cannula Room Air Oxygen Flow Rate 2.5 2 Fraction of Inspired Oxygen 28 21 03/04/25 15:20 Temperature Pulse Rate Respiratory Rate Blood Pressure Pulse Oximetry 98 Oxygen Delivery Method Room Air Oxygen Flow Rate Fraction of Inspired Oxygen 21 Fraction of Inspired Oxygen 21 SaO2/FiO2 Ratio 466 Oxygen Delivery Method Room Air Oxygen Flow Rate 2 Narrative Exam Narrative: Alert and oriented x3. Sitting on the edge of her bed, conversing normally. Heart is regular rate and rhythm without murmur. Lungs are clear to auscultation bilaterally. Extremities have no ankle edema. Objective Labs 03/03/25 04:22 03/03/25 04:22 [facility] Medical History (Updated 03/01/25 @ 21:11 by Ernie Maldonado MD) CVA (cerebral vascular accident) Social History household members: spouse Smoking Status: Former smoker Assessment & Plan Time-Based Coding :: [TOTAL MINUTES] spent with patient and on the chart (including review of chart, obtaining history, exam, reviewing outside data, placing orders, documenting exam and treatment plan, and counseling patient) on [DATE].
[2025-03-05] VITALS: BP 153/95; PULSE 89; RESP 18; TEMP 36.5; O2SAT 95
[2025-03-05] MEDS: PIPERACILLIN/TAZO 3.375 GM in SODIUM CHLORIDE 0.9% 100 ML IV (00:26)
[2025-03-05] MEDS: LEVOTHYROXINE 88 MCG TABLET PO (06:15)
[2025-03-05 08:00] VITALS: BP 170/82; PULSE 72; RESP 20; TEMP 36.2; O2SAT 98
--- NOTE | 2025-03-05 08:29 | P.DS_ITS ---
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 Additional medical history of craniotomy for tumor excision, HTN, anxiety, depression, hypothyroidism, Hx of NSTEMI. She feels worse dyspnea then usual and feels fatigued. Wheezy and needs oxygen to saturate in 90-ies. She does not have chest pain or headache. Treated with steroid, antibiotic and inhaled bronchodilators and admitted with PNA and COPD exacerbation and acute hypoxemia. Discharge Providers Provider Date of admission: 03/01/25 20:43 Discharge Date: 03/05/25 Primary care physician: JUAN Lindo Consults: 03/03/25 10:58 Consult to Speech Therapy Evaluate & Treat Comment: Physician Instructions: Evaluate and treat Discharge provider: Shiv Ruiz MD Summary Hospital Course Hospital Course: 03/02: She lives in her own home with her who is also quite elderly but still able to assist her. Her daughter lives nearby. Her daughter says that she is DNR and has a POLST form at home which she will bring in. Isa Denise is her PCP. The troponin is 0.031 with a BNP of 991. The AST is 243 with an ALT of 116. The lactic acid level is 2.7. The creatinine has risen from 1.24- 1.53. The potassium has risen from 3.6-5.3. The hemoglobin is 10.7. She remains hypoxic, needing 3-4 L nasal cannula. The ejection fraction is 60-65% on her echocardiogram. There is no valvular heart disease. The chest CT clarifies the chest x-ray imaging as consistent with right lower lobe infiltrate/aspiration pneumonia. 03/03: Family clarifies that she is actually on the long-acting morphine for low back pain and not for cancer. She complains of a headache and says Tylenol works well for that. We discussed her aspiration pneumonia and a speech therapy swallow eval will be done. Her is present today. He appears to be possibly hard of hearing or have some cognitive slowing. She apparently has very labile rage secondary to her frontal lobe tumor and possibly the prednisone, which she focuses on him, and then immediately feels very apologetic. History is provided by her daughter who is quite capable and helpful. They are agreeable to a referral to hospice in the context of her lung cancer and now aspiration pneumonia. The liver enzymes continue to climb. The white blood count gamaliel from 6.4 up to 12.3. The hemoglobin is stable. Blood pressure and heart rate are both elevated. 03/04: Hospice has accepted her, beginning tomorrow at home but daughter has some misgivings about caring for her in the context of her recent illness/weakness. Today she is sitting on the edge of the bed, generally looking stronger, likely close to or back to her baseline. She is conversing normally without the air hunger she had from her aspiration pneumonia the 1st day. 03/05: Patient appears to be back to her baseline breathing but still weaker than usual. She will be going home on hospice today. Assessment and plan Aspiration Pneumonia / stage 4 Lung carcinoma with brain metastases - Rocephin, Zithromax on admission, changed to Zosyn based on CT Chest RLL Aspiration Pneumonia - PO Augmentin to complete 7 day ABX course at home. - bronchodilators, Mucinex - prednisone for 5 more days at discharge. - IVF 100 ml/h (Normal Echo despite BNP 991), stopped on 03/04 - Rising Liver Enzymes likely cancer related - Transitioning to hospice at home on 03/05. Acute hypoxemic respiratory failure - oxygen Chronic pain / opiate use - Felipe Swan (from [facility]) - related to chronic back pain Hypothyroidism - levothyroxine Anxiety / Depression / Labile Rage - prn lorazepam - Effexor, Topamax, propranolol Rising Liver Enzymes - Cancer related. HTN - Losartan Status at Discharge Cognitive/behavioral status at discharge: at baseline, oriented Functional status at discharge: uses cane/walker Overall status at discharge: patient is progressing back to baseline Exam Vital Signs (past 8 hours): Fraction of Inspired Oxygen 21 SaO2/FiO2 Ratio 447 Oxygen Delivery Method Room Air Oxygen Flow Rate 0 Narrative Exam Narrative: Alert and oriented x3. Staring into space, lost in thought until she hears that she could go home today at which time she becomes quite animated. Heart is tachycardic and regular rhythm without murmur. Lungs are clear to auscultation bilaterally. Extremities have no ankle edema. Objective Labs 03/03/25 04:22 03/03/25 04:22 [facility] Medical History (Updated 03/01/25 @ 21:11 by Ernie Maldonado MD) CVA (cerebral vascular accident) Social History household members: spouse Smoking Status: Former smoker Discharge Plan Discharge Plan Patient Disposition: Hospice - Home Provider Discharge Comment: to be followed at home by [facility] team and medical directors. Discharge orders & Medications Prescriptions: New prednisone 20 mg Tablet 40 mg PO DAILY Qty: 10 0RF oxycodone 10 mg Tablet 10 mg PO Q4HR PRN (Reason: Pain, Severe (7-10)) Qty: 30 0RF amoxicillin-pot clavulanate [Augmentin] 500-125 mg tablet 1 tab PO BID Qty: 10 0RF Continued albuterol sulfate [ProAir HFA] 90 mcg/actuation HFA aerosol inhaler 2 inh inhalation Q8H PRN (Reason: shortness of breath or wheezing) 30 Days Qty: 8.5 1RF morphine [MS Contin] 30 MG tablet extended release 15 mg PO QAM Qty: 0 levothyroxine 88 MCG tablet 0.088 mg PO QAM Qty: 0 simvastatin [Zocor] 20 MG tablet 20 mg PO HS Qty: 0 amlodipine [Norvasc] 10 MG tablet 10 mg PO HS Qty: 0 diazepam [Valium] 5 MG tablet 2.5 - 5 mg PO Q8HP PRN (Reason: Anxiety) Qty: 0 topiramate [Topamax] 100 MG tablet 200 mg PO BID Qty: 0 omega 9-cah-xol-fish oil [Fish Oil] 1,000 (120-180) mg Capsule 1,400 mg PO BID Qty: 0 aspirin 81 MG tablet,chewable 81 mg PO QDAY Qty: 0 [boswellia glucosamin] See Rx Instructions .ROUTE .COMPLEX Qty: 0 Rx Instructions: takes twice a day losartan 50 MG tablet 50 mg PO QDAY Qty: 0 venlafaxine 150 MG capsule,extended release 24hr 150 mg PO QDAY Qty: 0 calcium citrate-vitamin D3 [Citracal Regular] 250 mg-5 mcg (200 unit) Tablet 1,200 mg PO QDAY Qty: 0 multivitamin [Multiple Vitamins] 1 EACH tablet 1 tab PO QDAY Qty: 0 propranolol 120 MG capsule,extended release 24 hr 1 cap PO QDAY biotin 5 mg Capsule 10 mg PO DAILY hydrocodone-acetaminophen 10-325 mg Tablet 1 tab PO TID PRN (Reason: Breakthrough Pain) Discontinued nitrofurantoin macrocrystal 100 mg capsule 100 mg PO BID Qty: 10 0RF Rx Instructions: must administer with a meal/food Follow up/Referrals: Isa Denise ARNP [Primary Care Provider, Family Practice] Diet/Activity/Treatments Diet: Diet as Tolerated Visit Report/Discharge Packet Stand Alone Forms: Patient Portal/API, Stroke Signs & Symptoms Discharge Data Primary Care Provider: Isa Denise
[2025-03-05] MEDS: ALBUTEROL/IPRATROPIUM 3 ML AMPUL INH (09:00)
[2025-03-05 09:01] VITALS: PULSE 111; RESP 16; O2SAT 98
[2025-03-05] MEDS: TOPIRAMATE 100 MG TABLET 200 MG PO (10:18)
[2025-03-05] MEDS: MORPHINE ER 15 MG TABLET PO (10:18)
[2025-03-05] MEDS: ENOXAPARIN 30 MG/0.3 ML SYRINGE SUBCUT (10:18)
[2025-03-05] MEDS: FAMOTIDINE 20 MG TABLET PO (10:19)
[2025-03-05] MEDS: ASPIRIN 81 MG CHEW TAB PO (10:19)
[2025-03-05] MEDS: MULTIVITAMIN 1 TABLET 1 TAB PO (10:19)
[2025-03-05] MEDS: VENLAFAXINE ER 75 MG CAP 150 MG PO (10:20)
--- NOTE | 2025-03-05 11:41 | CM.DPC ---
CM spoke with patient's D[facility]. [facility] confirmed delivery of DME from Hospice. [facility] will arrive at 1215 to pick patient up. GAGE Aleman, aware.
--- NOTE | 2025-03-05 12:46 | PC.NURSE ---
Pt denies any issues at this time. 3 Sitting in chair w/o incidence. Orders received for D/C Home instructions given, pain pill given for transport home RX given as well Pt escorted by staff via W/C to waiting vehicle D/C in stable status
== END 2025-03-05 12:51 | disposition hospice, home (50) | DRG 177 ==
LOC: ED 19:50 → AC 20:43
PROVIDERS: Family Medicine; Admitting Provider Internal Medicine; Emergency Provider Internal Medicine; PCP Nurse Practitioner Family; Referring Provider Family Medicine; Visit Provider Internal Medicine
DX: J69.0 Pneumonitis due to inhalation of food and vomit (principal); J96.01 Acute respiratory failure with hypoxia; C34.90 Malignant neoplasm of unspecified part of unspecified bronchus or lung; C79.31 Secondary malignant neoplasm of brain; J44.0 Chronic obstructive pulmonary disease with (acute) lower respiratory infection; I25.2 Old myocardial infarction; E03.9 Hypothyroidism, unspecified; F41.9 Anxiety disorder, unspecified; F32.A Depression, unspecified; M54.50 Low back pain, unspecified; G89.29 Other chronic pain; I10 Essential (primary) hypertension; Z86.73 Personal history of transient ischemic attack (TIA), and cerebral infarction without residual deficits; Z66 Do not resuscitate; Z87.891 Personal history of nicotine dependence; Z79.891 Long term (current) use of opiate analgesic; Z79.890 Hormone replacement therapy; Z98.890 Other specified postprocedural states
CPT/HCPCS: 36415; 70450; 70496; 70498; 71045; 71250; 80048; 80053; 81001; 82805; 83605; 83690; 83735; 83880; 84484; 85025; 87040; 87637; 92610; 93005; 93010; 93306; 94640; 94760; 94762; 96365; 96367; 96375; 99284; 99285; A9270; J0696; J1650; J2543; J2919; J7030; J7050; J7060; J7613